=== PATIENT | female | born 1945 | race African-American/Black ===

== ENCOUNTER 2021-06-25 11:09 | Outpatient (REF) | payer MEDICAID, SELFPAY | END 2021-06-25 11:10 | disposition home or self-care (01) | LOC: HO.MAMMO 11:09 | PROVIDERS: PCP Student in an Organized Health Care Education/Training Program; Visit Provider Internal Medicine | DX: Z13.89 Encounter for screening for other disorder (principal) ==

== ENCOUNTER 2022-07-19 13:03 | Outpatient (REF) | payer OTHER, SELFPAY ==
[2022-07-19 14:14] LABS: Albumin Level 3.3 g/dL (3.5-5.0); Calcium 8.3 mg/dL (8.4-10.2)
[2022-07-21 14:24] LABS: Calcium (PTHI) 8.5 mg/dL (8.6-10.4); PTHI 86 pg/mL (16-77)
== END 2022-07-19 13:04 | disposition home or self-care (01) ==
LOC: HO.LNP 13:03
PROVIDERS: Visit Provider Surgery
DX: Z98.890 Other specified postprocedural states (principal)
CPT/HCPCS: 82040; 82310; 83970

== ENCOUNTER → 2022-08-31 10:34 | Outpatient (BNVA) | payer OTHER, SELFPAY | PROVIDERS: PCP Student in an Organized Health Care Education/Training Program; Visit Provider Physician Assistant Surgical ==

== ENCOUNTER 2022-11-11 10:49 | Outpatient (AMB) | payer OTHER, SELFPAY ==
[2022-11-11 10:56] VITALS: BP 143/67; PULSE 72; TEMP 36.4; O2SAT 95; BMI 52.3
--- NOTE | 2022-11-11 10:56 | A.OFFVIS_ITS ---
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 Her goal is to lose enough weight to have BMI <40 for bilateral knee replacements. This would be a weight of under 245 lbs. Patient speaks Bengali and Swahili and janine helps her with interpretation. She has been in a wheelchair for 2 years -exacerbating event was being in a mcc after diagnosis or hypercalcemia. She can stand and pivot with support on either side. She lives with her daughter, Carolyn - who was part of our SWL program. She wakes at: 5am bed at 8pm - spends alot of her day in bed. Breakfast: 8am - tea with honey, 2 eggs and 1 o2 pieces of bread with butter. berries or grapes. Lunch: 12 pm - Ensure Talha and 2 hot dogs no bread Dinner: 6-7 pm - yam, chicken and vegetables, water or Cranberry juice After dinner: nothing Other snacks: nothing Liquids:sometimes soda, juice everyday. Alcohol intake: none, tobacco: none, marijuana: none Exercise: she has PT and OT coming to her house each 2 d/ week. Does these 2 extra days per week Last mammogram:3-4 years ago. Last pap smear: not any more ACOSTA:0 ESS: 13 GERD: 0 QOL: 99 PFSH Surgical History Hx of parathyroidectomy Family History Mother No problems noted. Father No problems noted. Brother Hypertension Daughter Hypertension Social History Alcohol intake: never Patient Tobacco Use Status: Never used Tobacco Physical Exam Vital Signs: Last Vital Signs Temp 97.5 F 07/13/23 10:56 Pulse 72 11/11/22 10:56 BP 143/67 H 11/11/22 10:56 Pulse Ox 95 11/11/22 10:56 Oxygen Delivery Method Room Air 11/11/22 10:56 BMI result Body Mass Index 52.3 Const Other: Pt is in a wheelchair Wheelchair weight of 40 lbs) Has only a few front teeth General: cooperative, no acute distress and well developed Nutritional Appearance: obese Orientation/consciousness: patient oriented x3 HEENT Head: Yes normal to inspection Neck Neck: Yes normal visual inspection Thyroid: Thyroid normal Resp Effort & Inspection: normal respiratory effort Auscultation: clear to auscultation bilaterally Cardio Rate: regular rate Rhythm: regular rhythm Heart sounds: S1 normal heart sound present, S2 normal heart sound present and no murmurs GI Inspection: No distended and Yes obesity Palpation (GI): Soft to palpation, nontender and no guarding Skin General skin exam: no rashes or lesions noted and other (warm and dry) Wounds: no wounds Hair: normal Neuro General: patient oriented x3 Extrem General: Yes no pedal edema and Yes no calf tenderness Psych Attitude: cooperative Thought process: Normal thought process present Thought content: Normal thought content present Insight: Good insight present (Psych) Judgement: Good judgement present (Psych) Assessment & Plan Assessment & Plan (1) Morbid obesity: Code(s): E66.01 - Morbid (severe) obesity due to excess calories Plan: This is a 77 yo woman with morbid obesity who is wheelchair bound who will start SWL program to prepare for bariatric surgery. Patietn and daughter understand that she will need to lose at least 32 lbs before surgery. Blood work, h pylori , CXR, ECG, Abd ULS and UGI have been ordered. She is being scheduled for RD and BH initial consultations. She will start SWL classes and watch at 3 classes before her next appt with Teresa. 1. Adequate sleep of 8 hours per night discussed - needs to be in chair most of the days 2. Healthy meal plan - stop all sweetened drinks All meals/MR's need to take 20 minutes to complete - patient has few front teeth and difficult to eat hard foods. tea with 1 tsp honey 9am - 30 gram shake - Ensure Talha 12 pm - 30 gram shake 3 pm- yogurt or cc 6 pm- dinner of 6 oz lean protein, 8 oz vegetable, 1 serving fruit Exercise - Cardio 4 d week - Dilan Capps wheelchair videos 30 minutes 4 d/ week now Pt is unable to weigh herself at home. Next appt with me in 3 weeks. Text me with any questions and weekly weights. Patient is morbidly obese and is not considered stable at this time.?I spent a total of 60 minutes reviewing/updating records, examining the patient and counseling the patient on weight management as detailed above. (2) HTN (hypertension), benign: Code(s): I10 - Essential (primary) hypertension (3) Hyperlipidemia: Code(s): E78.5 - Hyperlipidemia, unspecified (4) Osteoporosis: Code(s): M81.0 - Age-related osteoporosis without current pathological fracture (5) Hypocalcemia: Code(s): E83.51 - Hypocalcemia (6) Daytime somnolence: Code(s): R40.0 - Somnolence Orders: Orders Vitamin B12 and Folate Today E66.01 - Morbid (severe) obesity due to excess calories, E78.5 - Hyperlipidemia, unspecified, E83.51 - Hypocalcemia, I10 - Essential (primary) hypertension, M81.0 - Age-related osteoporosis without current pathological fracture, R40.0 - Somnolence, Z01.818 - Encounter for other preprocedural examination Comprehensive Met. Panel Today E66.01 - Morbid (severe) obesity due to excess calories, E78.5 - Hyperlipidemia, unspecified, E83.51 - Hypocalcemia, I10 - Esse ntial (primary) hypertension, M81.0 - Age-related osteoporosis without current pathological fracture, R40.0 - Somnolence, Z01.818 - Encounter for other preprocedural examination C Reactive Protein Today E66.01 - Morbid (severe) obesity due to excess calories, E78.5 - Hyperlipidemia, unspecified, E83.51 - Hypocalcemia, I10 - Essential (primary) hypertension, M81.0 - Age-related osteoporosis without current pathological fracture, R40.0 - Somnolence, Z01.818 - Encounter for other preprocedural examination Ferritin Today E66.01 - Morbid (severe) obesity due to excess calories, E78.5 - Hyperlipidemia, unspecified, E83.51 - Hypocalcemia, I10 - Essential (primary) hypertension, M81.0 - Age-related osteoporosis without current pathological frac ture, R40.0 - Somnolence, Z01.818 - Encounter for other preprocedural examination Hemoglobin A1c Today E66.01 - Morbid (severe) obesity due to excess calories, E78.5 - Hyperlipidemia, unspecified, E83.51 - Hypocalcemia, I10 - Essential (primary) hypertension, M81.0 - Age-related osteoporosis without current pathological fracture, R40.0 - Somnolence, Z01.818 - Encounter for other preprocedural examination Insulin Today E66.01 - Morbid (severe) obesity due to excess calories, E78.5 - Hyperlipidemia, unspecified, E83.51 - Hypocalcemia, I10 - Essential (primary) hypertension, M81.0 - Age-related osteoporosis without current pathological fracture, R40.0 - Somnolence, Z01.818 - Encounter for other preprocedural examination IRON PROFILE Today E66.01 - Morbid (severe) obesity due to excess calories, E78.5 - Hyperlipidemia, unspecified, E83.51 - Hypocalcemia, I10 - Essential (primary) hypertension, M81.0 - Age-related osteoporosis without current pathological fracture, R40.0 - Somnolence, Z01.818 - Encounter for other preprocedural examination Lipid Panel Today E66.01 - Morbid (severe) obesity due to excess calories, E78.5 - Hyperlipidemia, unspecified, E83.51 - Hypocalcemia, I10 - Essential (primary) hypertension, M81.0 - Age-related osteoporosis without current pathological frac ture, R40.0 - Somnolence, Z01.818 - Encounter for other preprocedural examination PTHI Today E66.01 - Morbid (severe) obesity due to excess calories, E78.5 - Hyperlipidemia, unspecified, E83.51 - Hypocalcemia, I10 - Essential (primary) hypertension, M81.0 - Age-related osteoporosis without current pathological fracture, R40.0 - Somnolence, Z01.818 - Encounter for other preprocedural examination TSH reflex Free T4 Today E66.01 - Morbid (severe) obesity due to excess calories, E78.5 - Hyperlipidemia, unspecified, E83.51 - Hypocalcemia, I10 - Essential (primary) hypertension, M81.0 - Age-related osteoporosis without current pathological fracture, R40.0 - Somnolence, Z01.818 - Encounter for other preprocedural examination Vitamin A Today E66.01 - Morbid (severe) obesity due to excess calories, E78.5 - Hyperlipidemia, unspecified, E83.51 - Hypocalcemia, I10 - Essential (primary) hypertension, M81.0 - Age-related osteoporosis without current pathological fracture, R40.0 - Somnolence, Z01.818 - Encounter for other preprocedural examination Vitamin B1 Today E66.01 - Morbid (severe) obesity due to excess calories, E78.5 - Hyperlipidemia, unspecified, E83.51 - Hypocalcemia, I10 - Essential (primary) hypertension, M81.0 - Age-related osteoporosis without current pathological fracture, R40.0 - Somnolence, Z01.818 - Encounter for other preprocedural examination Vitamin D 25-OH Total Today E66.01 - Morbid (severe) obesity due to excess calories, E78.5 - Hyperlipidemia, unspecified, E83.51 - Hypocalcemia, I10 - Essential (primary) hypertension, M81.0 - Age-related osteoporosis without current pathological fracture, R40.0 - Somnolence, Z01.818 - Encounter for other preprocedural examination Zinc Today E66.01 - Morbid (severe) obesity due to excess calories, E78.5 - Hyperlipidemia, unspecified, E83.51 - Hypocalcemia, I10 - Essential (primary) hypertension, M81.0 - Age-related osteoporosis without current pathological fracture, R40.0 - Somnolence, Z01.818 - Encounter for other preprocedural examination ECG 12 lead EKG Today E66.01 - Morbid (severe) obesity due to excess calories, E78.5 - Hyperlipidemia, unspecified, E83.51 - Hypocalcemia, I10 - Essential (primary) hypertension, M81.0 - Age-related osteoporosis without current pathological fracture, R40.0 - Somnolence, Z01.818 - Encounter for other preprocedural examination FL upper GI w air Today E66.01 - Morbid (severe) obesity due to excess calories, E78.5 - Hyperlipidemia, unspecified, E83.51 - Hypocalcemia, I10 - Essential (primary) hypertension, M81.0 - Age-related osteoporosis without current patholo gical fracture, R40.0 - Somnolence, Z01.818 - Encounter for other preprocedural examination Complete Blood Count Auto Diff Today E66.01 - Morbid (severe) obesity due to excess calories, E78.5 - Hyperlipidemia, unspecified, E83.51 - Hypocalcemia, I10 - Essential (primary) hypertension, M81.0 - Age-related osteoporosis without current pathological fracture, R40.0 - Somnolence, Z01.818 - Encounter for other preprocedural examination RT home sleep study Today E66.01 - Morbid (severe) obesity due to excess calories, E78.5 - Hyperlipidemia, unspecified, E83.51 - Hypocalcemia, I10 - Essential (primary) hypertension, M81.0 - Age-related osteoporosis without current pathological fracture, R40.0 - Somnolence, Z01.818 - Encounter for other preprocedural examination H Pylori Breath Test Today E66.01 - Morbid (severe) obesity due to excess calories, E78.5 - Hyperlipidemia, unspecified, E83.51 - Hypocalcemia, I10 - Esse ntial (primary) hypertension, M81.0 - Age-related osteoporosis without current pathological fracture, R40.0 - Somnolence, Z01.818 - Encounter for other preprocedural examination US abdomen comp w elastography Today E66.01 - Morbid (severe) obesity due to excess calories, E78.5 - Hyperlipidemia, unspecified, E83.51 - Hypocalcemia, I10 - Essential (primary) hypertension, M81.0 - Age-related osteoporosis without current pathological fracture, R40.0 - Somnolence, Z01.818 - Encounter for other preprocedural examination XR chest 2V Today E66.01 - Morbid (severe) obesity due to excess calories, E78.5 - Hyperlipidemia, unspecified, E83.51 - Hypocalcemia, I10 - Essential (primary) hypertension, M81.0 - Age-related osteoporosis without current pathological fracture, R40.0 - Somnolence, Z01.818 - Encounter for other preprocedural examination Referrals Behavioral Health Referral E66.01 - Morbid (severe) obesity due to excess calories, E78.5 - Hyperlipidemia, unspecified, E83.51 - Hypocalcemia, I10 - Essential (primary) hypertension, M81.0 - Age-related osteoporosis without current pathological fracture, R40.0 - Somnolence, Z01.818 - Encounter for other preprocedural examination Nutrition/Dietitian Referral E66.01 - Morbid (severe) obesity due to excess calories, E78.5 - Hyperlipidemia, unspecified, E83.51 - Hypocalcemia, I10 - Essential (primary) hypertension, M81.0 - Age-related osteoporosis without current pathological fracture, R40.0 - Somnolence, Z01.818 - Encounter for other preprocedural examination Coding Level of Care Code New Pt Level 5 (93216) Diagnoses Morbid obesity E66.01 HTN (hypertension), benign I10 Hyperlipidemia E78.5 Osteoporosis M81.0 Hypocalcemia E83.51 Daytime somnolence R40.0
== END 2022-11-11 11:56 | disposition home or self-care (01) ==
PROVIDERS: PCP Student in an Organized Health Care Education/Training Program; Visit Provider Physician Assistant
DX: E66.01 Morbid (severe) obesity due to excess calories (principal); Z68.43 Body mass index [BMI] 50.0-59.9, adult; I10 Essential (primary) hypertension; E78.5 Hyperlipidemia, unspecified; M81.0 Age-related osteoporosis without current pathological fracture; E83.51 Hypocalcemia; R40.0 Somnolence
CPT/HCPCS: 99205

== ENCOUNTER → 2022-11-11 10:49 | Outpatient (BNVA) | payer OTHER, SELFPAY | PROVIDERS: PCP Student in an Organized Health Care Education/Training Program; Visit Provider Physician Assistant | DX: E66.01 Morbid (severe) obesity due to excess calories (principal); Z68.43 Body mass index [BMI] 50.0-59.9, adult; I10 Essential (primary) hypertension; E78.5 Hyperlipidemia, unspecified; M81.0 Age-related osteoporosis without current pathological fracture; E83.51 Hypocalcemia; R40.0 Somnolence | CPT/HCPCS: 99202 ==

== ENCOUNTER 2022-11-23 12:30 | Outpatient (AMB) | payer OTHER, SELFPAY ==
--- NOTE | 2022-11-23 12:36 | A.OFFWM_ITS ---
Intake Intake Visit Reasons: VIDEO Intake Allergies No Known Allergies Allergy (Verified 11/11/22 11:05) PFSH Surgical History Hx of parathyroidectomy Family History Mother No problems noted. Father No problems noted. Brother Hypertension Daughter Hypertension Social History Alcohol intake: never Patient Tobacco Use Status: Never used Tobacco Behavioral Health Assessment Weight Management Therapy Therapy Notes Details Pt is looking to have weight loss surgery to help improve her health and quality of life. She needs to have knee replacement and is currently bed bound. Pt's daughter stated that her mom has always been very active and for her to be bed bound is very depressing for her. Daughter had to translate for her during this intake. Daughter and patient denied any mental health treatment or history and no problems with drugs or alcohol. Presenting Concerns Referral Source provider Reason for referral weight loss surgery evaluation Precipitating Event obesity Living Situation Current Living Situation Relative's/Guardian's Luci At risk of losing current housing? No Satisfied with current living situation? Yes Comments Pt lives with her adult daughter, and three grandchildren ages 27, 22, 21. Food/Weight/Diet Expectations of change weight loss and maintenance History/Relationship with food Patient was eating rice, bread, fish, meat, fruit, also would eat out weekly, drinking juice. Larger portions. History/Relationship with weight Pt reported that she was thin when she was young and then started to gain weight History/Relationship with dieting Three years ago she was on a low calorie/carb diet in preparation for knee surgery, lost 30lbs and then due to pandemic, never had surgery and gained the weight back more than 50lbs. Binge Eating Do you frequently eat large amounts of food in short periods of time, not feeling physically hungry? No Do you feel out of control when you eat a large amount of food in a short period of time? No Do you eat large amounts of food rapidly and typically alone? No Night Eating Do you wake up at least once during the night to eat? No If you wake up in the night, do you find that it is necessary to eat something in order to fall back asleep? No Do you have little or no appetite in the morning and feel very hungry in the evening, often overeating between dinner and when you go to bed? No Social History Family history and relationship Pt is a , her 21 years ago. She has 4 adult children and grandchildren. She was born and raised in [facility] and has been here for 4 years. Parental/Familial trimming cutter obligations none, but she requires care. Developmental history and status no issues known Social support daughter Community support Community in the area as well relatives back home Temple in [place]. Jehovah'S Witness/Spirituality Restorationism Cultural/Ethnic information , speaks Swahili. Legal Involvement and History Current or historical involvement with the legal system? none Education Highest grade completed Patient can read and write in [place]. Can understand if spoken very slowly. Preferred learning style Auditory, Verbal, Written, Learn by doing and Visual Currently enrolled in educational program? No Interested in further educational program? No Employment Employment Status Retired Wants help to find employment? No Financial Situation Describe current financial situation Comfortable Financial assistance? SSDI Service Service? No Mental Health and Addiction Treatment Current/Past substance abuse? No Current/Past addictive behavior concerns? No Medical and Physical Health Summary Physical exam in the last year? Yes Pain Screening Current pain? Yes Pain in the last few months? Yes Medications Is the patient compliant with medications? Yes Does the patient have [place] Guardian in place? Not applicable Does the patient use complimentary health approaches? Yes Trauma/Abuse History History of trauma? No Questionnaires Binge Eating Scale Group 1 A. I don't feel self-conscious about my wt. or body size when I'm with others. B. I feel concerned about how I look to others, but it normally does not make me fell disappointed with myself C. I do get self-conscious about my appearance and wt. which makes me feel disappointed in myself. D. I feel very self-conscious about my wt. and frequently I feel intense shame and disgust for myself. I try to avoid social contacts because of my self- consciousness. Response Group 1: C Group 2 A. I don't have any difficulty eating slowly in the proper manner. B. Although I seem to gobble down foods, I don't end up feeling stuffed because of eating to much. C. At times, I tend to eat quickly and then, I feel uncomfortably full afterwards. D. I have the habit of bolting down my food, without really chewing it. When this happens I usually feel uncomfortably stuffed because I've eaten to much. Response Group 2: A Group 3 A. I feel capable to control my eating urges when I want to. B. I feel like I have failed to control my eating more than the average person. C. I feel utterly helpless when it comes to feeling in control of my eating urges. D. Because I feel so helpless about controlling my eating I have become very desperate about trying to get control. Response Group 3: A Group 4 A. I don't have the habit of eating when I'm bored. B. I sometimes eat when I'm bored, but often I'm able to get busy and get my mind off food. C. I have a regular habit of eating when I'm bored, but occasionally, I can use some other activity to get my mind off eating. D. I have a strong habit of eating when I'm bored. Nothing seems to help me breath the habit. Response Group 4: C Group 5 A. I'm usually physically hungry when I eat something. B. Occasionally, I eat something on impulse even though I really am not hungry. C. I have the regular habit of eating foods, that I might not really enjoy, to satisfy a hungry feeling even though physically, I don't need the food. D. Although I'm not physically hungry, I get a hungry feeling in my mouth that only seems to be satisfied when I eat a food, like sandwich, that fills my mouth. Sometimes, when I eat the food to satisfy my mouth hunger, I then spit the food out so I won't gain weight. Response Group 5: B Group 6 A. I don't feel any guilt or self-hate after I overeat. B. After I overeat, occasionally I feel guilt or self-hate. C. Almost all the time I experience strong guilt or self-hate after I overeat. Response Group 6: C Group 7 A. I don't lose total control of my eating when dieting even after periods when I overeat. B. Sometimes when I eat a forbidden food on a diet, I feel like I blew it and eat even more. C. Frequently, I have the habit of saying to myself, I've blown it now, why not go all the way, when I overeat on a diet. When that happens I eat more. D. I have a regular habit of starting a strict diets for myself but I break the diets by going on an eating binge. My life seems to be either a feast or famine. Response Group 7: A Group 8 A. I rarely eat so much food that I feel uncomfortably stuffed afterwards. B. Usually about once a month, I each such a quantity of food, I end up feeling very stuffed. C. I have regular periods during the month when I eat large amounts of food, either at mealtime or at snacks. D. I eat so much food that I regularly feel quite uncomfortable after eating and sometimes a bit nauseous. Response Group 8: C Group 9 A. My level of calorie intake does not go up very high or go down very low on a regular basis. B. Sometimes after I overeat, I will try to reduce my caloric intake to almost nothing to compensate for the excess calories I've eaten. C. I have a regular habit of overeating during the night. It seems that my routine is not to be hungry in the morning but overeat in the evening. D. In my adult years, I have had week-long periods where I practically starve myself. This follows periods when I overeat. It seems I live a life of either feast or famine. Response Group 9: A Group 10 A. I usually am able to stop eating when I want to. I know when enough is enough. B. Every so often, I experience a compulsion to eat which I can't seem to control. C. Frequently, I experience strong urges to eat which I seem unable to control, but at other times I can control my eating urges. D. I feel incapable of controlling urges to eat. I have a fear of not being able to stop eating voluntarily. Response Group 10: A Group 11 A. I don't have any problem stopping eating when I feel full. B. I usually can stop eating when I feel full but occasionally overeat leaving me feeling uncomfortably stuffed. C. I have a problem stopping eating once I start and usually I feel uncomfortably stuffed after I eat a meal. D. Because I have a problem not being able to stop eating when I want, I sometimes have to induce vomiting to relieve my stuffed feeling. Response Group 11: A Group 12 A. I seem to eat just as much when I'm with others, Family social gatherings as when I'm by myself. B. Sometimes, when I'm with other persons, I don't eat as much as I want to eat because I'm self-conscious about my eating. C. Frequently, I eat only a small amount of food when others are present, because I'm very embarrassed about my eating. D. I feel so ashamed about overeating that I pick times to overeat when I know no one will see me. I feel like a closet eater. Response Group 12: A Group 13 A. I eat three meals a day with only an occasional between meal snack. B. I eat 3 meals a day, but I also normally snack between meals. C. When I am snacking heavily, I get in the habit of skipping regular meals. D. There are regular periods when I seem to be continually eating, with no planned meals. Response Group 13: B Group 14 A. I don't think much about trying to control unwanted eating urges. B. At least some of the time, I feel my thoughts are pre-occupied with trying to control my eating urges. C. I feel that frequently I spend much time thinking about how much I ate or about trying not to eat anymore. D. It seems to me that most of my waking hours are pre-occupied by thoughts about eating or not eating. I feel like I'm constantly struggling not to eat. Response Group 14: B Group 15 A. I don't think about food a great deal. B. I have strong craving for food but they last only for brief periods of time. C. I have days when I can't seem to think about anything else but food. D. Most of my days seem to be pre-occupied with thoughts about food. I feel like I live to eat. Response Group 15: A Group 16 A. I usually know whether or not I'm physically hungry. I take the right portion of food to satisfy me. B. Occasionally, I feel uncertain about knowing whether or not I'm physically hungry. A these times it's hard to know how much food I should take to satisfy me. C. Even though I might know how many calories I should eat, I don't have any idea what is a normal amount of food for me. Response Group 16: A Binge Eating Score: 11 Score less than 17 Minimal Risk Score between 18-26 Moderate Risk Score between 27-46 High Risk Assessment & Plan Assessment & Plan (1) Adjustment disorder, unspecified: Code(s): F43.20 - Adjustment disorder, unspecified (2) Morbid obesity: Code(s): E66.01 - Morbid (severe) obesity due to excess calories Plan Patient is cleared for surgery when ready. She has no serious mental health barriers and many supports. Telehealth Telehealth Location of provider rendering services: other Patient Identification confirmed using: Name, : Yes Telehealth method: video Patient verbally consented to treatment: Yes Patient verbally consented to billing insurance company: Yes Patient informed of any privacy concerns related to visit: Yes Minutes spent on Phone/Video with Pt.: 35 Coding Level of Care Code Tele Psy Diag Danika ([id number]) Diagnoses Adjustment disorder, unspecified F43.20 Morbid obesity E66.01 Time Spent (min) 35
== END 2022-11-23 15:54 | disposition home or self-care (01) ==
LOC: HO.HBST 13:41
PROVIDERS: PCP Student in an Organized Health Care Education/Training Program; Visit Provider Counselor Mental Health
DX: F43.20 Adjustment disorder, unspecified (principal); E66.01 Morbid (severe) obesity due to excess calories
CPT/HCPCS: 90791

== ENCOUNTER → 2022-11-23 12:30 | Outpatient (BNVA) | payer OTHER, SELFPAY | PROVIDERS: PCP Student in an Organized Health Care Education/Training Program; Visit Provider Counselor Mental Health | DX: F43.20 Adjustment disorder, unspecified (principal); E66.01 Morbid (severe) obesity due to excess calories ==

== ENCOUNTER 2022-11-25 11:47 | Outpatient (AMB) | payer OTHER, SELFPAY ==
--- NOTE | 2022-11-25 11:35 | A.OFFVIS_ITS ---
Intake Intake Visit Reasons: VIDEO Initial Nutrition SWL Rotary Drier Feeder Required: No Allergies No Known Allergies Allergy (Verified 11/11/22 11:05) HPI Nutrition Presentation Reason for consult elevated BMI Diet Assmnt Details tea with 1 tsp honey 9am - 30 gram shake - Premier 12 pm - 30 gram shake 3? pm- yogurt or 2 eggs 6 pm- dinner of 6 oz lean protein, 8 oz vegetable , fruit last night was fish, broccoli and squash Hydration: over 64oz water per day Wheelchair exercises 30 minutes 3x per week SWL online classes : 07/07 Her goal is to lose enough weight to have BMI <40 for bilateral knee replacements. This would be a weight of under 245 lbs. Patient speaks [place] and Swahili and janine helps her with interpretation. She has been in a wheelchair for 2 years -exacerbating event was being in a skilled nursing. She can stand and pivot with support on either side. She lives with her daughter, Carolyn - who was part of our SW program.?Daughter does her cooking and grocery shopping. Daughter provided most of the information documented in todays visit Dietary counseling reduction Diagnosis Nutrition problem #1 overweight/obesity As related to (etiology) #1 excess energy intake and physical inactivity As evidenced by (sign/symptom) #1 high BMI Monitoring/Goals Nutrition problem monitoring total energy intake, level of knowledge/skill, total PRO intake, total CHO intake and weight Outcome progress progressing Learning/Education Readiness to learn good Stages of change action Educational materials provided Yes Most Recent Diabetes Results: Calcium 8.3 mg/dL (8.4-10.2) L 07/19/22 Albumin 3.3 g/dL (3.5-5.0) L 07[facility]19/22 [facility] Surgical History Hx of parathyroidectomy Family History Mother No problems noted. Father No problems noted. Brother Hypertension Daughter Hypertension Social History Alcohol intake: never Patient Tobacco Use Status: Never used Tobacco Assessment & Plan Assessment & Plan (1) Morbid obesity: Code(s): E66.01 - Morbid (severe) obesity due to excess calories Patient Instructions: Patient seems to be doing very well in program so far, her daughter plays a major role what foods she has access to. I recommended patient's daughter watch the classes on postop nutrition as so that she can better understand her mothers needs. she will follow upw tih mn 12/22 4pm- daughter needs late in the day appts due to work. Telehealth Telehealth Location of provider rendering services: practice address Location of patient: address on file Patient Identification confirmed using: Name, : Yes Telehealth method: voice only Patient verbally consented to treatment: Yes Patient verbally consented to billing insurance company: Yes Patient informed of any privacy concerns related to visit: Yes Minutes spent on Phone/Video with Pt.: 20 Coding Level of Care Code Nutr Indiv Intake (30652) Diagnoses Morbid obesity E66.01 Time Spent (min) 20
== END 2022-11-25 11:52 | disposition home or self-care (01) ==
LOC: HO.HBS 11:47
PROVIDERS: PCP Student in an Organized Health Care Education/Training Program; Visit Provider Dietitian, Registered
DX: E66.01 Morbid (severe) obesity due to excess calories (principal)

== ENCOUNTER → 2022-11-25 11:47 | Outpatient (BNVA) | payer OTHER, SELFPAY | PROVIDERS: PCP Student in an Organized Health Care Education/Training Program; Visit Provider Dietitian, Registered | DX: E66.01 Morbid (severe) obesity due to excess calories (principal) | CPT/HCPCS: 97802 ==

== ENCOUNTER 2022-11-29 10:37 | Outpatient (REF) | payer OTHER, SELFPAY ==
--- NOTE | ~2022-11-29 | XR_ITS ---
EXAMINATION: XR CHEST CLINICAL INFORMATION: Somnolence COMPARISON: None available. TECHNIQUE: 2 views of the chest were obtained. FINDINGS: Bilateral low lung volumes. Slight accentuation of the pulmonary vasculature. Bibasilar atelectasis. No pneumothorax. Mildly prominent cardiomediastinal silhouette and widening of the mediastinum. Trachea is midline. No large pleural effusion. Osseous structures are intact. Soft tissues are unremarkable. XR/XR chest 2V IMPRESSION: 1. Bilateral low lung volumes. 2. Slight accentuation of the pulmonary vasculature. 3. Bibasilar atelectasis. 4. Mildly prominent cardiomediastinal silhouette and widening of the mediastinum.
--- NOTE | 2022-11-29 10:47 | ECG_ITS ---
Test Reason : R40.0 SOMNOLENCE Blood Pressure : / mmHG Vent. Rate : 081 BPM Atrial Rate : 080 BPM P-R Int : 280 ms QRS Dur : 110 ms QT Int : 564 ms P-R-T Axes : 000 -51 061 degrees QTc Int : 655 ms Normal sinus rhythm Left anterior fascicular block with 1st degree A-V block Minimal voltage criteria for LVH, may be normal variant ( [place] product ) Cannot rule out Anterior infarct , age undetermined Abnormal ECG No previous ECGs available Referred By: Charley Hale Electronically Signed By:TASH BURT
[2022-11-29 11:01] LABS: MANUAL DIFF FLAG NO
[2022-11-29 11:50] LABS: Basophils Percent Auto 0.6 % (0-2); Eosinophils Absolute Auto 0.2 X10*3/uL (0.0-0.4); Eosinophils Percent Auto 3.3 % (0-4); Hematocrit 42.2 % (37.0-47.0); Hemoglobin 13.4 g/dl (12.0-16.0); Imm Gran Abs Auto 0.02 X10*3/uL (0.00-0.03); Imm Gran Pct Auto 0.4 % (0.0-0.4); Lymphocytes Absolute Auto 1.5 X10*3/uL (1.2-4.9); Lymphocytes Percent Auto 27.9 % (20-40); Mean Corpuscular HGB Conc 31.8 g/dl (31.0-35.0); Mean Corpuscular Hemoglobin 24.1 pg (27.0-33.0); Mean Platelet Volume 9.9 fL (9.4-12.3); Monocytes Absolute Auto 0.3 X10*3/uL (0.1-1.2); Monocytes Percent Auto 5.9 % (2-11); Neutrophils Absolute Auto 3.3 x10*3/uL (2.0-8.3); Neutrophils Percent Auto 61.9 % (45-73); Platelet Count 224 X10*3/uL (160-400); Red Blood Count 5.55 X10*6/uL (4.20-5.50); Red Cell Distribution Width 20.1 % (11.0-16.0); White Blood Count 5.4 X10*3/uL (4.8-10.8)
[2022-11-29 11:53] LABS: Estimated Average Glucose 97 mg/dL; Hemoglobin A1C 110.8599 umol/L
[2022-11-29 13:12] LABS: Alanine Aminotransferase 10 U/L (0-31); Albumin Level 4.1 g/dL (3.5-5.0); Alkaline Phosphatase 65 U/L (39-117); Anion Gap 19 (12-20); Aspartate Amino Transferase 12 U/L (5-31); Bilirubin Total 0.8 mg/dL (0.0-1.0); Blood Urea Nitrogen 38 mg/dL (9-16); C Reactive Protein 1.33 mg/dL (< or = 0.50); Carbon Dioxide 23 mmol/L (22-29); Chloride 107 mmol/L (96-108); Cholesterol 160 mg/dL; Estimated Glomerular Filt Rate 52; Glucose Random 98 mg/dL (60-115); HDL Cholesterol 47 mg/dL; Iron 45 mcg/dL (30-160); LDL Cholesterol Calculated 103 mg/dl; Percent Iron Saturation 18 % (15-50); Potassium 3.7 mmol/L (3.3-5.1); Sodium 145 mmol/L (135-145); Total Iron Binding Capacity 257 mcg/dL (228-428); Total Protein 8.1 g/dL (6.5-8.0); Triglycerides 54 mg/dL; Unsaturated Iron Binding 212 ug/dL
[2022-11-29 13:32] LABS: Ferritin 54 ng/mL (10-250); Insulin 18 uU/mL (2-29); TSH reflex Free T4 2.28 uIU/mL (0.32-4.0); Vitamin D 25-OH Total 31.9 ng/mL (>30)
[2022-11-29 13:35] LABS: Folate 14.9 ng/mL (> or = 4.0); Vitamin B12 1077 pg/mL (200-900)
[2022-11-30 19:04] LABS: Calcium (PTHI) 8.3 mg/dL (8.6-10.4); PTHI 112 pg/mL (16-77)
[2022-12-02 02:24] LABS: Zinc 72 mcg/dL (60-130)
[2022-12-02 16:13] LABS: Vitamin B1 24 nmol/L (8-30)
[2022-12-03 03:03] LABS: Vitamin A 46 mcg/dL (38-98)
== END 2022-11-29 10:38 | disposition home or self-care (01) ==
LOC: HO.LAB 10:37
PROVIDERS: PCP Student in an Organized Health Care Education/Training Program; Visit Provider Physician Assistant
DX: Z01.818 Encounter for other preprocedural examination (principal); E66.01 Morbid (severe) obesity due to excess calories; E78.5 Hyperlipidemia, unspecified; E83.51 Hypocalcemia; I10 Essential (primary) hypertension; M81.0 Age-related osteoporosis without current pathological fracture; R40.0 Somnolence
CPT/HCPCS: 36415; 71046; 80053; 80061; 82306; 82607; 82728; 82746; 83036; 83525; 83540; 83970; 84425; 84443; 84590; 84630; 85025; 86140; 93005

== ENCOUNTER → 2022-11-29 10:47 | Outpatient (BNV) | payer OTHER, SELFPAY | PROVIDERS: PCP Student in an Organized Health Care Education/Training Program; Visit Provider Internal Medicine | DX: I49.1 Atrial premature depolarization (principal) | CPT/HCPCS: 93010 ==

== ENCOUNTER 2022-12-10 09:34 | Outpatient (AMB) | payer OTHER, SELFPAY ==
--- NOTE | 2022-12-10 09:42 | A.OFFVIS_ITS ---
Intake VS Expanded 12/10/22 09:46 Height 5 ft 6 in Weight 311 lb BMI 50.2 BP 138/77 Blood Pressure Location Lt brachial Blood Pressure Position Sitting Pulse 73 Pulse Source Pulse Oximeter Temp 97.9 F Temperature Source Temporal Artery Scan Pulse Oximetry 95 Oxygen Delivery Method Room Air Intake Visit Reasons: (OV) F/U SWL Accompanied by: Self / Same As Patient Allergies No Known Allergies Allergy (Verified 12/10/22 09:42) Medication List - Last Reconciled 12/10/22 by Charley Hale PA-C amlodipine 10 mg PO QAM aspirin 81 mg PO QAM atorvastatin 10 mg PO QAM calcium citrate-vitamin D3 315 mg-5 mcg (200 unit) 0 tabs PO food supplemt, lactose-reduced (Ensure oral liquid) 1 ea PO TID furosemide 0 mg PO BID ibuprofen 600 mg PO TID romosozumab-aqqg mg subcut tramadol 50 mg PO Q12H PRN HPI HPI Comments History of Present Illness Details This is the patients second appt for SWL. Starting weight was 324.1 lbs on 11/11/22. TBWL is 13.1 lbs or 4% TBWL. Meal plan: 8am - tea and Premier shake 12pm - shake 3pm - 2 hb eggs or yogurt 6pm - vegetables and chicken or fish mostly Exercise plan: Dilan leo 2 d/ week. PT 2d/week. Pre op work up completed as follows: SWL classes - 08/07 appts -cleared RD appts - follow up on 12/22 H pylori - today Labs - done CXR -IMPRESSION: 1.? Bilateral low lung volumes. 2.? Slight accentuation of the pulmonary vasculature. 3.? Bibasilar atelectasis. 4.? Mildly prominent cardiomediastinal silhouette and widening of the mediastinum. ECG - Normal sinus rhythm Left anterior fascicular block with 1st degree A-V block Minimal voltage criteria for LVH, may be normal variant ( [place] product ) Cannot rule out Anterior infarct , age undetermined Abnormal ECG No previous ECGs available Sees [facility] Cardiology - Will order ECHO and stress test today ULS and UGI - 12/20 and 01/31 SS ---- 12/20 PFS Surgical History Hx of parathyroidectomy Family History Mother No problems noted. Father No problems noted. Brother Hypertension Daughter Hypertension Social History Alcohol intake: never Patient Tobacco Use Status: Never used Tobacco Physical Exam Vital Signs: Last Vital Signs Temp 97.9 F 12/10/22 09:46 Pulse 73 12/10/22 09:46 BP 138/77 12/10/22 09:46 Pulse Ox 95 12/10/22 09:46 Oxygen Delivery Method Room Air 12/10/22 09:46 BMI result Body Mass Index 50.2 Assessment & Plan Assessment & Plan (1) Morbid obesity: Code(s): E66.01 - Morbid (severe) obesity due to excess calories Plan: Great staart with 13 lbs or 4% TBWL. No changes to meal plan. Exercise - PT 2d/ week and Dilan Capps 5d/week now. Practicing deep breaths reviewed with patient and cardiolgy testign ordered today. Next appt in 3 weeks with me. Patient is morbidly obese and is not considered stable at this time. I spent 30 minutes in total with patient and her daughter reviewing/updating records, examining the patient and counseling the patient on weight management as detailed above. (2) Abnormal ECG: Code(s): R94.31 - Abnormal electrocardiogram [ECG] [EKG] Plan: Cardiac stress test and ECHO ordered today. Daughter will make appt for her cardiiologist follow up. 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 - Dependence on wheelchair Orders: Orders CA lexiscan stress w rodrigo Today E78.5 - Hyperlipidemia, unspecified, I10 - Essential (primary) hypertension, R94.31 - Abnormal electrocardiogram [ECG] [EKG], Z99.3 - Dependence on wheelchair CA echo transthorac w con Today E78.5 - Hyperlipidemia, unspecified, I10 - Essential (primary) hypertension, R94.31 - Abnormal electrocardiogram [ECG] [EKG], Z99.3 - Dependence on wheelchair NM cardiolite stress test Today E78.5 - Hyperlipidemia, unspecified, I10 - Essential (primary) hypertension, R94.31 - Abnormal electrocardiogram [ECG] [EKG], Z99.3 - Dependence on wheelchair Coding Level of Care Code Est Pt Level 4 (32588) Diagnoses Morbid obesity E66.01 Abnormal ECG R94.31 HTN (hypertension), benign I10 Hyperlipidemia E78.5 Daytime somnolence R40.0 Wheelchair dependence Z99.3
[2022-12-10 09:46] VITALS: BP 138/77; PULSE 73; TEMP 36.6; O2SAT 95; BMI 50.2
== END 2022-12-10 10:22 | disposition home or self-care (01) ==
PROVIDERS: PCP Student in an Organized Health Care Education/Training Program; Visit Provider Physician Assistant
DX: E66.01 Morbid (severe) obesity due to excess calories (principal); R94.31 Abnormal electrocardiogram [ECG] [EKG]; I10 Essential (primary) hypertension; E78.5 Hyperlipidemia, unspecified; R40.0 Somnolence; Z99.3 Dependence on wheelchair
CPT/HCPCS: 99214

== ENCOUNTER → 2022-12-10 09:34 | Outpatient (BNVA) | payer OTHER, SELFPAY | PROVIDERS: PCP Student in an Organized Health Care Education/Training Program; Visit Provider Physician Assistant | DX: Z11.2 Encounter for screening for other bacterial diseases (principal) | CPT/HCPCS: 99212 ==

== ENCOUNTER 2022-12-10 16:15 | Outpatient (REF) | payer OTHER, SELFPAY ==
[2022-12-11 10:31] LABS: H Pylori Breath Test Positive (Negative)
== END 2022-12-10 16:16 | disposition home or self-care (01) ==
LOC: HO.LNP 16:15
PROVIDERS: Visit Provider Physician Assistant
DX: Z01.818 Encounter for other preprocedural examination (principal); E66.01 Morbid (severe) obesity due to excess calories
CPT/HCPCS: 83013

== ENCOUNTER 2022-12-20 09:57 | Outpatient (REF) | payer OTHER, SELFPAY | END 2022-12-20 09:58 | disposition home or self-care (01) | LOC: HO.US 09:57 | PROVIDERS: PCP Student in an Organized Health Care Education/Training Program; Visit Provider Physician Assistant | DX: G47.33 Obstructive sleep apnea (adult) (pediatric) (principal); E66.01 Morbid (severe) obesity due to excess calories; E83.51 Hypocalcemia; R40.0 Somnolence | CPT/HCPCS: 95806 ==

== ENCOUNTER → 2022-12-20 10:09 | Outpatient (BNV) | payer OTHER, SELFPAY | PROVIDERS: PCP Student in an Organized Health Care Education/Training Program; Visit Provider Internal Medicine | DX: G47.33 Obstructive sleep apnea (adult) (pediatric) (principal) | CPT/HCPCS: 95806 ==

== ENCOUNTER 2023-01-07 08:46 | Outpatient (AMB) | payer OTHER, SELFPAY ==
[2023-01-07 08:48] VITALS: BP 137/74; PULSE 67; TEMP 36.1; O2SAT 93; BMI 50.3
--- NOTE | 2023-01-07 08:48 | A.OFFVIS_ITS ---
Intake VS Expanded 01/07/23 08:48 Height 5 ft 6 in Weight 311 lb 12.8 oz BMI 50.3 BP 137/74 Blood Pressure Location Rt radial Blood Pressure Position Sitting Pulse 67 Pulse Source Pulse Oximeter Temp 96.9 F Temperature Source Tympanic Pulse Oximetry 93 Oxygen Delivery Method Room Air Intake Visit Reasons: (OV) F/U SWL Allergies No Known Allergies Allergy (Verified 01/07/23 08:48) HPI HPI Comments History of Present Illness Details [facility] follow up, wheel chair weighs 40 lbs. Codie her daughter is always with her. Feels hungry between 12 pm and 3pm morning- tea, 7:30 am Premeir shake 12pm - Premier shake 3pm - 2 eggs or yogurt 6 pm - vegetables with chicken or fish, sometimes with fruit Exercise - WEd PT at home, PE 30 - 45 3d/ week, really likes them Pre op work up completed as follows: [facility] classes - 12/07 BH appts -cleared RD appts - follow up on 12/22 - needs to be rescheduled H pylori - POSITIVE, finished treatment on on 12/30 - ready for retest after 01/13. Labs - done CXR -IMPRESSION: 1.? Bilateral low lung volumes. 2.? Slight accentuation of the pulmonary vasculature. 3.? Bibasilar atelectasis. 4.? Mildly prominent cardiomediastinal s ilhouette and widening of the mediastinum. ECG - Normal sinus rhythm Left anterior fascicular block with 1st degree A-V block Minimal voltage criteria for LVH, may be normal variant ( [place] product ) Cannot rule out Anterior infarct , age undetermined Abnormal ECG No previous ECGs available Sees [facility] Cardiology - ECHO and stress test ordered on 12/10. Saw her cardiiologist - who agrees [facility] baraitric surgery and has follow up on Feb 01. ULS and UGI - 12/20 (rescheduled to 01/18)and 01/31 SS ---- 12/20, + JOYCE - patient has been [facility] Surgical History Hx of parathyroidectomy Family History Mother No problems noted. Father No problems noted. Brother Hypertension Daughter Hypertension Social History Alcohol intake: never Patient Tobacco Use Status: Never used Tobacco Physical Exam Vital Signs: Last Vital Signs Temp 96.9 F 01/07/23 08:48 Pulse 67 01/07/23 08:48 BP 137/74 01/07/23 08:48 Pulse Ox 93 01/07/23 08:48 Oxygen Delivery Method Room Air 01/07/23 08:48 BMI result Body Mass Index 50.3 Assessment & Plan Assessment & Plan (1) Morbid obesity: Code(s): E66.01 - Morbid (severe) obesity due to excess calories Plan: No weight loss since her last appt - will increase PE exercise to daily alternating 30 and 45 minute videos. Only change to meal plan is to add a serving of fruit at 2pm if hungry. Pt has new diagnosis of JOYCE and is being referred to pulmonology for treatment. We are checking again to schedule Cardiac stress test and ECHO - will need full clearance from her customer counter representative at her followup in January. H pylori retest on 01/18 with S appt Followup with Kin being scheduled Next appt with me in 3 weeks. Patient is morbidly obese and is not considered stable at this time. I spent 30 minutes in total with patient reviewing/updating records, examining the patient and counseling the patient on weight management as detailed above. (2) Sleep apnea: Code(s): G47.30 - Sleep apnea, unspecified (3) Abnormal ECG: Code(s): R94.31 - Abnormal electrocardiogram [ECG] [EKG] (4) Wheelchair dependence: Code(s): Z99.3 - Dependence on wheelchair Coding Level of Care Code Est Pt Level 4 (33111) Diagnoses Morbid obesity E66.01 Sleep apnea G47.30 Abnormal ECG R94.31 Wheelchair dependence Z99.3
== END 2023-01-07 09:40 | disposition home or self-care (01) ==
PROVIDERS: PCP Student in an Organized Health Care Education/Training Program; Visit Provider Physician Assistant
DX: E66.01 Morbid (severe) obesity due to excess calories (principal); G47.30 Sleep apnea, unspecified; R94.31 Abnormal electrocardiogram [ECG] [EKG]; Z99.3 Dependence on wheelchair
CPT/HCPCS: 99214

== ENCOUNTER → 2023-01-07 08:46 | Outpatient (BNVA) | payer OTHER, SELFPAY | PROVIDERS: PCP Student in an Organized Health Care Education/Training Program; Visit Provider Physician Assistant | DX: E66.01 Morbid (severe) obesity due to excess calories (principal); Z68.43 Body mass index [BMI] 50.0-59.9, adult; G47.30 Sleep apnea, unspecified; R94.31 Abnormal electrocardiogram [ECG] [EKG]; Z99.3 Dependence on wheelchair | CPT/HCPCS: 99212 ==

== ENCOUNTER 2023-02-02 09:45 | Outpatient (AMB) | payer OTHER, SELFPAY ==
--- NOTE | 2023-02-02 09:37 | MHC.AMNUTRGE ---
Intake Intake Visit Reasons: TV F/U SWL Allergies No Known Allergies Allergy (Verified 01/07/23 08:48) HPI Nutrition Presentation Reason for consult elevated BMI Diet Assmnt Details tea or coffee 9am - 30 gram shake - Using Ensure Talha 12 pm - 30 gram shake - premier 3? pm- yogurt or 2 eggs 6 pm- dinner of 6 oz fish or chicekn with veg Hydration: over 64oz water per day Wheelchair exercises 30 minutes 5x per week - has increased from last appt SW[facility] online classes : completed reviewed, pt appears to understand Her goal is to lose enough weight to have BMI <40 for bilateral knee replacements. This would be a weight of under 245 lbs. Patient speaks Slovenian and Swahili and janine helps her with interpretation. She has been in a wheelchair for 2 years -exacerbating event was being in a residential. She can stand and pivot with support on either side. She lives with her daughter, Carloyn - who was part of our SWL program.?Daughter does her cooking and grocery shopping. Dietary counseling reduction Diagnosis Nutrition problem #1 overweight/obesity As related to (etiology) #1 excess energy intake and physical inactivity As evidenced by (sign/symptom) #1 high BMI Monitoring/Goals Nutrition problem monitoring total energy intake, level of knowledge/skill, total PRO intake, total CHO intake and weight Outcome progress progressing Learning/Education Readiness to learn good Stages of change action Educational materials provided Yes Most Recent Diabetes Results: Cholesterol 160 mg/dL 11/29/22 HDL Cholesterol 47 mg/dL 11/29/22 Triglycerides 54 mg/dL 11/29/22 Creatinine 1.03 mg/dL (0.5-1.4) 11/29/22 Blood Urea Nitrogen 38 mg/dL (9-16) H 11/29/22 Sodium 145 mmol/L (135-145) 11/29/22 Potassium 3.7 mmol/L (3.3-5.1) 11/29/22 Chloride 107 mmol/L (96-108) 11/29/22 Carbon Dioxide 23 mmol/L (22-29) 11/29/22 Calcium 9.0 mg/dL (8.4-10.2) 11/29/22 AST 12 U/L (5-31) 11/29/22 ALT 10 U/L (0-31) 11/29/22 Total Protein 8.1 g/dL (6.5-8.0) H 11/29/22 Albumin 4.1 g/dL (3.5-5.0) 11/29/22 PFSH Surgical History Hx of parathyroidectomy Family History Mother No problems noted. Father No problems noted. Brother Hypertension Daughter Hypertension Social History Alcohol intake: never Patient Tobacco Use Status: Never used Tobacco Assessment & Plan Assessment & Plan (1) Morbid obesity: Code(s): E66.01 - Morbid (severe) obesity due to excess calories Patient Instructions: Pt states she has been consistently following her plan, no deviations. Its difficult to assess her understanding. Pt has appt with Charley tomorrow which will be helpful as we will be able to obtain a weight . She reports she understood everything covered in the classes. no questions. Pt is cleared. Will need support post op Telehealth Telehealth Location of provider rendering services: practice address Location of patient: address on file Patient Identification confirmed using: Name, : Yes Telehealth method: voice only Patient verbally consented to treatment: Yes Patient verbally consented to billing insurance company: Yes Patient informed of any privacy concerns related to visit: Yes Minutes spent on Phone/Video with Pt.: 20 Coding Level of Care Code Nutr Indiv Subseq ([id number]) Diagnoses Morbid obesity E66.01 Time Spent (min) 20
== END 2023-02-02 09:55 | disposition home or self-care (01) ==
LOC: HO.HBS 09:45
PROVIDERS: PCP Student in an Organized Health Care Education/Training Program; Visit Provider Dietitian, Registered
DX: E66.01 Morbid (severe) obesity due to excess calories (principal)

== ENCOUNTER → 2023-02-02 09:45 | Outpatient (BNVA) | payer OTHER, SELFPAY | PROVIDERS: PCP Student in an Organized Health Care Education/Training Program; Visit Provider Dietitian, Registered | DX: E66.01 Morbid (severe) obesity due to excess calories (principal); Z71.3 Dietary counseling and surveillance | CPT/HCPCS: 97803 ==

== ENCOUNTER 2023-02-03 13:20 | Outpatient (AMB) | payer OTHER, SELFPAY ==
--- NOTE | 2023-02-03 12:42 | MHC.OFFVISWM ---
Intake VS Expanded 02/03/23 13:38 BP 132/89 Blood Pressure Location Rt brachial Blood Pressure Position Sitting Pulse 72 Pulse Source Pulse Oximeter Temp 97.0 F Temperature Source Tympanic Pulse Oximetry 95 Oxygen Delivery Method Room Air Height 5 ft 6 in Weight 303 lb 3.2 oz BMI 48.9 Intake Visit Reasons: (OV) F/U SWL Allergies No Known Allergies Allergy (Verified 02/03/23 13:42) HPI HPI Comments History of Present Illness Details [facility] follow up, [employer] weight of 324.1 lbs, weight today 303.2, 21.9 lbs or 6.8%. Exercise - PE chair exercise every day sometimes 30 - sometimes 45 minutes. PT at [facility] 2d/week - still unable to stand on her own. Meal plan - tea or coffee 8am -shake 12pm - shake 3pm - 2 eggs with 1 fruit 6pm - (9 oz) vegetables and (6 oz) meat or fish (measures with scale) Pre op work up completed as follows: [facility] classes - 12/07 BH appts -cleared RD appts - follow up on 12/22 - now cleared H pylori - POSITIVE, finished treatment on on 12/30 - ready for retest after 01/13. Retest today Labs - done CXR -IMPRESSION: 1.? Bilateral low lung volumes. 2.? Slight accentuation of the pulmonary vasculature. 3.? Bibasilar atelectasis. 4.? Mildly prominent cardiomediastinal silhouette and widening of the mediastinum. ECG - Normal sinus rhythm Left anterior fascicular block with 1st degree A-V block Minimal voltage criteria for LVH, may be normal variant ( Metaline product ) Cannot rule out Anterior infarct , age undetermined Abnormal ECG No previous ECGs available Sees [facility] - ECHO and stress test ordered on 12/10. Saw her medical records supervisor - who agrees with bariatric surgery and has follow up on Feb 01. ECHO/Stress tests on 03/14. ULS and UGI - 12/20 (rescheduled to 01/18)and 01/31- missed appts. -- both rescheduled now to 02/23 SS ---- 12/20, + JOYCE - patient has been referred to Pulmonology. Appt on 02/18 [facility] Surgical History Hx of parathyroidectomy Family History Mother No problems noted. Father No problems noted. Brother Hypertension Daughter Hypertension Social History Alcohol intake: never Patient Tobacco Use Status: Never used Tobacco Assessment & Plan Assessment & Plan (1) Morbid obesity: Code(s): E66.01 - Morbid (severe) obesity due to excess calories Plan: Good progress with 21.9 lbs or 6.8% TBWL. Nochanges made to meal plan. Exercise - contineu PE - altrnating 30 and 45 minutes videos. Pre op work up in progress. H pylori retest today ULS and UGI on 02/23 Pulmonology - 02/18 Cardiac testing on 03/04. Next appt with me in 3-4 weeks. Patient is morbidly obese and is not considered stable at this time. I spent 30 minutes in total with patient reviewing/updating records, examining the patient and counseling the patient on weight management as detailed above. (2) Abnormal ECG: Code(s): R94.31 - Abnormal electrocardiogram [ECG] [EKG] Plan: Has cardiac testing scheduled on Mar 14 (3) Sleep apnea: Code(s): G47.30 - Sleep apnea, unspecified Plan: pulmonology appt 02/18 for CPAP (4) H. pylori infection: Code(s): A04.8 - Other specified bacterial intestinal infections Plan: Retest today Coding Level of Care Code Est Pt Level 4 (08913) Diagnoses Morbid obesity E66.01 Abnormal ECG R94.31 Sleep apnea G47.30 H. pylori infection A04.8
[2023-02-03 13:38] VITALS: BP 132/89; PULSE 72; TEMP 36.1; O2SAT 95; BMI 48.9
== END 2023-02-03 14:02 | disposition home or self-care (01) ==
PROVIDERS: PCP Student in an Organized Health Care Education/Training Program; Visit Provider Physician Assistant
DX: E66.01 Morbid (severe) obesity due to excess calories (principal); R94.31 Abnormal electrocardiogram [ECG] [EKG]; G47.30 Sleep apnea, unspecified; A04.8 Other specified bacterial intestinal infections
CPT/HCPCS: 99214

== ENCOUNTER → 2023-02-03 13:20 | Outpatient (BNVA) | payer OTHER, SELFPAY | PROVIDERS: PCP Student in an Organized Health Care Education/Training Program; Visit Provider Physician Assistant | DX: E66.01 Morbid (severe) obesity due to excess calories (principal); A04.8 Other specified bacterial intestinal infections; G47.30 Sleep apnea, unspecified; R94.31 Abnormal electrocardiogram [ECG] [EKG]; Z68.42 Body mass index [BMI] 45.0-49.9, adult; Z99.3 Dependence on wheelchair | CPT/HCPCS: 99212 ==

== ENCOUNTER → 2023-02-11 08:54 | Outpatient (REF) | payer OTHER, SELFPAY ==
--- NOTE | ~2023-02-11 | NM_ITS ---
Lexiscan Myocardial perfusion study Indication: Obesity, preoperative cardiac evaluation Technique: The patient was brought in for a Lexiscan perfusion study on 02/11/2023 and was injected 0.4 mg of Lexiscan intravenously. Within a minute of this injection 45 mCi of sestamibi was given intravenously. Images were obtained using the SPECT gamma camera interlaced with the gating device. Images were obtained in supine position. Resting perfusion study was performed on 02/18/2023. Patient was administered 45 mCi of sestamibi intravenously at rest. Images were then obtained in supine position. Images were processed with the software and compared side to side in short axis, horizontal long axis and vertical long axis views. Total DLP 133mGy-cm. Findings: Raw acquisition reviewed. The stress perfusion study showed no significant perfusion defects. Both uncorrected as well as CT attenuation corrected images were reviewed. The gated study shows normal LV systolic function with calculated LVEF of 55%. LV cavity is normal in size. The gated study shows normal wall thickening and contraction of segments. Resting study shows no significant perfusion defects. Gating at rest reveals normal wall motion with ejection fraction at 58%. The findings are consistent with no clear reversible or fixed perfusion defects. NM/NM cardiolite stress test Impression: 1. Myocardial perfusion imaging study shows likely normal myocardial perfusion. 2. Gated LVEF is 55% during stress and 58% during rest. 3. Transient ischemic dilatation not present. EKG component of the test reported separately.
--- NOTE | 2023-02-11 09:04 | CA_ITS ---
Acquisition Time: 2023-02-11 09:56:59 Total Exercise Time: 00:02:00 Test Indications: Abnormal ECG Medications: AMLODIPINE ASA ATORVASTATIN FUROSEMIDE OMEPRAZOLE Protocol: LEXISCAN Max HR: 102 BPM 70% of Pred: 145 BPM Max BP: 112/068 mmHG Max Work Load: 1.0 METS Pharmacological stress test with lexiscan injection while sitting and marching in place, without anginal symptoms, with isolated PAC, with normotensive response to injection, with nondiagnositic EKGs. Nuclear images pending. Test reviewed with Dr. Camilo. Referred By: Charley Hale Overread By: Krystin Velez
== END ==
LOC: HO.CARD 08:54
PROVIDERS: PCP Student in an Organized Health Care Education/Training Program; Visit Provider Physician Assistant
DX: R94.31 Abnormal electrocardiogram [ECG] [EKG] (principal); I10 Essential (primary) hypertension; E78.5 Hyperlipidemia, unspecified; Z99.3 Dependence on wheelchair
CPT/HCPCS: 78452; 93017; A9500; J0280; J2785

== ENCOUNTER → 2023-02-11 09:04 | Outpatient (BNV) | payer OTHER, SELFPAY | PROVIDERS: PCP Student in an Organized Health Care Education/Training Program; Visit Provider Nurse Practitioner | DX: R94.31 Abnormal electrocardiogram [ECG] [EKG] (principal); I10 Essential (primary) hypertension | CPT/HCPCS: 78452; 93016; 93018 ==

== ENCOUNTER 2023-02-24 13:29 | Outpatient (AMB) | payer OTHER, SELFPAY ==
[2023-02-24 13:31] VITALS: BP 126/77; PULSE 65; O2SAT 93; BMI 47.6
--- NOTE | 2023-02-24 13:31 | MHC.OFFVIS ---
Intake Vital Signs 02/24/23 13:31 Height 5 ft 6 in Weight 295 lb BMI 47.6 BP 126/77 Blood Pressure Location Rt brachial Position Sitting Pulse 65 Pulse Source Doppler Pulse Oximetry (%) 93 Oxygen Delivery Method Room Air Intake Visit Reasons: Obstructive sleep apnea Allergies lisinopril Allergy (Severe, Uncoded 02/24/23 13:34) Cough HPI Obstructive sleep apnea HPI Details 77-year-old lady with underlying obesity, now under bariatric service care with recently diagnosed mild obstructive sleep apnea with AHI of 13 referred for further follow-up. Patient does complain of unrestful sleep and some daytime sleepiness. She is interested in trying CPAP therapy. PFSH Surgical History Hx of parathyroidectomy Family History Mother No problems noted. Father No problems noted. Brother Hypertension Daughter Hypertension Social History Alcohol intake: never Patient Tobacco Use Status: Never used Tobacco Review of Systems Const Reports daytime sleepiness, Denies excessive sweating, Denies fatigue, Denies fever(s), Reports lethargy, Denies malaise, Denies night sweats, Reports snoring and Denies weight loss Eyes Denies blurry vision and Denies itchy eyes ENT Denies nasal congestion, Denies post nasal drip, Denies sinus pain, Denies sinus pressure and Denies other ( Thrush) Card Denies chest pain, Denies pedal edema, Denies dyspnea, Denies orthopnea and Denies paroxysmal nocturnal dyspnea Resp Denies cough, Denies hemoptysis, Denies excessive phlegm production, Denies dyspnea, Reports snoring and Denies wheezing GI Denies abdominal pain and Denies heartburn Musc Denies myalgias, Denies arthralgias and Denies joint swelling Skin/Breast Denies rash Neuro Denies memory loss and Denies seizure-like activity Psych Denies abnormal sleep pattern, Denies anxiety and Denies memory loss Endo Denies excessive sweating, Denies fatigue and Denies heat intolerance Deondre/Lymph Denies easy bruising Aller/Immun Denies itchy eyes, Denies seasonal rhinorrhea and Denies wheezing Physical Exam Vital Signs: Last Vital Signs Pulse 65 02/24/23 13:31 BP 126/77 02/24/23 13:31 Pulse Ox 93 02/24/23 13:31 Oxygen Delivery Method Room Air 02/24/23 13:31 BMI result Body Mass Index 47.6 Const General: no acute distress and alert Nutritional Appearance: obese Orientation/consciousness: Other orientation findings ( oriented) HEENT Head: Yes atraumatic Eyes General: appearance normal, both eyes and all related structures Sclerae: sclerae normal EOM: EOMs intact bilaterally Neck Neck: Yes supple Lymphatic: no lymphadenopathy noted Resp Effort & Inspection: normal respiratory effort and no use of accessory muscles Auscultation: clear to auscultation bilaterally Cardio Rate: regular rate Rhythm: regular rhythm Heart sounds: no gallops, no murmurs and no rubs Skin General skin exam: other ( warm) Extrem General: No clubbing, No cyanosis and No edema Assessment & Plan Assessment & Plan (1) JOYCE (obstructive sleep apnea): Code(s): G47.33 - Obstructive sleep apnea (adult) (pediatric) Plan: Underlying sleep apnea with AHI of 13. Will start on APAP of 6-16 cm of water. Coding Level of Care Code New Pt Level 3 (10570) Diagnoses JOYCE (obstructive sleep apnea) G47.33
== END 2023-02-24 13:49 | disposition home or self-care (01) ==
PROVIDERS: PCP Student in an Organized Health Care Education/Training Program; Referring Provider Physician Assistant; Visit Provider Internal Medicine Pulmonary Disease
DX: G47.33 Obstructive sleep apnea (adult) (pediatric) (principal)
CPT/HCPCS: 99203

== ENCOUNTER → 2023-02-24 13:29 | Outpatient (BNVA) | payer OTHER, SELFPAY | PROVIDERS: PCP Student in an Organized Health Care Education/Training Program; Referring Provider Physician Assistant; Visit Provider Internal Medicine Pulmonary Disease ==

== ENCOUNTER 2023-02-28 08:05 | Outpatient (REF) | payer OTHER, SELFPAY ==
--- NOTE | ~2023-02-28 | FL_ITS ---
EXAMINATION: XR FLUOROSCOPY UPPER GI WITH AIR CLINICAL INFORMATION: Preop evaluation for bariatric surgery COMPARISON: None TECHNIQUE: Fluoroscopic air contrast upper GI examination was performed utilizing standard techniques with thin and thick barium and effervescent granules. Numerous spot images were obtained. FINDINGS: Dual and single contrast images of the esophagus demonstrate a patulous somewhat tortuous esophagus. No definite mucosal abnormality. No evidence of stricture, mass, or ulcerations identified. Primary esophageal peristalsis was normal, followed by mild non-propulsive tertiary contractions, consistent with esophageal dysmotility. The lower esophageal sphincter was delayed in opening notably mildly narrowed, possibly on the basis of mild achalasia. No heaped up margins to suggest malignant stricture. A benign stricture is possible. A small to moderate sized hiatal hernia identified. Gastroesophageal reflux is seen up to the thoracic inlet. Dual contrast and single contrast images of the stomach demonstrated somewhat thickened folds of the gastric fundus, which may be on the basis of underdistention. Cannot exclude gastritis or possibly neoplasm. Contrast freely passed into the gastric antrum and duodenal bulb without delay. Single and air-contrast images of the duodenal bulb demonstrate no abnormality. The duodenal sweep has a normal appearance, course, and mucosal fold appearance. The imaged proximal jejunum has a normal fold pattern and caliber. The aorta is uncoiled and tortuous as well as calcified. The heart appears enlarged. The pulmonary arteries appear prominent. There are surgical clips in the left neck at the level of the thyroid gland. FLUOROSCOPY TIME: 5 minutes 22 seconds Number of Spot Images: 13 Number of cine: 6 5921 uGy-m2 (microgray-meter squared) FL/FL upper GI w air IMPRESSION: 1. Small to moderate-sized hiatal hernia. 2. Patulous and somewhat tortuous esophagus without definite stricture or mass. 3. Gastroesophageal reflux 4. Marked esophageal dysmotility. 5. Delayed opening and somewhat narrowed appearance of the lower esophageal shrink her suggesting mild achalasia versus a benign distal esophageal stricture. No heaped up margins seen to suggest esophageal malignancy. 6. Thickened appearing folds of the gastric fundus are felt to most likely represent underdistention due to inability of the patient to retain the effervescent granule gas. Given the appearance, gastritis, or simply even gastric neoplasm is not excluded. Recommend correlating with endoscopy.
--- NOTE | ~2023-02-28 | US_ITS ---
EXAMINATION: US COMPLETE ABDOMEN WITH LIVER ELASTOGRAPHY CLINICAL INFORMATION: Morbid obesity. COMPARISON: None available. TECHNIQUE: Real-time imaging of the abdominal viscera. Noninvasive ultrasound liver fibrosis assessment is performed using Maximiliano ElastPQ point quantification shear wave elastography (2D-SWE) with a C5-2 MHz transducer. Multiple elastography samples are obtained. FINDINGS: PANCREAS: Largely obscured by overlapping bowel gas. ABDOMINAL AORTA: The visualized proximal segment is normal in caliber. The mid and distal segments are obscured by overlapping bowel gas. INFERIOR VENA CAVA: Visualized portions are normal. LIVER: The liver demonstrates normal size, a lobulated contour and normal echogenicity. No focal solid lesion or intrahepatic biliary duct dilatation. Within the right hepatic lobe adjacent to the gallbladder, a 1.3 cm mildly complex cyst is seen with fine septation. This shows no mural nodularity or associated color Doppler flow. The right lobe measures 14.7 cm in length. The left lobe measures 13.9 cm in length. Portal flow is towards the liver (hepatopetal). Shear wave liver elastography median stiffness is 1.92 m/s (reference: normal median stiffness is 1.3 m/s or less). IQR/median stiffness to assess sampling precision is 0.15 (reference: good quality data set is IQR/median stiffness of 0.15 or less). GALLBLADDER: Limited. The gallbladder is physiologically distended without evidence of stones, sludge, polyps, wall thickening or pericholecystic fluid. COMMON BILE DUCT: Normal in caliber measuring 0.5 cm in diameter. RIGHT KIDNEY: Normal. No hydronephrosis. No renal calculi or focal parenchymal lesions. The kidney measures 8.4 cm in maximum dimension. LEFT KIDNEY: Normal. No hydronephrosis. No renal calculi or focal parenchymal lesions. The kidney measures 9.5 cm in maximum dimension. SPLEEN: Normal. The spleen measures 8.3 cm in maximum dimension. FREE FLUID: None. US/US abdomen comp w elastography IMPRESSION: 1. A mildly complex anechoic cyst with fine septation is seen within the right hepatic lobe. As a precaution, repeat abdominal ultrasound examination is recommended in 6 months to ensure stability of this finding. 2. Liver elastography: Measurements are suggestive of compensated advanced chronic liver disease but need further test for confirmation. 3. Technically limited ultrasound examination, in particular of the pancreas, abdominal great vessels and gallbladder. REFERENCE: Society of Radiologists in Ultrasound Liver Stiffness Thresholds (2020): LIVER STIFFNESS THRESHOLDS: *Liver Stiffness equal or less than 1.3 m/s: High probability of being normal. *Liver Stiffness less than 1.7 m/s: In the absence of other known clinical signs, rules out compensated advanced chronic liver disease. *Liver Stiffness 1.7-2.1 m/s: Suggestive of compensated advanced chronic liver disease but need further test for confirmation. *Liver Stiffness over 2.1 m/s: Rules in compensated advanced chronic liver disease. *Liver Stiffness over 2.4 m/s: Suggestive of clinically significant portal hypertension. QUALITY OF DATA SET: *IQR/Median value equal or less than 0.15 implies a quality data set. *IQR/Median value over 0.15 implies a poor quality data set. SIGNIFICANT CHANGE FROM PRIOR EXAM: Significant change if liver stiffness measurement is 10% or greater from prior exam. OTHER CONSIDERATIONS: The stage of liver fibrosis may be overestimated in the setting of acute hepatitis, liver inflammation, elevated liver function tests, hepatic vascular congestion, obstructive cholestasis, non-fasting state, and infiltrative diseases such as amyloidosis and lymphoma. In some patients with NAFLD, the liver stiffness thresholds for compensated advanced chronic liver disease may be lower. In causes other than viral hepatitis and NAFLD, liver stiffness thresholds are not well established.
== END 2023-02-28 08:06 | disposition home or self-care (01) ==
LOC: HO.US 08:05
PROVIDERS: PCP Student in an Organized Health Care Education/Training Program; Visit Provider Physician Assistant
DX: Z01.818 Encounter for other preprocedural examination (principal); E66.01 Morbid (severe) obesity due to excess calories; R40.0 Somnolence; I10 Essential (primary) hypertension; E83.51 Hypocalcemia; M81.0 Age-related osteoporosis without current pathological fracture; E78.5 Hyperlipidemia, unspecified
CPT/HCPCS: 74246; 76705; 76981

== ENCOUNTER → 2023-02-28 08:07 | Outpatient (BNV) | payer OTHER, SELFPAY | PROVIDERS: PCP Student in an Organized Health Care Education/Training Program; Visit Provider Radiology Diagnostic Radiology | DX: Z01.818 Encounter for other preprocedural examination (principal); E66.01 Morbid (severe) obesity due to excess calories | CPT/HCPCS: 74246 ==

== ENCOUNTER 2023-03-04 09:23 | Outpatient (AMB) | payer OTHER, SELFPAY ==
--- NOTE | 2023-03-04 09:16 | A.OFFVIS_ITS ---
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 Retest today La bs - done CXR -IMP RESSION: 1.? Bila teral low lung vol umes.2.? Slight ac centuation of the pulmonary vasculat ure.3.? Bibasilar atelectasis.4.? Mi ldly prominent car diomediastinal mariela houette and wideni ng of the mediasti num. ECG - Normal sinus rhythm Left anterior fascicula r block with 1st d egree A-V block Mi nimal voltage crit eria for LVH, may be normal variant ( [place] product ) Cannot rule out Anterior infarct , age undetermined Abnormal ECG No pr evious ECGs availa ble Sees [facility] Cardiology - ECHO and stress test ordered on . Saw her cardi ologist - who agre es with bariatric surgery and has fo llow up on Feb 01 . ECHO/Stress test s on 03/14. Nucle ar stress test - P rotocol: LEXISCAN Max HR: 10 2 BPM 70% of Pre d: 145 BPM Max BP: 112/068 mmHG Max Work Load: 1.0 MET S Pharmacologica l stress test with lexiscan injectio n while sitting an d marching in prem ce, without angina l symptoms, with i solated PAC, with normotensive resp onse to injection, with nondiagnosit ic EKGs. Nuclear i mages pending. Shahla t reviewed with D r. Ton. ECHO appt - was cancel led due to insuran ce issues - will r escheule ULS an d UGI - 12/20 (resc heduled to 01/18)an d 01/31- missed chandu ts. -- both resche duled ULS - R 14 .7 cms and L 13.9 cms1. A mildly com plex anechoic cyst with fine septati on is seen within the right hepatic lobe. As a precaut ion, repeat abdomi nal ultrasound exa mination is recomm ended in 6 months to ensure stabilit y of this finding. 2. Liver elast ography: Measurem ents are suggestiv e of compensated a dvanced chronic li rehana disease but ne ed further test fo r confirmation. 3. Technically li mited ultrasound e xamination, in par ticular of the curry creas, abdominal g reat vessels and g allbladder. UGI - IMPRESSION: 1. Small to moderate- sized hiatal herni a. 2. Patulous an d somewhat tortuou s esophagus withou t definite strictu re or mass. 3. Ga stroesophageal ref lux 4. Marked eso phageal dysmotilit y. 5. Delayed ope allen and somewhat narrowed appearanc e of the lower eso phageal shrink her suggesting mild a chalasia versus a benign distal esop hageal stricture. No heaped up love ns seen to suggest esophageal malign ian. 6. Thickene d appearing folds of the gastric fun dus are felt to mo st likely represen t underdistention due to inability o f the patient to r etain the efferves cent granule gas. Given the appearan ce, gastritis, or simply even gastri c neoplasm is not excluded. Recommen d correlating with endoscopy. RESULT S discussed with Althea r R, no need for E GD, patient is sti ll candidate for L SG SS ---- 12/20, + JOYCE - patient moseley s been referred to Pulmonology. Appt on 02/24 - now shobha davis for APAP luis ray, settings of 6-16 cms. PFSH Surgical History Hx of parathyroidectomy Family History Mother No problems noted. Father No problems noted. Brother Hypertension Daughter Hypertension Social History Alcohol intake: never Patient Tobacco Use Status: Never used Tobacco Physical Exam Vital Signs: Last Vital Signs Temp 96.7 F L 03/04/23 09:30 Pulse 69 03/04/23 09:30 BP 178/85 H 03/04/23 09:30 Pulse Ox 94 03/04/23 09:30 Oxygen Delivery Method Room Air 03/04/23 09:30 BMI result Body Mass Index 50.1 Assessment & Plan Assessment & Plan (1) Morbid obesity: Code(s): E66.01 - Morbid (severe) obesity due to excess calories Plan: Patient must be weighed on stretcher from ED for accurate weight. Our wheelchair scale will be calibrated again today. Excellent weight loss. No change in meal plan today, reminded patient and her daughter to increase PE exericse to 5 d/ week x 30 minutes. Pt had h pylori retest today and will still needs to have ECHO rescheduled, Afsaneh is working on this. Next appt with me in 3 weeks. Patient is morbidly obese and is not considered stable at this time. I spent 30 minutes in total with patient reviewing/updating records, examining the patient and counseling the patient on weight management as detailed above. (2) HTN (hypertension), benign: Code(s): I10 - Essential (primary) hypertension (3) Hyperlipidemia: Code(s): E78.5 - Hyperlipidemia, unspecified (4) Abnormal ECG: Code(s): R94.31 - Abnormal electrocardiogram [ECG] [EKG] (5) Sleep apnea: Code(s): G47.30 - Sleep apnea, unspecified (6) H. pylori infection: Code(s): A04.8 - Other specified bacterial intestinal infections (7) JOYCE (obstructive sleep apnea): Code(s): G47.33 - Obstructive sleep apnea (adult) (pediatric) Coding Level of Care Code Est Pt Level 4 (52915) Diagnoses Morbid obesity E66.01 HTN (hypertension), benign I10 Hyperlipidemia E78.5 Abnormal ECG R94.31 Sleep apnea G47.30 H. pylori infection A04.8 JOYCE (obstructive sleep apnea) G47.33
[2023-03-04 09:30] VITALS: BP 178/85; PULSE 69; TEMP 35.9; O2SAT 94; BMI 42.1
== END 2023-03-04 13:21 | disposition home or self-care (01) ==
LOC: HO.HBS 09:23
PROVIDERS: PCP Student in an Organized Health Care Education/Training Program; Visit Provider Physician Assistant
DX: E66.01 Morbid (severe) obesity due to excess calories (principal); I10 Essential (primary) hypertension; E78.5 Hyperlipidemia, unspecified; R94.31 Abnormal electrocardiogram [ECG] [EKG]; G47.30 Sleep apnea, unspecified; A04.8 Other specified bacterial intestinal infections; G47.33 Obstructive sleep apnea (adult) (pediatric)
CPT/HCPCS: 99214

== ENCOUNTER → 2023-03-04 09:23 | Outpatient (BNVA) | payer OTHER, SELFPAY | PROVIDERS: PCP Student in an Organized Health Care Education/Training Program; Visit Provider Physician Assistant | DX: E66.01 Morbid (severe) obesity due to excess calories (principal); I10 Essential (primary) hypertension; E78.5 Hyperlipidemia, unspecified; R94.31 Abnormal electrocardiogram [ECG] [EKG]; G47.30 Sleep apnea, unspecified; A04.8 Other specified bacterial intestinal infections; G47.33 Obstructive sleep apnea (adult) (pediatric); Z68.41 Body mass index [BMI] 40.0-44.9, adult | CPT/HCPCS: 99212 ==

== ENCOUNTER 2023-03-04 09:57 | Outpatient (REF) | payer OTHER, SELFPAY ==
[2023-03-09 15:23] LABS: H Pylori Breath Test Negative (Negative)
== END 2023-03-04 09:58 | disposition home or self-care (01) ==
LOC: HO.LNP 09:57
PROVIDERS: Visit Provider Physician Assistant
DX: Z01.818 Encounter for other preprocedural examination (principal)
CPT/HCPCS: 83013

== ENCOUNTER 2023-04-20 09:19 | Outpatient (AMB) | payer OTHER, SELFPAY ==
--- NOTE | 2023-04-20 09:24 | MHC.OFFVISWM ---
Intake VS Expanded 04/20/23 09:32 BP 150/72 H Blood Pressure Location Rt brachial Blood Pressure Position Sitting Pulse 80 Pulse Source Pulse Oximeter Temp 97.6 F Temperature Source Temporal Artery Scan Pulse Oximetry 96 Oxygen Delivery Method Room Air Height 5 ft 6 in Weight 296 lb 6.4 oz BMI 47.8 Intake Visit Reasons: (OV) F/U SWL Allergies lisinopril Allergy (Severe, Uncoded 03/04/23 09:38) Cough Medication List - Last Reconciled 04/20/23 by VARINDER HeckC amlodipine 10 mg PO QAM aspirin 81 mg PO QAM atorvastatin 10 mg PO QAM calcium citrate-vitamin D3 315 mg-5 mcg (200 unit) 0 tabs PO food supplemt, lactose-reduced (Ensure oral liquid) 1 ea PO TID furosemide 0 mg PO BID ibuprofen 600 mg PO TID romosozumab-aqqg mg subcut tramadol 50 mg PO Q12H PRN HPI HPI Comments History of Present Illness Details 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 I can on ly assume that daniel vela's weight were incorrect previou sly in our office and TBWL is 8.5%. Meal plan - [place] kfast - black tea and 8am Premier R TD shake 12pm - sa me shake 3pm - yog urt or 2 eggs 5:3 0 pm - vegetables and chicken or bee f or fish, one se rving fruit EXerc ise - Dilan Capps sitting videos 35 minutes 4 d/ week . Pre op work up completed as foll ows: SWL classes - 12/07 appts -c cherrie RD ap pts - follow up o n 12/22 - now clear ed H pylori - POSI TIVE, retest negat gayathri on 03/04 Labs - done CXR -IMPRESS ION: 1.? Bilatera l low lung volumes .2.? Slight accent uation of the pulm onary vasculature. 3.? Bibasilar atel ectasis.4.? Mildly prominent cardiom ediastinal silhoue tte and widening o f the mediastinum. ECG - Normal sinu s rhythm Left ante rior fascicular bl ockwith 1st degree A-V block Minimal voltage criteria for LVH, may be no rmal variant ( [place] cel[place] product )Edward ot rule out Anteri or infarct , age u ndetermined Abnorm al ECG No previous ECGs available S s [facility] Cardiology - ECH O and stress test ordered on 12/10. S aw her cardiologis t - who agrees wit h bariatric surger y and has follow u p on Feb 01 ECHO/ Stress tests on . Nuclear stre ss test - Protocol : LEXISCAN Max H R: 10 2 BPM 70% of Pred: 145 BPMM ax BP:112/068 mmHG Max Work Load: 1. 0 METS Pharmacol ogical stress test with lexiscan in jection while sitt ing and marching i n place, without a nginal symptoms, w ith isolated PAC, with normotensive response to inject ion, with nondiagn ositic EKGs. Nucle ar images pending. Test reviewed wit h Dr. Camilo. E MOODY - done at her cardioloigist offi ce on Apr 18, re sults pending. Of fice # is - , [place] [facility] UL S and UGI - 12/20 ( rescheduled to 12/31 9)and 01/31- missed appts. -- both re scheduled ULS - R 14.7 cms and L 13 .9 cms1. A mildly complex anechoic c yst with fine sept ation is seen with in the right hepat ic lobe. As a prec aut ion, repeat ab dominal ultrasound examination is re commended in 6 tue to ensure stab ility of this find ing. 2. Liver elastography: Hue surements are sugg estive of compensa amari advanced chron ic liver disease b ut need further te st for confirmatio n. 3. Technical ly limited ultraso und examination, i n particular of e pancreas, abdomi nal great vessels and gallbladder. UGI - IMPRESSION: 1. Small to modera te-sized hiatal he rnia. 2. Patulous and somewhat tort uous esophagus wit hout definite stri cture or mass. 3. Gastroesophageal ref lux 4. Marked esophageal dysmot ility. 5. Delayed opening and somew hat narrowed appe arance of the lowe r esophageal shrin k her suggesting m ild achalasia vers us a benign distal esophageal strictu re. No heaped up margins seen to trevizo ggest esophageal m alignancy. 6. Thi ckened appearing f olds of the gastri c fundus are felt to most likely rep resent underdisten tion due to inabil ity o the patient to retain the effe rvescent granule g as. Given the appe arance, gastritis, or simply even gas tric neoplasm is n ot excluded. Recom mend correlating w ith endoscopy. RES ULTS discussed wit cinda Rendon, no need fo r EGD, patient is still candidate fo r LSG SS - 12/20, + JOYCE - patient moseley s been referred to Pulmonology. Appt on 02/24 - CPAP settings of 6-16 c ms. MALDONDAO Surgical History Hx of parathyroidectomy Family History Mother No problems noted. Father No problems noted. Brother Hypertension Daughter Hypertension Social History Alcohol intake: never Patient Tobacco Use Status: Never used Tobacco Physical Exam Vital Signs: Last Vital Signs Temp 97.6 F 04/20/23 09:32 Pulse 80 04/20/23 09:32 BP 150/72 H 04/20/23 09:32 Pulse Ox 96 04/20/23 09:32 Oxygen Delivery Method Room Air 04/20/23 09:32 BMI result Body Mass Index 47.8 Assessment & Plan Assessment & Plan (1) Morbid obesity: Code(s): E66.01 - Morbid (severe) obesity due to excess calories Plan: 77 yo woman who is wheelchair dependent due to deconditioning and morbid obesity. , can not stand. Uses a jumana lift at home for transport - no scale attached. Today she was weighed in ED and I belkis this is an accurate weight. has 8.5% TBWL. 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 Meal plan changes: switch to Premeir powder with water or UAM 3pm - Celebrate or Zone bar 6pm - dinner in 12 forks each protein and vegetable Exercise -increase to at least 5d/week Dilan Capps sitting videos. Once ECHO received and pt has lost antoher 5 lbs for 10% TBWL, will schedule her with Dr Rendon for surgical consult. Next appt with me in office 3 weeks. Patient is morbidly obese and is not considered stable at this time. I spent 30 minutes in total with patient reviewing/updating records, examining the patient and counseling the patient on weight management as detailed above. (2) JOYCE (obstructive sleep apnea): Code(s): G47.33 - Obstructive sleep apnea (adult) (pediatric) Plan: Now has CPAP machine to use nightly (3) Abnormal ECG: Code(s): R94.31 - Abnormal electrocardiogram [ECG] [EKG] Plan: see above (4) Wheelchair dependence: Code(s): Z99.3 - Dependence on wheelchair Plan: Pt 's daughter will try to purchase scale to attach to her Jumana at home. Coding Level of Care Code Est Pt Level 4 (56989) Diagnoses Morbid obesity E66.01 JOYCE (obstructive sleep apnea) G47.33 Abnormal ECG R94.31 Wheelchair dependence Z99.3
[2023-04-20 09:32] VITALS: BP 150/72; PULSE 80; TEMP 36.4; O2SAT 96; BMI 47.8
== END 2023-04-20 10:03 | disposition home or self-care (01) ==
PROVIDERS: PCP Student in an Organized Health Care Education/Training Program; Visit Provider Physician Assistant
DX: E66.01 Morbid (severe) obesity due to excess calories (principal); G47.33 Obstructive sleep apnea (adult) (pediatric); R94.31 Abnormal electrocardiogram [ECG] [EKG]; Z99.3 Dependence on wheelchair
CPT/HCPCS: 99214

== ENCOUNTER → 2023-04-20 09:19 | Outpatient (BNVA) | payer OTHER, SELFPAY | PROVIDERS: PCP Student in an Organized Health Care Education/Training Program; Visit Provider Physician Assistant | DX: E66.01 Morbid (severe) obesity due to excess calories (principal); G47.33 Obstructive sleep apnea (adult) (pediatric); R94.31 Abnormal electrocardiogram [ECG] [EKG]; Z68.42 Body mass index [BMI] 45.0-49.9, adult | CPT/HCPCS: 99212 ==

== ENCOUNTER 2023-05-30 09:58 | Outpatient (AMB) | payer OTHER, SELFPAY ==
--- NOTE | 2023-05-30 10:01 | A.OFFVIS_ITS ---
Intake VS Expanded 05/30/23 10:14 BP 152/76 H Blood Pressure Location Lt brachial Blood Pressure Position Sitting Pulse 66 Pulse Source Pulse Oximeter Temp 95.6 F L Temperature Source Temporal Artery Scan Pulse Oximetry 95 Oxygen Delivery Method Room Air Height 5 ft 6 in Weight 293 lb 4.8 oz BMI 47.3 Intake Visit Reasons: (OV) F/U SWL Allergies lisinopril Allergy (Severe, Uncoded 03/04/23 09:38) Cough Medication List - Last Reconciled 05/30/23 by Charley Hale PA-C amlodipine 10 mg PO QAM aspirin 81 mg PO QAM atorvastatin 10 mg PO QAM calcium citrate-vitamin D3 315 mg-5 mcg (200 unit) 0 tabs PO food supplemt, lactose-reduced (Ensure oral liquid) 1 ea PO TID furosemide 0 mg PO BID ibuprofen 600 mg PO TID tramadol 50 mg PO Q12H PRN HPI HPI Comments History of Present Illness Details 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 Patien t needs to be weig hed on ED scale. W heel chair weighs 40 lbs. Her daught er is astill arang ing for barber lift at [employer]. . Meal p margarita - tea with ORg ain or Premier pow dered shake mixed with 8 oz UAM 12p m - same shake 3p m - grapes or an o range and a Zone P erfect bar 6pm - 1 2 forks vegetable and 12 forks prot einn Exercise - Dilan Capps sitt ing videos 30 -35 minutes 7 d/ week Pre op work up completed as shirley ws: [facility] classes - 12/07 appts -sha ared RD appt s - follow up on 12/22 - now cleared H pylori - POSITI VE, retest negativ e on 03/04 Labs -do ne CXR -IMPRESSION : 1.? Bilateral l ow lung volumes . 2.? Slight accentu ation of the pulmo nary vasculature. 3.? Bibasilar ate lectasis.4.? Mildl y prominent cardio mediastinal silhou ette and widening of the mediastinum . ECG - Normal si nus rhythm Left an terior fascicular blockwith 1st degr ee A-V blockMinima l voltage criteri a for LVH, may be normal variant ( [place] product ) C annot rule out Ant erior infarct , ag e undetermined Abn ormal ECG No previ ous ECGs available Sees [facility] - ECHO and stress t est on 12/10. Saw h er probation [facility] - [facility] E [facility]/Stress tests o n 03/14. We recei grace clearance michaela er from her cardio logist. Nuclear stress test - Prot ocol LEXISCAN Max HR: 10 2 BPM 70% of Pred: 145 BPM Max BP:112/068 mmH G Max Work Load: 1.0 METS Pharmacol ogical stress test with lexiscan in jection while sitt ing and marching i n place, without a nginal symptoms, w ith isolated PAC, with normotensive response to inject ion, with nondiagn ositic EKGs. Nucle ar images pending. [facility]. ECHO - done at her cardioloigist off [place] on Apr 18, r esults pending. O ffice # is - , [place] [facility] ULS and UGI - 12/20 (re scheduled to 01/18) and 01/31- missed a ppts. -- both resc heduled ULS - R 1 4.7 cms and L 13.9 cms1. A mildly co mplex anechoic cys t with fine septat ion is seen within the right hepatic lobe. As a precau tion, repeat abdom inal ultrasoundexa mination is recomm ended in 6 months to ensure stabilit y of this finding. 2. Liver elas tography: Measure ments are suggesti ve of compensated advanced chronic l iver disease but n eed further test f or confirmation. 3. Technically l imited ultrasound examination, in pa rticular of the pa ncreas, abdominal great vessels and gallbladder. UGI - IMPRESSION: 1. Small to moderate -sized hiatal natalee ia. 2. Patulous a nd somewhat tortuo us esophagus witho ut definite strict ure or mass. 3. G astroesophageal re flux 4. Marked es ophageal dysmotili ty. 5. Delayed op ening and somewhat narrowed appearan ce of the lower es ophageal shrink he r suggesting mild achalasia versus a benign distal eso phageal stricture. No heaped up mar gins seen to irvin metz esophageal radha gnancy. 6. Thicke billy appearing fold s of the gastric f undus are felt to most likely repres ent underdistentio n due to inability o the patient to retain the efferve scent granule gas. Given the appeara nce, gastritis,or simply even gastri c neoplasm is not excluded. Recommen d correlating with endoscopy. RESULT S discussed with D r R, no need for E GD, patient is sti ll candidate for L SG SS - 12/20, + O SA - patient has b een referred to lmonology. Appt on 02/24 - CPAP set tings of 6-16 cms. PFSH Surgical History Hx of parathyroidectomy Family History Mother No problems noted. Father No problems noted. Brother Hypertension Daughter Hypertension Social History Alcohol intake: never Patient Tobacco Use Status: Never used Tobacco Assessment & Plan Assessment & Plan (1) Morbid obesity: Code(s): E66.01 - Morbid (severe) obesity due to excess calories Plan: 77 yo woman who is wheelchair bound due to deconditioning has completed all pre operative work up with cardiology clearance. Her TBWL is 9.5 % and will be scheduled for surgical consultaion now. Only meal change is to have approved fruit with her dinner - not with her bar. Continue PE chair exercise 7d/week. Her daughter will text me once her scale is in her home with Mary's weight. Patient is morbidly obese and is not considered stable at this time. I spent 30 minutes in total with patient reviewing/updating records, examining the patient and counseling the patient on weight management as detailed above. Coding Level of Care Code Est Pt Level 4 (67612) Diagnoses Morbid obesity E66.01
[2023-05-30 10:14] VITALS: BP 152/76; PULSE 66; TEMP 35.3; O2SAT 95; BMI 47.3
== END 2023-05-30 10:40 | disposition home or self-care (01) ==
PROVIDERS: PCP Student in an Organized Health Care Education/Training Program; Visit Provider Physician Assistant
DX: E66.01 Morbid (severe) obesity due to excess calories (principal)
CPT/HCPCS: 99214

== ENCOUNTER → 2023-05-30 09:58 | Outpatient (BNVA) | payer OTHER, SELFPAY | PROVIDERS: PCP Student in an Organized Health Care Education/Training Program; Visit Provider Physician Assistant | DX: E66.01 Morbid (severe) obesity due to excess calories (principal); Z68.42 Body mass index [BMI] 45.0-49.9, adult | CPT/HCPCS: 99212 ==

== ENCOUNTER 2023-07-11 09:56 | Outpatient (AMB) | payer OTHER, SELFPAY ==
--- NOTE | 2023-07-11 10:02 | MHC.OFFVISWM ---
Intake VS Expanded 07/11/23 10:08 BP 134/74 Blood Pressure Location Rt brachial Blood Pressure Position Sitting Pulse 67 Pulse Source Pulse Oximeter Temp 96.1 F L Temperature Source Tympanic Pulse Oximetry 90 L Oxygen Delivery Method Room Air Height 5 ft 6 in Weight 301 lb 11.2 oz BMI 48.7 Intake Visit Reasons: OV Consult/Transfer Charley Allergies lisinopril Allergy (Severe, Uncoded 07/11/23 12:01) Cough Medication List - Last Reconciled 07/11/23 by Jose Ding MD amlodipine 10 mg PO QAM aspirin 81 mg PO QAM atorvastatin 10 mg PO QAM calcium citrate-vitamin D3 315 mg-5 mcg (200 unit) 0 tabs PO food supplemt, lactose-reduced (Ensure oral liquid) 1 ea PO TID furosemide 0 mg PO BID ibuprofen 600 mg PO TID tramadol 50 mg PO Q12H PRN HPI HPI Comments History of Present Illness Details Overall weight loss: 23.1 lbs, or 7.13% TBWL Wakes up: 6am, Dinner: 8pm Is doing 2 Orgain protein shakes (1 scoop each in 8oz almond milk), one Zone Perfect protein bar, meal (12 forks of protein and 12 forks salad and one orange) Exercise: Wheelchair exercises PFSH Medical History (Updated 07/11/23 @ 12:40 by Jose Ding MD) Diaphragmatic hernia Surgical History Hx of parathyroidectomy Family History Mother No problems noted. Father No problems noted. Brother Hypertension Daughter Hypertension Social History Alcohol intake: never Patient Tobacco Use Status: Never used Tobacco Physical Exam Vital Signs: Last Vital Signs Temp 96.1 F L 07/11/23 10:08 Pulse 67 07/11/23 10:08 BP 134/74 07/11/23 10:08 Pulse Ox 90 L 07/11/23 10:08 Oxygen Delivery Method Room Air 07/11/23 10:08 GI Inspection: Yes normal to inspection (gynecoid) and Yes obesity Palpation (GI): Firmness to palpation present (GI) Extrem Right lower extremity: normal to inspection (ankle edema) Left lower extremity: normal to inspection (ankle edema) Assessment & Plan Assessment & Plan (1) Morbid obesity: Code(s): E66.01 - Morbid (severe) obesity due to excess calories Plan: 1. Plan for lap sleeve gastrectomy including upper GI endoscopy. All tests has been completed and reviewed and the patient is cleared for the surgery. ?If diaphragmatic or ventral hernias are present at time of surgery, these will be repaired laparoscopically as well. Risks and complications were discussed in detail including possible conversion to an open procedure, anastomotic leak, bleeding requiring transfusion, small bowel obstruction, , DVT and pulmonary embolism, cardiac, or pulmonary complications, as termite control representative complications such as anastomotic ulcer, insufficient weight loss and vitamin deficiencies. I emphasized the importance of close follow-up, adherence to instructions and good communication. So far she has proven to be an excellent communicator and very compliant with all our directions accomplishing a great weight loss. I believe that she is an excellent candidate and she is ready. 2. The patient participated in a structured preoperative lifestyle intervention program supervised by a physician the 7 months preceding the surgical procedure. The lifestyle intervention included a structured nutritional plan with a specific daily protein intake goal, an wheelchair-bound exercise plan, weekly behavior modification guidance and completion of eight 1-hour online nutritional classes and passing successfully the corresponding quizzes. Adherence to preoperative care plan was demonstrated by completing an extensive preoperative work-up. Program participation was demonstrated by completing 7 visits with our medical team and by sharing weekly weight measurements weekly for 7 consecutive months. Compliance to the lifestyle intervention was demonstrated by achieving a 23.1lbs weight-loss or 7.13% total body weight loss (TBWL). No medications were used to achieve this weight loss. In our published experience an over 7% preoperative TBWL, achieved by meeting the diet and exercise goals of our program improves surgical outcomes, reduces the potential for surgical complications, and predicts a statistically significant higher weight loss up to 6 years postoperatively. 3. Change nutritional plan to 2 Orgain shakes (1 scoop each in 8oz almond milk) at 7am-9am and 10am-12pm, one Zone Perfect protein bar at 1pm-3pm, dinner at 4pm-5pm (8 forks of meat and 8 forks of salad or vegetables, or 4 forks of salad and one fruit) and one more Zone Perfect protein bat at 6pm-8pm 4. Continue to send me weight measurements weekly 5. Check your blood pressure daily and let me know if it is below 120/70 Orders: Orders CT chest wo IV con Today K44.9 - Diaphragmatic hernia without obstruction or gangrene CT abdomen pelvis wo IV con Today K44.9 - Diaphragmatic hernia without obstruction or gangrene Coding Level of Care Code Tele Est Pt Level 5 (45920) Diagnoses Morbid obesity E66.01 Time Spent (min) 60
[2023-07-11 10:08] VITALS: BP 134/74; PULSE 67; TEMP 35.6; O2SAT 90; BMI 48.7
== END 2023-07-11 12:43 | disposition home or self-care (01) ==
PROVIDERS: PCP Student in an Organized Health Care Education/Training Program; Visit Provider Surgery
DX: E66.01 Morbid (severe) obesity due to excess calories (principal); Z68.42 Body mass index [BMI] 45.0-49.9, adult
CPT/HCPCS: 99215

== ENCOUNTER → 2023-07-11 09:56 | Outpatient (BNVA) | payer OTHER, SELFPAY | PROVIDERS: PCP Student in an Organized Health Care Education/Training Program; Visit Provider Surgery | DX: E66.01 Morbid (severe) obesity due to excess calories (principal); Z68.42 Body mass index [BMI] 45.0-49.9, adult | CPT/HCPCS: 99212 ==

== ENCOUNTER 2023-08-12 08:29 | Outpatient (AMB) | payer OTHER, SELFPAY ==
--- NOTE | 2023-08-12 14:39 | MHC.OFFVISWM ---
Intake VS Expanded 08/12/23 14:48 Height 5 ft 6 in Weight 288 lb BMI 46.5 Intake Visit Reasons: TV Pre Op LSG 08/30/23 Allergies lisinopril Allergy (Severe, Uncoded 08/12/23 14:40) Cough Medication List - Last Reconciled 08/12/23 by Jose Ding MD amlodipine 10 mg PO QAM aspirin 81 mg PO QAM atorvastatin 10 mg PO QAM calcium citrate-vitamin D3 315 mg-5 mcg (200 unit) 1 tab PO BID food supplemt, lactose-reduced (Ensure oral liquid) 1 ea PO TID furosemide 0 mg PO BID ibuprofen 600 mg PO TID ondansetron 4 mg PO Q12H pantoprazole 40 mg PO DAILY polyethylene glycol 3350 (Miralax) 17 grams PO DAILY sucralfate 10 mL PO BID tramadol 50 mg PO Q12H PRN HPI TV Pre Op LSG 08/30/23 HPI Details Start time: 2.26pm, End time: 2.56pm ?I spent 25 minutes speaking with the patient on the phone plus an additional 5 minutes reviewing and updating records for a total of 30 minutes HPI Comments History of Present Illness Details Overall weight loss: 36.1lbs, or 11.94% TBWL Is doing 5 Orgain protein shakes per day 2 scoops each in almond milk [facility] Medical History (Updated 07/11/23 @ 12:40 by Jose Ding MD) Diaphragmatic hernia Surgical History Hx of parathyroidectomy Family History Mother No problems noted. Father No problems noted. Brother Hypertension Daughter Hypertension Social History Alcohol intake: never Patient Tobacco Use Status: Never used Tobacco Assessment & Plan Assessment & Plan (1) Morbid obesity: Code(s): E66.01 - Morbid (severe) obesity due to excess calories Plan: 1. Plan for lap sleeve gastrectomy including upper GI endoscopy. All tests has been completed and reviewed and the patient is cleared for the surgery. ?If diaphragmatic or ventral hernias are present at time of surgery, these will be repaired laparoscopically as well. Risks and complications were discussed in detail including possible conversion to an open procedure, anastomotic leak, bleeding requiring transfusion, small bowel obstruction, , DVT and pulmonary embolism, cardiac, or pulmonary complications, as long term care pharmacist complications such as anastomotic ulcer, insufficient weight loss and vitamin deficiencies. I emphasized the importance of close follow-up, adherence to instructions and good communication. So far she has proven to be an excellent communicator and very compliant with all our directions accomplishing a great weight loss. I believe that she is an excellent candidate and she is ready. 2. Preop prescriptions were provided and explained the purpose of each one. Need to be purchased preop. Start Pantoprazole now as you get it from the pharmacy, 1 pill per day. Sucralfate and Zofran are for after surgery as needed. 3. Bowel prep: please do 7 packets ?of Miralax mixing each one with a an 8oz glass of water, crystal light, gatorade zero, or propel ?on 08/28/23 and the same amount on 08/29/23. The Miralax you begin with one packet at a time in 8oz water or crystal light, gatorade zero, or propel ?as early in the day as you can and you do them back to back until you finish them. Continue the protein shakes during? the bowel prep. 4. Needs to purchase 1oz medicine cups . 5. Needs to purchase Children's liquid Tylenol for postop pain control. 6. She needs to stop the aspirin and ibuprofen as of today 08/12/23. Do not re-start them. Stop the Lasix on 08/28/23 (last day). Don't take it on 08/28 or 08/29 Avoid aspirin, motrin, Advil, Aleve, Ibuprofen, Naproxyn. Tylenol is OK. 7. She needs to purchase the Celebrate 4:1 protein shakes from the hospital's gift shop. 8. Will do basic preop blood work-up any day between Tuesday08/22/23 and Tuesday08/26/23 fasting for 12 hours and is scheduled to see the Anesthesiologist prior to the day of surgery. 9. Importance of adherence to postop folllow-up and recommendations was underscored and she understands that. 10. Continue to avoid food and bars and continue with 5 Orgain protein shakes (TWO scoops EACH in 8-12oz almond milk) at 6am-8a, 9am-11am, 12pm-2pm, 3pm-5pm and 6pm-8pm. 11. No soups, broths or V8 12. The patient's?medical?history has been reviewed and they are considered low risk for post op DVT and therefore DVT prophylaxis is not considered necessary. Travel after surgery was reviewed. The patient has not disclosed any travel plans during the first 30 days after surgery and they have been advised that within the first 30 days after surgery any bus, plane, train or car travel over 2 hours in duration is contraindicated due to the possibility of developing blood clots from immobility. Any travel, needs to include periods of ambulation of 10 minutes in duration every 2 hours.? Patient was instructed to discuss any plans for travel during this period with their bariatric surgeon.? 13. Use your CPAP daily and bring it to the hospital with your mask 14. Please take at the day of surgery the following medications: ONLY the Amlodipine but follow the parameters below: Check your blood pressure daily in the morning. If your blood pressure is: Below 120/70: do not take the Amlodipine 121/71 to 130/85: take HALF Amlodipine Over 131/86: take the whole Amlodipine pill 15. Stop any control pills and don't use them for one month after surgery 16. Absolutely no smoking or vaping, or marijuana until the surgery and for at least the first 4 weeks. Only nicotine patches are allowed. 17. Send me weight measurements on Tuesday08/16/23 and 08/23/23 and then on Tuesday08/30/23, the day of surgery before you go to the hospital. 18. Avoid any steroids by mouth for any reason. Let me know if someone prescribes them to you 19. These instructions supersede anything else you read in the handbook, anything you watched in videos or classes or you were told by any other provider. If there is any conflict, you follow the above instructions and nothing else. Orders: Orders Comprehensive Met. Panel Today E66.01 - Morbid (severe) obesity due to excess calories, E78.5 - Hyperlipidemia, unspecified, I10 - Essential (primary) hypertension TSH reflex Free T4 Today E66.01 - Morbid (severe) obesity due to excess calories, E78.5 - Hyperlipidemia, unspecified, I10 - Essential (primary) hypertension Prothrombin Time INR Today E66.01 - Morbid (severe) obesity due to excess calories, E78.5 - Hyperlipidemia, unspecified, I10 - Essential (primary) hypertension Type and Screen Today E66.01 - Morbid (severe) obesity due to excess calories, E78.5 - Hyperlipidemia, unspecified, I10 - Essential (primary) hypertension Partial Thromboplastin Time Today E66.01 - Morbid (severe) obesity due to excess calories, E78.5 - Hyperlipidemia, unspecified, I10 - Essential (primary) hypertension C Reactive Protein Today E66.01 - Morbid (severe) obesity due to excess calories, E78.5 - Hyperlipidemia, unspecified, I10 - Essential (primary) hypertension Lipid Panel Today E66.01 - Morbid (severe) obesity due to excess calories, E78.5 - Hyperlipidemia, unspecified, I10 - Essential (primary) hypertension Hemoglobin A1c Today E66.01 - Morbid (severe) obesity due to excess calories, E78.5 - Hyperlipidemia, unspecified, I10 - Essential (primary) hypertension Complete Blood Count Auto Diff Today E66.01 - Morbid (severe) obesity due to excess calories, E78.5 - Hyperlipidemia, unspecified, I10 - Essential (primary) hypertension Insulin Today E66.01 - Morbid (severe) obesity due to excess calories, E78.5 - Hyperlipidemia, unspecified, I10 - Essential (primary) hypertension Medications: New pantoprazole 40 mg PO DAILY 90 tabs 0RF K21.9 - Gastro-esophageal reflux disease without esophagitis ondansetron Only take one every 12 hours as needed if you have nausea 4 mg PO Q12H 20 tabs 0RF nausea and vomiting R11.0 - Nausea polyethylene glycol 3350 (Miralax) Mix each packet with 8oz of water, Crystal light, or Gatorade zero, or Propel and do 7 packets on 08/28/23 and another 7 packets on 08/29/23 17 grams PO DAILY 14 ea 0RF Z01.818 - Encounter for other preprocedural examination sucralfate 10 mL PO BID 600 mL 2RF K21.9 - Gastro-esophageal reflux disease without esophagitis Telehealth Telehealth Location of provider rendering services: practice address Location of patient: address on file Patient Identification confirmed using: Name, : Yes Telehealth method: voice only Patient verbally consented to treatment: Yes Patient verbally consented to billing insurance company: Yes Patient informed of any privacy concerns related to visit: Yes Minutes spent on Phone/Video with Pt.: 30 Coding Level of Care Code Tele Est Pt Level 4 (15848) Diagnoses Morbid obesity E66.01 Time Spent (min) 30
[2023-08-12 14:48] VITALS: BMI 46.5
== END 2023-08-12 14:57 | disposition home or self-care (01) ==
LOC: HO.HBS 08:29
PROVIDERS: PCP Student in an Organized Health Care Education/Training Program; Visit Provider Surgery
DX: E66.01 Morbid (severe) obesity due to excess calories (principal)
CPT/HCPCS: 99499

== ENCOUNTER → 2023-08-12 08:29 | Outpatient (BNVA) | payer OTHER, SELFPAY | PROVIDERS: PCP Student in an Organized Health Care Education/Training Program; Visit Provider Surgery ==

== ENCOUNTER 2023-08-24 08:57 | Outpatient (REF) | payer OTHER, SELFPAY | END 2023-08-24 08:58 | disposition home or self-care (01) | LOC: HO.XRAY 08:57 | PROVIDERS: PCP Student in an Organized Health Care Education/Training Program; Visit Provider Physician Assistant Surgical | DX: Z13.89 Encounter for screening for other disorder (principal) ==

== ENCOUNTER 2023-08-25 14:21 | Outpatient (REF) | payer OTHER, SELFPAY ==
--- NOTE | ~2023-08-25 | CT_ITS ---
EXAMINATION: CT CHEST, ABDOMEN AND PELVIS WITHOUT CONTRAST CLINICAL INFORMATION: Diaphragmatic hernia. COMPARISON: Abdominal ultrasound dated 02/28/2023. TECHNIQUE: Multidetector volumetric imaging was performed from the thoracic inlet through the pubic symphysis without the administration of oral or intravenous contrast. Sagittal and coronal reformatted images were obtained on the technologist workstation. This CT examination was performed using dose optimization techniques as appropriate, variously including the following: *Automated exposure control. *Adjustment of mA and/or kV according to patient size (this includes techniques or standardized protocols for targeted exams where dose is matched to indication/reason for exam, i.e., extremities or head). *Use of iterative reconstruction technique. DLP: 909 mGy-cm. FINDINGS: CHEST: LUNGS: The lungs are clear with no evidence of inflammation or nodules. There are bilateral scattered foci of minor scar/subsegmental atelectasis, without associated focal airway obstruction. MEDIASTINUM: The mediastinum is normal. Central vascular structures are unremarkable. No hilar or mediastinal lymphadenopathy. PERICARDIUM/PLEURA: There is no significant effusion. No pleural mass or thickening. CHEST WALL/AXILLA: Unremarkable. ABDOMEN/PELVIS: LIVER, GALLBLADDER, BILIARY TREE: The liver is normal in shape and attenuation. There is a Yoana's lobe configuration. Within hepatic segment 4A (6:56), a 1.2 cm cyst is seen, with precontrast Hounsfield value of 3.9 units. Within the right hepatic lobe towards the ligamentum teres, a stable 1.3 cm mildly complex cyst is redemonstrated, corresponding with the recent ultrasound findings. No biliary ductal dilatation is present. The gallbladder is unremarkable, with no evidence of radiopaque gallstones, gallbladder wall thickening or pericholecystic inflammatory changes. PANCREAS: Unremarkable. SPLEEN: No focal finding. There is no splenomegaly. Peripheral capsular calcifications are of incidental note. ADRENAL GLANDS: Unremarkable. KIDNEYS AND URETERS: The kidneys are normal in size, shape, and attenuation. No hydronephrosis or hydroureter or calculi seen. No perinephric stranding. BLADDER: Unremarkable. GASTROINTESTINAL TRACT: There is moderate diverticulosis, without acute diverticulitis. No obstruction, free intraperitoneal air or abscess is seen. There is no focal bowel wall thickening. The vermiform appendix appears normal. ABDOMINAL WALL: There is a diastases rectus. A fat-containing umbilical hernia defect is seen, with neck measuring 1.9 cm. No hiatus hernia or diaphragmatic hernia otherwise is seen. LYMPH NODES: Normal. VASCULAR: There is mild aortoiliac atherosclerotic calcification. No abdominal aortic aneurysm is seen. PELVIC VISCERA: The uterus and adnexa are unremarkable. OSSEOUS STRUCTURES: There is an age-indeterminate moderate T12 anterior wedge compression fracture. There is multi-level thoracolumbar degenerative disc disease, endplate arthropathy and Schmorl's node formation. Vacuum disc phenomenon is noted at T11-T12 and L5-S1. No acute or aggressive osseous finding is seen. CT/CT abdomen pelvis wo IV con IMPRESSION: 1. There is a diastases rectus. A small to moderate fat-containing umbilical hernia defect is seen. No diaphragmatic hernia defect is noted. 2. Hepatic cysts are redemonstrated, one of which within the right lobe showed a mildly complex appearance on the recent abdominal ultrasound examination of 02/28/2023 (please see report). 3. There is moderate diverticulosis, without acute diverticulitis. 4. No pulmonary nodule, mass, infiltrate or groundglass opacity is seen. There are scattered foci of minor pulmonary parenchymal scar/subsegmental atelectasis. 5. There are degenerative changes of the spine. No acute or aggressive osseous finding is noted.
--- NOTE | 2023-08-25 14:28 | ECG_ITS ---
Test Reason : PREOP Blood Pressure : / mmHG Vent. Rate : 076 BPM Atrial Rate : 076 BPM P-R Int : 280 ms QRS Dur : 106 ms QT Int : 428 ms P-R-T Axes : 077 -48 060 degrees QTc Int : 481 ms Sinus rhythm with marked sinus arrhythmia with 1st degree A-V block Left axis deviation Pulmonary disease pattern Minimal voltage criteria for LVH, may be normal variant ( [place] product ) Nonspecific T wave abnormality Abnormal ECG When compared with ECG of 29-NOV-2022 10:58, QT has shortened Referred By: Jayce Agosto Electronically Signed By:ROBERT JOHNSON MD
== END 2023-08-25 14:22 | disposition home or self-care (01) ==
LOC: HO.CT 14:21
PROVIDERS: PCP Student in an Organized Health Care Education/Training Program; Visit Provider Surgery
DX: Z01.818 Encounter for other preprocedural examination (principal); K44.9 Diaphragmatic hernia without obstruction or gangrene
CPT/HCPCS: 71250; 74176; 93005

== ENCOUNTER → 2023-08-25 14:28 | Outpatient (BNV) | payer OTHER, SELFPAY | PROVIDERS: PCP Student in an Organized Health Care Education/Training Program; Visit Provider Internal Medicine Cardiovascular Disease | DX: I44.0 Atrioventricular block, first degree (principal) | CPT/HCPCS: 93010 ==

== ENCOUNTER 2023-08-30 05:49 | Inpatient (IN) | payer OTHER, SELFPAY ==
[2023-08-22 14:27] VITALS: BMI 46.5
[2023-08-24 09:20] LABS: Estimated Average Glucose 108 mg/dL; Hemoglobin A1c % 5.4 % (<6.0)
[2023-08-24 09:33] LABS: Alanine Aminotransferase 101 U/L (0-31); Albumin Level 3.8 g/dL (3.5-5.0); Alkaline Phosphatase 138 U/L (39-117); Anion Gap 14 (12-20); Aspartate Amino Transferase 65 U/L (5-31); Bilirubin Total 1.3 mg/dL (0.0-1.0); Blood Urea Nitrogen 33 mg/dL (9-16); C Reactive Protein 2.87 mg/dL (< or = 0.50); Calcium 9.4 mg/dL (8.4-10.2); Carbon Dioxide 29 mmol/L (22-29); Chloride 100 mmol/L (96-108); Cholesterol 165 mg/dL (<200); Creatinine Clr Calc Pharmacy 63.8; Estimated Glomerular Filt Rate 52; Glucose Random 103 mg/dL (60-115); HDL Cholesterol 45 mg/dL (>40); Potassium 3.9 mmol/L (3.3-5.1); Sodium 139 mmol/L (135-145); Total Protein 7.9 g/dL (6.5-8.0)
[2023-08-24 09:46] LABS: LDL Cholesterol Calculated 104 mg/dL (<100); Triglycerides 83 mg/dL (<150)
[2023-08-24 10:41] LABS: Insulin 8 uU/mL (2-29)
--- NOTE | 2023-08-26 10:59 | HO.ANESPROP2 ---
Documented by User: Cris Snow NP 08/29/23 09:18 HPI - Anesthesia Eval Consult details Narrative: Pending: Labs, Imaging from 07/2024 78yo F for Gastrectomy Sleeve-EGD, possible diaphragmatic hernia, possible ventral hernia, possible open Pt bed bound. Follows [facility] Cardiology for AAA, pulmo htn. Last office visit 05/2023. Cleared for bariatric and subsequent knee surgery. [facility] Active Problems Active Problems: All Active Problems JOYCE (obstructive sleep apnea) (Acute) H. pylori infection (Acute) Sleep apnea (Acute) Wheelchair dependence (Acute) Abnormal ECG (Acute) Adjustment disorder, unspecified (Acute) Daytime somnolence (Acute) Pre-op evaluation (Acute) Hypocalcemia (Acute) Osteoporosis (Acute) Hyperlipidemia (Acute) HTN (hypertension), benign (Acute) Morbid obesity (Acute) Diaphragmatic hernia (Acute) Past Medical History Medical History Dyspnea Pulmonary hypertension Personal history of COVID-19 (~04/2023) Bilateral knee pain Osteoporosis Elevated cholesterol HTN (hypertension) JOYCE on CPAP CTS (carpal tunnel syndrome) Limited mobility Aortic aneurysm without rupture Diaphragmatic hernia Family History Family History Mother No problems noted. Father No problems noted. Brother Hypertension Daughter Hypertension Surgical History Surgical History Hx of parathyroidectomy Social History Social History Household Members: Family Household Members Other:: lives with her daughter and grandson and sister Housing: House Are you a primary care rep to a significant other at home: No Alcohol intake: never Comment: confined to bed at home Patient Tobacco Use Status: Never used Tobacco Use of substances other than those prescribed or required for medical reasons: No Are you DNR?: No Advance Directives: No (will bring dos) Advance Directives Information Provided: No Advance Directives on File: No Recently lost weight without trying: No Meds Allergies Allergy/AdvReac Type Severity Reaction Status Date / Time lisinopril Allergy Severe Cough Uncoded 08/30/23 06:17 Home Medications ?Medication ?Instructions ?Recorded ?Confirmed ?Last Taken ?Type amlodipine 10 mg tablet 10 mg PO QAM 08/31/22 08/22/23 Unknown History aspirin 81 mg tablet,delayed 81 mg PO QAM 08/31/22 08/30/23 08/16/23 History release atorvastatin 10 mg tablet 10 mg PO QAM 08/31/22 08/30/23 08/29/23 History furosemide 20 mg tablet 20 mg PO BID 08/31/22 08/30/23 08/26/23 History tramadol 50 mg tablet 50 mg PO Q12H PRN Pain 08/31/22 08/22/23 Unknown History calcium citrate 315 mg-vitamin D3 2 tab PO BID 07/12/23 08/30/23 08/29/23 History 5 mcg (200 unit) tablet acetaminophen 650 mg 650 - 1,300 mg PO TID PRN Pain 08/22/23 08/22/23 Unknown History tablet,extended release alendronate 70 mg tablet 70 mg PO QWEEK 08/22/23 08/22/23 Unknown History Exam Height,Weight and Vital Signs: Height 5 ft 6 in Weight 130.635 kg Pertinent Lab Results Pertinent Lab Results: Laboratory Tests 08/24/23 08/24/23 08:35 08:54 WBC Cancelled RBC Cancelled Hgb Cancelled Hct Cancelled MCV Cancelled MCH Cancelled MCHC Cancelled RDW Cancelled Plt Count Cancelled MPV Cancelled Immature Gran % (Auto) Cancelled Neut % (Auto) Cancelled Lymph % (Auto) Cancelled Kern % (Auto) Cancelled Eos % (Auto) Cancelled Baso % (Auto) Cancelled Lymph # (Auto) Cancelled Kern # (Auto) Cancelled Eos # (Auto) Cancelled Baso # (Auto) Cancelled Abs Immat Gran (auto) Cancelled Absolute Neuts (auto) Cancelled Absolute Nucleated RBC Cancelled Nucleated RBC % (auto) Cancelled Cancelled Hemat Test SEE NOTE PT Cancelled INR Cancelled APTT Cancelled Cancelled Coag Test SEE NOTE Sodium 139 Potassium 3.9 Chloride 100 Carbon Dioxide 29 Anion Gap 14 BUN 33 H Creatinine 1.04 Estim Creat Clear Calc 63.8 Estimated GFR 52 Random Glucose 103 Estimat Average Glucose 108 Hemoglobin A1c % 5.4 Insulin Level 8 Calcium 9.4 Total Bilirubin 1.3 H AST 65 H ALT 101 H Alkaline Phosphatase 138 H C-Reactive Protein 2.87 H Total Protein 7.9 Albumin 3.8 Triglycerides 83 Cholesterol 165 LDL Cholesterol, Calc 104 H HDL Cholesterol 45 TSH 2.20 Blood Type A Positive Antibody Screen NEGATIVE Laboratory Tests 08/27/23 09:05 WBC 5.4 Hgb 14.2 Hct 42.6 Plt Count 207 PT 12.2 INR 1.0 APTT 36.5 Narrative Narrative: EKG 08/2023 Vent. Rate : 076 BPM Atrial Rate : 076 BPM P-R Int : 280 ms QRS Dur : 106 ms QT Int : 428 ms P-R-T Axes : 077 -48 060 degrees QTc Int : 481 ms Sinus rhythm with marked sinus arrhythmia with 1st degree A-V block Left axis deviation Pulmonary disease pattern Minimal voltage criteria for LVH, may be normal variant ( [place] product ) Nonspecific T wave abnormality Abnormal ECG When compared with ECG of 29-NOV-2022 10:58, QT has shortened ECHO 04/2023 1. LV size is nml. Mild conc LVH. LV systolic function nml with EF 60-65%. Indeterminte diastolic function. No evidence of wall motion abnormalities. 2. LA mildly dilated 3. RV nml in size and function 4. No aortic stenosis 5. Accurate pulmonary pressures cannot be determined d/t absence of TR jet. 6. No pericardial effusion 7. Asc aorta dilated @ 4.6cm Stress 01/2023 NM cardiolite stress test Impression: 1. Myocardial perfusion imaging study shows likely normal myocardial perfusion. 2. Gated LVEF is 55% during stress and 58% during rest. 3. Transient ischemic dilatation not present. EKG component of the test reported separately. Documented by User: Ashtyn Herman MD 08/30/23 07:33 [facility] Past Medical History Medical History Dyspnea Pulmonary hypertension Personal history of COVID-19 (~04/2023) Bilateral knee pain Osteoporosis Elevated cholesterol HTN (hypertension) JOYCE on CPAP CTS (carpal tunnel syndrome) Limited mobility Aortic aneurysm without rupture Diaphragmatic hernia Family History Family History Mother No problems noted. Father No problems noted. Brother Hypertension Daughter Hypertension Surgical History Surgical History Hx of parathyroidectomy History of Problems with Anesthesia: No Social History Social History Household Members: Family Household Members Other:: lives with her daughter and grandson and sister Housing: House Are you a primary care rep to a significant other at home: No Alcohol intake: never Comment: confined to bed at home Patient Tobacco Use Status: Never used Tobacco Use of substances other than those prescribed or required for medical reasons: No Are you DNR?: No Advance Directives: No (will bring dos) Advance Directives Information Provided: No Advance Directives on File: No Recently lost weight without trying: No Meds Allergies Allergy/AdvReac Type Severity Reaction Status Date / Time lisinopril Allergy Severe Cough Uncoded 08/30/23 06:17 Home Medications ?Medication ?Instructions ?Recorded ?Confirmed ?Last Taken ?Type amlodipine 10 mg tablet 10 mg PO QAM 08/31/22 08/22/23 Unknown History aspirin 81 mg tablet,delayed 81 mg PO QAM 08/31/22 08/30/23 08/16/23 History release atorvastatin 10 mg tablet 10 mg PO QAM 08/31/22 08/30/23 08/29/23 History furosemide 20 mg tablet 20 mg PO BID 08/31/22 08/30/23 08/26/23 History tramadol 50 mg tablet 50 mg PO Q12H PRN Pain 08/31/22 08/22/23 Unknown History calcium citrate 315 mg-vitamin D3 2 tab PO BID 07/12/23 08/30/23 08/29/23 History 5 mcg (200 unit) tablet acetaminophen 650 mg 650 - 1,300 mg PO TID PRN Pain 08/22/23 08/22/23 Unknown History tablet,extended release alendronate 70 mg tablet 70 mg PO QWEEK 08/22/23 08/22/23 Unknown History Exam Airway Mallampati Class: III TM Dist: >3cm Neck ROM: Limited Partial: Upper and Lower Loose/Missing/Broken Teeth: Yes, Upper and Lower Heart: RRR Lungs: CTA Assessment and Plan Assessment Anesthesia Assessment: Anesthesia Plan Discussed and Chart Reviewed Final Anesthetic Review History of Problems with Anesthesia: No NPO: Yes ASA Class: III Final Preanesthetic Review: Meds/Allgs Chart Reviewed, Consent Obtained/Reviewed and Anes Risks/Benef Reviewed Patient Risk: Intermediate Procedure Risk: Intermediate Anesthetic Plan Anesthetic Plan: GA Disposition: Standard PACU
[2023-08-27 09:19] LABS: Eosinophils Absolute Auto 0.2 X10*3/uL (0.0-0.4); Mean Corpuscular HGB Conc 33.3 g/dl (31.0-35.0); Mean Corpuscular Hemoglobin 24.3 pg (27.0-33.0); SCAN SMEAR FLAG 1
[2023-08-27 09:20] LABS: Prothrombin Time 12.2 SEC (11.1-13.3)
[2023-08-27 09:21] LABS: Basophils Percent Auto 0.7 % (0-2); Hematocrit 42.6 % (37.0-47.0); Hemoglobin 14.2 g/dl (12.0-16.0); Imm Gran Abs Auto 0.02 X10*3/uL (0.00-0.03); Imm Gran Pct Auto 0.4 % (0.0-0.4); Lymphocytes Absolute Auto 1.1 X10*3/uL (1.2-4.9); Lymphocytes Percent Auto 19.5 % (20-40); MANUAL DIFF FLAG SCAN; Mean Corpuscular Volume 72.9 fL (80.0-98.0); Mean Platelet Volume 9.8 fL (9.4-12.3); Monocytes Absolute Auto 0.4 X10*3/uL (0.1-1.2); Monocytes Percent Auto 6.5 % (2-11); Neutrophils Absolute Auto 3.8 x10*3/uL (2.0-8.3); Neutrophils Percent Auto 69.9 % (45-73); PLT ABN DIST 1; PLT CLUMP 1; Platelet Count 207 X10*3/uL (160-400); Red Blood Count 5.84 X10*6/uL (4.20-5.50); Red Cell Distribution Width 20.3 % (11.0-16.0); White Blood Count 5.4 X10*3/uL (4.8-10.8)
[2023-08-27 09:23] LABS: Partial Thromboplastin Time 36.5 SEC (26.0-36.8)
[2023-08-27 09:34] LABS: SLIDE REVIEW VERIFIED
[2023-08-30] VITALS (13 sets, daily range): BP systolic 128–157; BP diastolic 67–87; PULSE 67–86; RESP 13–19; TEMP 36–37.2; O2SAT 90–100; BMI 45.5
--- OUTSIDE RECORDS SUMMARY | 2023-08-30 05:55 | XMS_ITS | Continuity of Care Document ---
Author Organization [facility]olo gy and Diabetes Address [address] [place] [address]- Care Team Providers Care Pediatrician Managing Partner Name Role Phone Karla Roche MD Primary Care Physician [facility] Date[facility]s): 10/06/22 - 11/05/22 [facility] [address] [place] [id number] Attending Physician: AdmJeevan win Admitting Physician: AdmtrJeevan Referring Physician: Admtr, Ar8 Allergies, Adverse Reactions, Alerts Substance Reaction Severity Status lisinopril cough Active Immunizations Given and Recorded Vaccine Date Status Refusal Reason SARS-CoV-2 (COVID-19) mRNA-1273 vaccine 09/17/20 R ecorded SARS-CoV-2 (COVID-19) mRNA-1273 vaccine 08/20/20 R ecorded pneumococcal 13-valent vaccine 01/20/18 Recorded tetanus/diphtheria/pertussis, acel(Tdap) 09/13/17 Recorded Medications amLODIPine 10 mg oral tablet 10 mg, 1, tablet, By Mouth, Daily, Refills 0, Maintenance, 05/24/17 10:41:37 EST Start Date: 05/24/17 Status: Ordered aspirin 81 mg oral delayed release tablet 81 mg, 1, tablet, By Mouth, Daily, Refills 0, Maintenance, 05/24/17 10:41:29 EST Start Date: 05/24/17 Status: Ordered atorvastatin 10 mg oral tablet 1 tablet = 10 mg, By Mouth, Daily in AM, Maintenance, 12/08/20 17:00:00 EDT, Partial fill upon patient request if the prescription is for a schedule II opioid drug. Start Date: 12/08/20 Status: Ordered calcitriol 0.25 mcg oral capsule See Instructions, TAKE ONE CAPSULE EVERY MORNING, # 30 capsule, 0 Refills, Maintenance, 08/27/22 14:29:00 EDT, [facility], 163, cm, 05/19/22 7:35:00 EST, Height, 136.5, kg, 05/13/22 11:45:00 EST, Dry Weight Start Date: 08/27/22 Status: Ordered calcitriol 0.25 mcg oral capsule 1 capsule = 0.25 mcg, By Mouth, Daily, # 30 capsule, 0 Refills, Maintenance, 07/28/22 14:06:00 EDT,Capsule, [facility], Partial fill upon patient request if the prescription is for a schedule II opioid drug., 163, cm, 05/19/22 7:... Start Date: 07/28/22 Status: Ordered calcitriol 0.25 mcg oral capsule 1 capsule = 0.25 mcg, By Mouth, Daily, # 30 capsule, 0 Refills, Maintenance, 06/03/22 16:01:00 EST,Capsule, [facility], Partial fill upon patient request if the prescription is for a schedule II opioid drug., 163, cm, 05/19/22 7:... Start Date: 06/03/22 Stop Date: 07/03/22 Status: Ordered Citracal Maximum + D oral tablet 2 tablet, By Mouth, 4 times a day, # 240 tablet, 8 Refills, Maintenance, 06/04/22 8:36:00 EST, Tablet, [facility], Partial fill upon patient request if the prescription is for a schedule II opioid drug., 2 tablet By Mouth 4 times... Start Date: 06/04/22 Stop Date: 03/01/23 Status: Ordered Evenity 105 mg/1.17 mL subcutaneous solution = 210 mg, Subcutaneous Infusion, Every 28 days, 0 Refills, Maintenance, 05/13/22 11:29:00 EST, Partial fill upon patient request if the prescription is for a schedule II opioid drug. Start Date: 05/13/22 Status: Ordered furosemide 20 mg oral tablet 20 mg, 1, tablet, By Mouth, 2 times a day, Maintenance Start Date: 05/28/22 Status: Ordered traMADol 50 mg oral tablet 1 tablet = 50 mg, By Mouth, Every 6 hours, PRN Pain , Moderate, 0 Refills, Maintenance, 12/14/20 12:21:00 EDT, Tablet, Partial fill upon patient request if the prescription is for a schedule II opioid drug. Start Date: 12/14/20 Status: Ordered Tylenol 325 mg oral tablet 650 mg, 2, tablet, By Mouth, Every 4 hours, Refills 0, Maintenance, 05/19/22 6:56:00 EST, Partial fill upon patient request if the prescription is for a schedule II opioid drug. Start Date: 05/19/22 Status: Ordered Problem List Condition Confirmation Course Effective Dates Status Health St atus Informant Weakness Confirmed Active Hypertension Confirmed Active Severe obesity Confirmed Active Social History Social History Type Response Smoking Status Never (less than 100 in lifetime) entered on: 10/22/21 Sex Patient Care team information Care Team Personnel Name: Malissa ROMAN, Nancy Rodriguez Position: [facility] RN Member Role: Primary Care Nurse Name: Eddie Dunlap MD Position: [facility] Renal MD Member Role: Lifetime Consulting Physician Address: Address: [address] [place] [address], [address] [facility] [address]- Name: Karla Roche MD Position: [facility] Outreach Member Role: PCP Address: Address: [address] [place] [address]- Name: Girish Dumnot MD Position: [facility] Renal MD Member Role: Lifetime Consulting Physician Address: Address: [address] [place] [address] [address] [facility] [place] [address]- Care Team Related Persons Name: HEMALATHA CANELA Address: home [address] [place] [id number]
--- OUTSIDE RECORDS SUMMARY | 2023-08-30 05:55 | XMS_ITS | Continuity of Care Document ---
Author Organization [facility] Diabetes Address [address] [place] [address]- Care Team Providers Care Combination Machine Tool Operator Name Role Phone Karla Roche MD Primary Care Physician [phone] [facility] [facility] [place]s): 12/07/22 - 02/06/23 [facility] [address] [place] [id number] Attending Physician: Bettie Muhammad MD Admitting Physician: Bettie Muhammad MD Referring Physician: Karla Roche MD Allergies, Adverse Reactions, Alerts Substance Reaction Severity [...] capsule, 0 Refills, Maintenance, 08/27/22 14:29:00 EDT, [facility], 163, cm, 05/19/22 7:35:00 EST, Height, 136.5, kg, 05/13/22 11:45:00 EST, Dry Weight Start Date: 08/27/22 Status: Ordered calcitriol 0.25 mcg oral capsule 1 capsule = 0.25 mcg, By Mouth, Daily, # 30 capsule, 0 Refills, Maintenance, 07/28/22 14:06:00 EDT,Capsule, [facility], Partial fill upon patient request if the prescription is for a schedule II opioid drug., 163, cm, 05/19/22 7:... Start Date: 07/28/22 Status: Ordered calcitriol 0.25 mcg oral capsule 1 capsule = 0.25 mcg, By Mouth, Daily, # 30 capsule, 0 Refills, Maintenance, 06/03/22 16:01:00 EST,Capsule, [facility], Partial fill upon patient request if the prescription is for a schedule II opioid drug., 163, cm, 05/19/22 7:... Start Date: 06/03/22 Stop Date: 07/03/22 Status: Ordered Citracal Maximum + D oral tablet 2 tablet, By Mouth, 4 times a day, # 240 tablet, 8 Refills, Maintenance, 06/04/22 8:36:00 EST, Tablet, [facility], Partial fill upon patient request [...] Care team information Care Team Personnel Name: Nancy Leonardo RN Position: [facility] RN Member Role: Primary Care Nurse Name: Eddie Dunlap MD Position: [facility] Renal MD Member Role: Lifetime Consulting Physician Address: Address: [address] [place] [address], [address] [facility] [place] [address]- Name: Karla Roche MD Position: [facility] Outreach Member Role: PCP Address: Address: [address] [place] [address]- Name: Girish Dumont MD Position: [facility] Renal MD Member Role: Lifetime Consulting Physician Address: Address: [address] [place] [address] [address] [facility] [place] [address]- Care Team Related Persons Name: LIO CANELAMOISES Address: home [address] [place] [id number]
--- OUTSIDE RECORDS SUMMARY | 2023-08-30 05:55 | XMS_ITS | Continuity of Care Document ---
Author Organization [facility] Endocrinolo [facility] and Diabetes Address [address] [place] [address]- Care Team Providers Care Autoclave Operator Name Role Phone Karla Roche MD Primary Care Physician [facility] Date(s): 12/16/22 - 01/15/23 [facility] Diabetes [address] [place] [id number] Allergies, Adverse Reactions, Alerts Substance Reaction Severity [...] capsule, 0 Refills, Maintenance, 08/27/22 14:29:00 EDT, [facility], 163, cm, 05/19/22 7:35:00 EST, Height, 136.5, kg, 05/13/22 11:45:00 EST, Dry Weight Start Date: 08/27/22 Status: Ordered calcitriol 0.25 mcg oral capsule 1 capsule = 0.25 mcg, By Mouth, Daily, # 30 capsule, 0 Refills, Maintenance, 07/28/22 14:06:00 EDT,Capsule, [facility], Partial fill upon patient request if the prescription is for a schedule II opioid drug., 163, cm, 05/19/22 7:... Start Date: 07/28/22 Status: Ordered calcitriol 0.25 mcg oral capsule 1 capsule = 0.25 mcg, By Mouth, Daily, # 30 capsule, 0 Refills, Maintenance, 06/03/22 16:01:00 EST,Capsule, [facility], Partial fill upon patient request if the prescription is for a schedule II opioid drug., 163, cm, 05/19/22 7:... Start Date: 06/03/22 Stop Date: 07/03/22 Status: Ordered Citracal Maximum + D oral tablet 2 tablet, By Mouth, 4 times a day, # 240 tablet, 8 Refills, Maintenance, 06/04/22 8:36:00 EST, Tablet, [facility], Partial fill upon patient request if [...] team information Care Team Personnel Name: Malissa RN, Nancy Rodriguez Position: [facility] RN Member Role: Primary Care Nurse Name: Eddie Dunlap MD Position: [facility] Renal MD Member Role: Lifetime Consulting Physician Address: Address: [address] [place] [address], [address] [facility] [place] [address]- Name: Karla Roche MD Position: [facility] Outreach Member Role: PCP Address: Address: [address] [place] [address]- Name: Girish Dumont MD Position: [facility] Renal MD Member Role: Lifetime Consulting Physician Address: Address: [address] [place] [address] [address] [facility] [place] [address]- Care Team Related Persons Name: HEMALATHA CANELA Address: home [address] [place] [id number]
--- OUTSIDE RECORDS SUMMARY | 2023-08-30 05:56 | XMS_ITS | Continuity of Care Document ---
Author Organization [facility] Address [address] [place] [address] [address] [place] [address]- Care Team Providers Care Piston Maker Name Role Phone Karla Roche MD Primary Care Physician [facility]counter [facility] Date(s): 08/27/22 - 09/26/[address] [place] [address]- Allergies, Adverse Reactions, Alerts Substance Reaction Severity [...] capsule, 0 Refills, Maintenance, 08/27/22 14:29:00 EDT, [facility], 163, cm, 05/19/22 7:35:00 EST, Height, 136.5, kg, 05/13/22 11:45:00 EST, Dry Weight Start Date: 08/27/22 Status: Ordered calcitriol 0.25 mcg oral capsule 1 capsule = 0.25 mcg, By Mouth, Daily, # 30 capsule, 0 Refills, Maintenance, 07/28/22 14:06:00 EDT,Capsule, [facility], Partial fill upon patient request if the prescription is for a schedule II opioid drug., 163, cm, 05/19/22 7:... Start Date: 07/28/22 Status: Ordered calcitriol 0.25 mcg oral capsule 1 capsule = 0.25 mcg, By Mouth, Daily, # 30 capsule, 0 Refills, Maintenance, 06/03/22 16:01:00 EST,Capsule, [facility], Partial fill upon patient request if the prescription is for a schedule II opioid drug., 163, cm, 05/19/22 7:... Start Date: 06/03/22 Stop Date: 07/03/22 Status: Ordered Citracal Maximum + D oral tablet 2 tablet, By Mouth, 4 times a day, # 240 tablet, 8 Refills, Maintenance, 06/04/22 8:36:00 EST, Tablet, [facility], Partial fill upon patient request [...] Personnel Name: Malissa RN, Nancy Rodriguez Position: [facility] RN Member Role: Primary Care Nurse Name: Eddie Dunlap MD Position: [facility] Renal MD Member Role: Lifetime Consulting Physician Address: Address: [address] [place] [address], [address] [facility] [place] [address]- Name: Karla Roche MD Position: [facility] Outreach Member Role: PCP Address: Address: [address] [place] [address]- Name: Girish Dumont MD Position: [facility] Renal MD Member Role: Lifetime Consulting Physician Address: Address: [address] [place] [address] [address] [facility] [place] [address]- Care Team Related Persons Name: HEMALATHA CANELA Address: home [address] [place] [id number]
--- OUTSIDE RECORDS SUMMARY | 2023-08-30 05:56 | XMS_ITS | Continuity of Care Document ---
Author Organization [facility] Endocrinolo gy and Diabetes Address [address] [place] [address]- Care Team Providers Care Retail Store Manager Name Role Phone Karla Roche MD Primary Care Physician [phone] Encounter [facility] Date(s): 04/07/23 - 05/07/23 [facility] Diabetes [address] [place] [id number] Allergies, Adverse Reactions, Alerts Substance [...] capsule, 0 Refills, Maintenance, 08/27/22 14:29:00 EDT, [facility], 163, cm, 05/19/22 7:35:00 EST, Height, 136.5, kg, 05/13/22 11:45:00 EST, Dry Weight Start Date: 08/27/22 Status: Ordered Citracal Maximum + D oral tablet 2 tablet, By Mouth, 4 times a day, # 240 tablet, 3 Refills, Maintenance, 03/25/23 13:57:00 EST, Tablet, [facility], Partial fill upon patient request if the prescription is for aschedule II opioid drug., 2 tablet By Mouth 4 times... Start Date: 03/25/23 Stop Date: 07/23/23 Status: Ordered Evenity 105 mg/1.17 mL subcutaneous solution = 210 mg, Subcutaneous Infusion, Every 28 days, 0 Refills, Maintenance, 05/13/22 11:29:00 EST, Partial fill upon patient request if the prescription is for a schedule II opioid drug. Start Date: 05/13/22 Status: Ordered Fosamax 70 mg oral tablet 1 tablet = 70 mg, By Mouth, Every week, # 12 tablet, 4 Refills, Maintenance, 04/14/23 9:08:00 EST, Tablet, [facility], Partial fill upon patient request if the prescription is for a schedule II opioid drug., 163, cm, 05/19/22 7:35... Start Date: 04/14/23 Stop Date: 06/07/24 Status: Ordered furosemide 20 mg oral tablet [...] Team Personnel Name: Nancy Leonardo RN Position: [facility] RN Member Role: Primary Care Nurse Name: Germán HENLEY, Eddie Paris Position: [facility] Renal MD Member Role: Lifetime Consulting Physician Address: Address: [address] [place] [address] [address] [facility] [place] [address]- [place] Name: Karla Roche MD Position: [facility] Outreach Member Role: PCP Address: Address: [address] [place] [address]- [place] Name: Girish Dumont MD Position: [facility] Renal MD Member Role: Lifetime Consulting Physician Address: Address: [address] [place] [address] [address] [facility] [place] [address]- Care Team Related Persons Name: HEMALATHA CANELA Address: home [address] [place] [address]
--- OUTSIDE RECORDS SUMMARY | 2023-08-30 05:56 | XMS_ITS | Continuity of Care Document ---
Author Organization [facility] Endocrinolo gy and Diabetes Address [address] [place] [address]- Care Team Providers Care Otr Flatbed Driver Name Role Phone Karla Roche MD Primary Care Physician [phone] Encounter [facility] Date(s): 07/21/22 - 09/24/22 [facility] Endocrinology and Diabetes [address] [place] [id number] Attending Physician: Bettie Boyd MD Admitting Physician: Bettie Boyd MD Referring Physician: Karla Roche MD Allergies, [...] capsule, 0 Refills, Maintenance, 08/27/22 14:29:00 EDT, [facility], 163, cm, 05/19/22 7:35:00 EST, Height, 136.5, kg, 05/13/22 11:45:00 EST, Dry Weight Start Date: 08/27/22 Status: Ordered calcitriol 0.25 mcg oral capsule 1 capsule = 0.25 mcg, By Mouth, Daily, # 30 capsule, 0 Refills, Maintenance, 07/28/22 14:06:00 EDT,Capsule, [facility], Partial fill upon patient request if the prescription is for a schedule II opioid drug., 163, cm, 05/19/22 7:... Start Date: 07/28/22 Status: Ordered calcitriol 0.25 mcg oral capsule 1 capsule = 0.25 mcg, By Mouth, Daily, # 30 capsule, 0 Refills, Maintenance, 06/03/22 16:01:00 EST,Capsule, [facility], Partial fill upon patient request if the prescription is for a schedule II opioid drug., 163, cm, 05/19/22 7:... Start Date: 06/03/22 Stop Date: 07/03/22 Status: Ordered Citracal Maximum + D oral tablet 2 tablet, By Mouth, 4 times a day, # 240 tablet, 8 Refills, Maintenance, 06/04/22 8:36:00 EST, Tablet, [facility], Partial fill upon patient request [...] Personnel Name: Malissa ROMAN, Nancy Rodriguez Position: [facility] RN Member Role: Primary Care Nurse Name: Eddie Dunlap MD Position: [facility] Renal MD Member Role: Lifetime Consulting Physician Address: Address: [address] [place] [address], [address] [facility] [place] [address]- Name: Karla Roche MD Position: [facility] Outreach Member Role: PCP Address: Address: [address] [place] [address]- Name: Girish Dumont MD Position: [facility] Renal MD Member Role: Lifetime Consulting Physician Address: Address: [address] [place] [address] [address] [facility] [place] [address]- Care Team Related Persons Name: NOHEMYLIO CONNELLYNESSADINA Address: home [address] [place] [id number]
--- OUTSIDE RECORDS SUMMARY | 2023-08-30 05:56 | XMS_ITS | Continuity of Care Document ---
Author Organization [facility]inolo gy and Diabetes Address [address] [place] [address]- Care Team Providers Care Rodeo Rider Name Role Phone Karla Roche MD Primary Care Physician [phone] [facility]counter [facility] Date(s): 08/25/22 - 09/24/22 [facility] [address] [place] [id number] Allergies, Adverse Reactions, Alerts Substance Reaction Severity [...] capsule, 0 Refills, Maintenance, 08/27/22 14:29:00 EDT, [facility], 163, cm, 05/19/22 7:35:00 EST, Height, 136.5, kg, 05/13/22 11:45:00 EST, Dry Weight Start Date: 08/27/22 Status: Ordered calcitriol 0.25 mcg oral capsule 1 capsule = 0.25 mcg, By Mouth, Daily, # 30 capsule, 0 Refills, Maintenance, 07/28/22 14:06:00 EDT,Capsule, [facility], Partial fill upon patient request if the prescription is for a schedule II opioid drug., 163, cm, 05/19/22 7:... Start Date: 07/28/22 Status: Ordered calcitriol 0.25 mcg oral capsule 1 capsule = 0.25 mcg, By Mouth, Daily, # 30 capsule, 0 Refills, Maintenance, 06/03/22 16:01:00 EST,Capsule, [facility], Partial fill upon patient request if the prescription is for a schedule II opioid drug., 163, cm, 05/19/22 7:... Start Date: 06/03/22 Stop Date: 07/03/22 Status: Ordered Citracal Maximum + D oral tablet 2 tablet, By Mouth, 4 times a day, # 240 tablet, 8 Refills, Maintenance, 06/04/22 8:36:00 EST, Tablet, [facility], Partial fill upon patient request if [...] Personnel Name: Malissa RN, Nancy Rodriguez Position: [facility] RN Member Role: Primary Care Nurse Name: Eddie Dunlap MD Position: [facility] Renal MD Member Role: Lifetime Consulting Physician Address: Address: [address] [place] [address], [address] [facility] [place] [address]- Name: Karla Roche MD Position: [facility] Outreach Member Role: PCP Address: Address: [address] [place] [address]- Name: Girish Dumont MD Position: [facility] Renal MD Member Role: Lifetime Consulting Physician Address: Address: [address] [place] [address] [address] [facility] [place] [address]- Care Team Related Persons Name: HEMALATHA CANELA Address: home [address] [place] [id number]
--- OUTSIDE RECORDS SUMMARY | 2023-08-30 05:56 | XMS_ITS | Continuity of Care Document ---
Author Organization [facility] Endocrinolo gy and Diabetes Address [address] [place] [address]- Care Team Providers Care Research Librarian Name Role Phone Karla Roche MD Primary Care Physician [phone] Encounter [facility] Date(s): 02/10/23 - 05/08/23 [facility] Endocr[facility]ology and Diabetes [address] [place] [id number] Attending Physician: Bettie Muhammad MD Admitting [...] capsule, 0 Refills, Maintenance, 08/27/22 14:29:00 EDT, [facility], 163, cm, 05/19/22 7:35:00 EST, Height, 136.5, kg, 05/13/22 11:45:00 EST, Dry Weight Start Date: 08/27/22 Status: Ordered Citracal Maximum + D oral tablet 2 tablet, By Mouth, 4 times a day, # 240 tablet, 3 Refills, Maintenance, 03/25/23 13:57:00 EST, Tablet, [facility], Partial fill upon patient request if [...] 4 Refills, Maintenance, 04/14/23 9:08:00 EST, Tablet, [facility], Partial fill upon patient request if [...] Team Personnel Name: Nancy Leonardo RN Position: [facility] RN Member Role: Primary Care Nurse Name: Eddie Dunlap MD Position: [facility] Renal MD Member Role: Lifetime Consulting Physician Address: Address: [address] [place] [address] [address] [facility] [place] [address]- [place] Name: Karla Roche MD Position: [facility] Outreach Member Role: PCP Address: Address: [address] [place] [address]- [place] Name: Girish Dumont MD Position: [facility] Renal MD Member Role: Lifetime Consulting Physician Address: Address: [address] [facility] [address] [facility] [place] [address]- [place] Care Team Related Persons Name: HEMALATHA CANELA Address: home [address] [place] [address]
--- OUTSIDE RECORDS SUMMARY | 2023-08-30 05:56 | XMS_ITS | Continuity of Care Document ---
Author Organization [facility] Endocrinolo gy and Diabetes Address [address] [place] [address]- Care Team Providers Care Electrical System Specialist Name Role Phone Karla Roche MD Primary Care Physician [phone] [facility]counter [facility] Date(s): 03/25/23 - 04/24/23 [facility] Endocrinology and Diabetes [address] [place] [email or web address] Allergies, Adverse Reactions, Alerts Substance Reaction Severity [...] capsule, 0 Refills, Maintenance, 08/27/22 14:29:00 EDT, [facility], 163, cm, 05/19/22 7:35:00 EST, Height, 136.5, kg, 05/13/22 11:45:00 EST, Dry Weight Start Date: 08/27/22 Status: Ordered Citracal Maximum + D oral tablet 2 tablet, By Mouth, 4 times a day, # 240 tablet, 3 Refills, Maintenance, 03/25/23 13:57:00 EST, Tablet, [facility], Partial fill upon patient [...] 4 Refills, Maintenance, 04/14/23 9:08:00 EST, Tablet, [facility], Partial fill upon patient [...] Personnel Name: Malissa RN, Nancy Rodriguez Position: [facility] RN Member Role: Primary Care Nurse Name: Eddie Dunlap MD Position: [facility] Renal MD Member Role: Lifetime Consulting Physician Address: Address: [address] [place] [address] [address] [place] [address]- [place] Name: Karla Roche MD Position: [facility] Outreach Member Role: PCP Address: Address: [address] [place] [address]- [place] Name: Girish Dumont MD Position: [facility] Renal MD Member Role: Lifetime Consulting Physician Address: Address: [address] [facility] [address] [facility] [place] [address]- [place] Care Team Related Persons Name: HEMALATHA CANELA Address: home [address] [place] [id number]
--- OUTSIDE RECORDS SUMMARY | 2023-08-30 05:56 | XMS_ITS | Continuity of Care Document ---
Author Organization [facility] Address [address] [place] [address]- Care Team Providers Care Warehouse Packer Name Role Phone Karla Roche MD Primary Care Physician Encounter [facility] Date(s): 04/05/23 - 05/05/23 [facility] [address] [place] [id number]- Allergies, Adverse Reactions, Alerts Substance Reaction Severity [...] Refills, Maintenance, 08/27/22 14:29:00 EDT, [facility], 163, cm, 05/19/22 7:35:00 EST, Height, 136.5, kg, 05/13/22 11:45:00 EST, Dry Weight Start Date: 08/27/22 Status: Ordered Citracal Maximum + D oral tablet 2 tablet, By Mouth, 4 times a day, # 240 tablet, 3 Refills, Maintenance, 03/25/23 13:57:00 EST, Tablet, [facility], Partial fill upon patient request [...] Maintenance, 04/14/23 9:08:00 EST, Tablet, [facility], Partial fill upon patient request [...] Team Personnel Name: Nancy Leonardo RN Position: [facility] RN Member Role: Primary Care Nurse Name: Eddie Dunlap MD Position: [facility] Renal MD Member Role: Lifetime Consulting Physician Address: Address: [address] [place] [address] [id number] [facility] [place] [address]- [place] Name: Karla Roche MD Position: [facility] Outreach Member Role: PCP Address: Address: [address] [place] [address]- [place] Name: Girish Dumont MD Position: [facility] Renal MD Member Role: Lifetime Consulting Physician Address: Address: [address] [place] [address] [address] [facility] [place] [address]- Care Team Related Persons Name: HEMALATHA CANELA Address: home [address] [place] [address]
--- OUTSIDE RECORDS SUMMARY | 2023-08-30 05:56 | XMS_ITS | Continuity of Care Document ---
Author Organization [facility] Address [address] [place] [address]- Care Team Providers Care Director Outpatient Services Name Role Phone Karla Roche MD Primary Care Physician Encounter [facility] Date(s): 05/06/23 - 06/05/23 [facility] [address] [place] [id number] Attending Physician: Admtr, Ar8 Admitting Physician: Admtr, Ar8 Referring Physician: Admtr, Ar8 Allergies, Adverse Reactions, [...] capsule, 0 Refills, Maintenance, 08/27/22 14:29:00 EDT, [facility], 163, cm, 05/19/22 7:35:00 EST, Height, 136.5, kg, 05/13/22 11:45:00 EST, Dry Weight Start Date: 08/27/22 Status: Ordered Citracal Maximum + D oral tablet 2 tablet, By Mouth, 4 times a day, # 240 tablet, 3 Refills, Maintenance, 03/25/23 13:57:00 EST, Tablet, [facility], Partial fill upon patient request [...] 4 Refills, Maintenance, 04/14/23 9:08:00 EST, Tablet, [facility], Partial fill upon patient request [...] Personnel Name: Malissa RN, Nancy Rodriguez Position: S RN Member Role: Primary Care Nurse Name: Eddie Dunlap MD Position: [facility] Renal MD Member Role: Lifetime Consulting Physician Address: Address: [address] [place] [address] [address] [place] [address]- [place] Name: Karla Roche MD Position: [facility] Outreach Member Role: PCP Address: Address: [address] [place] [address]- [place] Name: Girish Dumont MD Position: [facility] Renal MD Member Role: Lifetime Consulting Physician Address: Address: [address] [facility] [address] [facility] [place] [address]- Care Team Related Persons Name: HEMALATHA CANELA Address: home [address] [place] [address]
--- NOTE | 2023-08-30 06:45 | PHA.MEDREC ---
Pharmacy Consult ? Medication Reconciliation Pharmacy has REVIEWED the medication reconciliation done by RN.
[2023-08-30] MEDS: Lactated Ringers 1,000 ML 999 ML IV (07:00)
[2023-08-30] MEDS: Lactated Ringers 1,000 ML 100 ML IVCONT ×3 (07:00→22:12)
[2023-08-30] MEDS: Aprepitant 32 MG/4.4 ML VIAL IVPUSH (07:00)
--- NOTE | 2023-08-30 07:37 | MHC.SHP ---
Pre-Procedural Eval Section A - 24 Hr Update-Section A only Date of Service: 08/30/23 The patient is an INPATIENT: Yes The patient has been examined within 24 hours of the surgical procedure. The History & Physical has been completed within 30 days and I have reviewed it.: Yes Section B - Complete if H&P > 30 days Chief Complaint: Morbid obesity Relevant Family History (Specify if Yes): No Relevant Social History: None Present Medications: None Medical History: No relevant PMH History of Previous Operations: No relevant previous surgery Allergies: Allergies Allergy/AdvReac Type Severity Reaction Status Date / Time lisinopril Allergy Severe Cough Uncoded 08/30/23 06:17 Review of Systems Sugical H&P ROS: Negative: Constitution, Cardiovascular, Respiratory, Neurological, Psychiatric, Hem-Onc, Allergic/Immunologic, Gastrointestinal, Genitourinary, Musculoskeletal, Integumentary, Endocrine and Eyes/Ears/Nose/Throat Exam Surgical H&P Exam: Normal: HEENT, Normal: Heart, Normal: Lungs, Normal: Extremities, Normal: Abdomen, Normal: Skin and Normal: Neurological Plan Diagnosis/Plan: Unchanged I have reviewed the history and physical and performed a pertinent physical examination on my patient. No changes have occurred unless specified. Time Spent With Patient Time: Total time managing care of this patient today ____ minutes.
--- NOTE | 2023-08-30 07:38 | PM.OP ---
Brief Operative Note Date of Service: 08/30/23 Pre-op diagnosis: Morbid obesity with comorbidities (see below) Post-op diagnosis: same (& congenital abdominal adhesions) Procedure: INITIAL PATIENT BMI ON PRESENTATION AT OUR OFFICE: 52.3 kg/m2 LAST BMI BEFORE SURGERY: 45.7 kg/m2 COMORBIDITIES: Hypertension, hyperlipidemia, sleep apnea on CPAP, DJD, GERD, LVH, 1st degree AV block ?The patient presented to the Weight Management Program with significant obesity that was negatively impacting the patient's comorbidities as listed above.? The program is a phased program with a special focus on preoperative medical weight management to promote substantial weight loss and prepare the patients for the second phase of the program: bariatric surgery. The patient participated in an intensive weekly lifestyle ?intervention and exercise program during which the patient ?has lost between the initial office visit and the last preoperative visit 41.1 lbs, or 12.7% of initial actual body weight. It was deemed appropriate for the patient to now have bariatric surgery. In light of the current Covid-19 pandemic and the well documented strong association of obesity and increased risk of worse outcomes if infected with Covid-19 (REFERENCES:https://pubmed.ncbi.nlm.nih.gov/57893822/,?https://pubmed.ncbi.nlm.nih.gov/75752213/), any delay in undergoing bariatric surgery may lead to the patient's worsening health condition and increased?risk of more severe Covid-19 disease if infected. In addition a recent?study from [facility] published in [facility] [employer] on 04/27/2021 ([email or web address]) found that, among patients with obesity, substantial weight loss achieved with surgery was associated with improved outcomes of COVID-19 infection. The findings suggest that obesity can be a modifiable risk factor for the severity of COVID-19 infection. In addition, the patient met the BMI-criteria for bariatric surgery based on the BMI on initial presentation. The patient should not be penalized for achieving such weight loss because ?it is not sustainable long-term without surgical intervention and it was achieved in preparation for bariatric surgery ?under my direction and based on my published research ([email or web address]).pdf and?https://www.soard.org/article/X4412-5297(39)62499-X/pdf) ?that a 10% preoperative weight loss improves long-term weight loss after surgery and reduces perioperative complications.? Insurance carriers such as [facility] have endorsed my recommendations ?and have included in their policies criteria to include a 10% preoperative weight loss requirement. 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 The risks and complications of the procedure were discussed with the patient in advance, particularly the possibility of ; pulmonary embolism; staple line leak; bleeding; GERD; cardiac, pulmonary, or renal complications; as well as long-term problems such as insufficient weight loss, vitamin deficiency, strictures, or ulcers. The patient understood all the risks, and was in agreement to proceed with surgery. DESCRIPTION OF PROCEDURE: After informed consent was obtained from the patient, the patient was given preoperative antibiotics, and was transferred to the operating room. After successful induction of general anesthesia, pneumatic compression devices were placed on both lower extremities. An upper endoscopy was performed next. The oropharynx and esophagus appeared to be within normal limits. There was a diaphragmatic hernia present of moderate size consistent with the findings of the preoperative upper GI. The stomach was entered. Then after all fluid and air were suctioned and the stomach was fully decompressed, the scope was withdrawn and secured in the mid esophagus. The patient was then prepped and draped in the usual sterile manner, and abdominal access was established at the right upper quadrant with the Tera technique. A 12 mm blunt port was inserted, and the abdomen was insufflated with CO2 to a pressure of 15 mmHg. Under direct visualization, additional ports were placed, specifically two 5 mm Versi-step ports to the left upper quadrant, and a 5 mm Versi-Step port to the right upper quadrant. 1% lidocaine plain was used to infiltrate all port sites as well as all fascia defects. Following that, the patient was placed in a steep reverse Trendelenburg position. An additional 5 mm port was placed to the right flank for the Mediflex retractor that was used to retract the left lobe of the liver. The gastro-esophageal fat pad was opened with the ultrasonic device (Thunderbeat, Olympus) and the anterior esophagus and hiatus were exposed. The angle of His was opened with the ultrasonic device the fundus of the stomach from any diaphragmatic and splenic attachments. I then opened the gastrocolic ligament between the transverse colon and the greater curvature of the stomach with the ultrasonic device to enter the lesser sac and facilitate the ligation of the short gastric vessels. I started at a mid-point along the greater curvature and using the Thunderbeat, all short gastric vessels were divided all the way to the angle of His until the left tisha was completely dissected at its entirety. I then divided the gastro-colic ligament distally to a distance of about 3-4 cm proximal to the pylorus. There were extensive congenital adhesions between the pancreas and posterior gastric wall. Those were lysed completely with the ultrasonic device. Adhesiolysis took approximately 45 min to complete. 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 Endoscopy was performed and it was clear that the tumors were not originating from the mucosa. One of them was near the lesser curvature of the stomach and made its resection very challenging. However, I was able to incorporate both to the specimen. This required multiple endoscopies before each staple fire to make sure that I would not narrow the sleeve conduit. Also I used more PETER-45 staple loads to be more accurate in the resection line which also prolonged the operation significantly. The stomach was then divided transversely with four Endo PETER-45 purple and three PETER-60 articulating purple loads using the SmartlingIA stapler and loads. Every effort was made that the gastric sleeve had a tubular shape and an even caliber throughout. Once the sleeve resection was completed, the staple line of the gastric sleeve was reinforced with Hemoclips. The resected stomach was retrieved without difficulty from the Tera port. A gastropexy was then performed in order to prevent postoperative GERD and partial gastric volvulus. Several interrupted 2.0 Surgidac sutures were placed between the sleeve's staple line and the previously divided greater omentum and gastro-colic ligament using the Endo-Stitch device. ?An upper endoscopy was performed. There was no narrowing at the GE junction. The scope was easily advanced all the way to the pylorus which was clearly visualized. There was no narrowing anywhere and the sleeve's caliber was even throughout. The sleeve's staple line was inspected and there was no evidence of ischemia, bleeding or dehiscence. At that point the gastroscope was withdrawn from the patient?s mouth while we were decompressing the bowel and the stomach from any remaining air. I looked into the lesser sac to see how the sleeve was situating and it was situating well. There was no bleeding from the staple line, spleen, or short gastric vessels. The Mediflex retractor was removed, and the undersurface of the liver was inspected and there was no bleeding. The patient was placed in supine position. I closed the fascial defect of the 12 mm port site with a figure of eight #1 Polysorb suture. Then 30cc Ropivacaine plain with 10 mg of Dexamethasone were used to infiltrate the fascial closure as well as all skin incisions. A total of 7ml Zynrelef was applied in the Tera wound. At this point, the abdomen was deflated, all ports were removed under direct vision, and no bleeding was noted from any of the port sites. The skin incisions were irrigated with saline and were closed with 4-0 absorbable monofilament sutures. Steri-Strips and OpSites were used to cover all incisions. The patient was extubated and was transferred in stable condition to the recovery room for further care. I was present and performed all shaver parts of the procedure. Ms. Bergeronmamie was the respiratory therapist assistant. There were no residents to assist with this case. Manpreet Ding MD, PhD, FACS Surgeon: Jose Ding MD Anesthesia: GETA, local and other (TAP block and 7ml Zynrelef) Was an Gmat Tutor used for this Procedure?: No Gmat Tutor: Mile Christine Estimated blood loss (mL): 10 IV fluids (mL): 3,000 Urine output (mL): 350 Pathology: other (Stomach and two stromal tumors) Condition: stable Disposition: PACU
--- NOTE | 2023-08-30 07:44 | PM.PNGS ---
Subjective Subjective Date of Service: 08/31/23 Interval history: Feels well. Mild incisional pain. She is tolerating phase 1 bariatric diet Physical Exam Vital Signs: Vital Signs: Last Vital Signs Temp 98.3 F 08/30/23 06:58 Pulse 69 08/30/23 06:58 Resp 16 08/30/23 06:58 BP 150/76 H 08/30/23 06:58 Pulse Ox 92 08/30/23 06:58 O2 Del Method Room Air 08/30/23 06:58 BMI result Body Mass Index 45.5 GI: Inspection: Yes normal to inspection, Yes incision (clean, dry and intact) and Yes obesity Palpation (GI): Soft to palpation Extrem: Right lower extremity: normal to inspection Left lower extremity: normal to inspection Objective Data Active Medications Albuterol Sulfate (Albuterol Sulfate (0.083%) 2.5 Mg/3 Ml Vial.Neb) 2.5 mg INHALE ONCE PRN PRN Reason: Wheezing Stop: 08/30/23 13:34 Fentanyl (Fentanyl Citrate/Pf 100 Mcg/2 Ml Vial) 25 mcg IVPUSH Q5M PRN; Protocol PRN Reason: Pain, Moderate(Pain Scale 4-6) Stop: 08/30/23 13:34 Hydromorphone HCl (Hydromorphone Hcl 0.5 Mg/0.5 Ml Syringe) 0.25 mg IVPUSH Q5M PRN; Protocol PRN Reason: Pain, Severe (Pain Scale 7-10) Stop: 08/30/23 13:34 Lactated Ringer's (Lr) 1,000 mls @ 100 mls/hr IVCONT .Q10H [facility] Last Admin: 08/30/23 07:00 Dose: 100 mls/hr Documented By: EVELIO Lactated Ringer's (Lr) 1,000 mls @ 999 mls/hr IV .Q1H1M RAEGAN Stop: 08/30/23 08:00 Last Admin: 08/30/23 07:00 Dose: 999 mls/hr Documented By: EVELIO Ondansetron HCl (Ondansetron Hcl 4 Mg/2 Ml Vial) 4 mg IVPUSH ONCE PRN PRN Reason: Nausea and Vomiting Stop: 08/30/23 13:34 Labs 08/31/23 05:14 08/31/23 05:14 Procedures Date of Service Date of Service: 08/31/23 Progress Note: A&P Assessment and plan (1) Morbid obesity: Status: Acute Assessment and Plan: s/p laparoscopic sleeve gastrectomy, lysis of adhesions, excision of two stromal tumors, and gastropexy Doing well Will check am labs and if OK the patient will be discharged home (2) HTN (hypertension), benign: Status: Acute (3) Hyperlipidemia: Status: Acute (4) Osteoporosis: Status: Acute (5) Hypocalcemia: Status: Acute (6) Wheelchair dependence: Status: Acute (7) Sleep apnea treated with continuous positive airway pressure (CPAP): Status: Acute (8) DJD (degenerative joint disease): Status: Acute (9) GERD (gastroesophageal reflux disease): Status: Acute (10) LVH (left ventricular hypertrophy): Status: Acute (11) Left atrial dilation: Status: Acute (12) 1st degree AV block: Status: Acute (13) Liver fibrosis: Status: Acute (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 Quality Stroke Does the patient have a stroke diagnosis?: No VTE Prior VTE?: No VTE Risk Level:: Surgical - moderate VTE Device Contraindication: N/A - Device Ordered VTE Drug Contraindication: Treatment Not Indicated
--- NOTE | 2023-08-30 11:11 | PHA.MEDREC ---
Pharmacy Consult ? Medication Reconciliation RN has completed the medication reconciliation, pharmacy reviewed.
--- NOTE | 2023-08-30 11:14 | PM.DS ---
DS: Providers Provider Date of Service: 08/31/23 Date of admission: 08/30/23 05:49 Primary care physician: Karla Roche MD DS: Diagnosis Discharge Diagnosis (1) Morbid obesity: Status: Acute (2) HTN (hypertension), benign: Status: Acute (3) Hyperlipidemia: Status: Acute (4) Osteoporosis: Status: Acute (5) Hypocalcemia: Status: Acute (6) Wheelchair dependence: Status: Acute (7) Sleep apnea treated with continuous positive airway pressure (CPAP): Status: Acute (8) DJD (degenerative joint disease): Status: Acute (9) GERD (gastroesophageal reflux disease): Status: Acute (10) LVH (left ventricular hypertrophy): Status: Acute (11) Left atrial dilation: Status: Acute (12) 1st degree AV block: Status: Acute (13) Liver fibrosis: Status: Acute (14) Stromal tumor of the stomach: Status: Acute (15) Congenital intra-abdominal adhesions: Status: Acute (16) S/P laparoscopic sleeve gastrectomy: Status: Acute DS: Summary Hospital Course Hospital Course: ADMITTING DIAGNOSIS: morbid obesity,?1st degree AV block, LVH, left atrial dilation, abnormal EKG, HTN, JOYCE, HLD, hx VTE, DJD, osteoporosis, wheelchair bound, GERD ? DISCHARGE DIAGNOSIS: same, s/p laparoscopic sleeve gastrectomy and gastropexy ? PAST SURGICAL HISTORY:?parathyroidectomy ? 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 DISCHARGE SUMMARY: ? History of Present Illness: ? The patient is a? 78? year-old woman with a BMI of? ?45.5 ? kg/m2 and associated co-morbidities as described above. The patient had extensive work-up, lost? 42.2? lbs preoperatively and was electively scheduled for laparoscopic, possible open sleeve gastrectomy and gastropexy. Risks and complications of the surgery were discussed with the patient in advance, particularly the possibility of , pulmonary embolism, anastomotic leak, bleeding, bowel injury, GERD, cardiac, renal or pulmonary complications. The patient understood all the risks and was in agreement with the surgical plan. ? Hospital Course: ? 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 Postoperatively, the patient was transferred to the surgical floor. The patient received IV Acetaminophen and IV dilaudid for pain control. Patient was started on bariatric phase 1 diet POD #0. On postoperative day one, the patient was feeling well without nausea, vomiting, fevers, or tachycardia. The patient had some mild incisional pain and the abdomen was soft.? ? On the morning of postoperative day one, the patient was continued on 1 ounce of water or ice every half hour. During the day, the patient did fairly well, having some incisional pain, but able to ambulate adequately and to tolerate liquids well. ? Since the patient is doing well, we decided that the patient was ready to be discharged. The patient was given instructions to follow-up with me next week and to call my office for any fever over 101, persistent abdominal pain, nausea, vomiting, GERD, symptoms of DVT such as calf tenderness, or leg swelling, or pulmonary embolism such as chest pain or shortness of breath.? The patient was also instructed to drink 40-60 ounces of liquids per day using the 1-ounce cups. The patient had been given prescriptions for Tylenol for pain, Zofran prn for nausea, and pantoprazole and carafate previously. The patient was encouraged to ambulate and use the incentive spirometer. The patient was allowed to shower, but no baths, and encouraged to stay active at home. All of these instructions were given to the patient personally. All questions were answered and the patient understood all instructions, the instructions were also given to the patient in print. Time Attestation Discharge Coordination Time (in mins): 30 Quality: Safe Use of Opioids Does Pt have an Active Cancer Diagnosis on the Problem List?: No Quality: Stroke Does the patient have a stroke diagnosis?: No Physical Exam Vital Signs: Vital Signs: Last Vital Signs Temp 98.9 F 08/30/23 10:59 Pulse 67 08/30/23 11:09 Resp 14 08/30/23 11:09 BP 142/76 H 08/30/23 11:09 Pulse Ox 100 08/30/23 11:09 O2 Del Method Nasal Cannula wit h Capnography 08/30/23 11:09 O2 Flow Rate 3 08/30/23 11:09 BMI result Body Mass Index 45.5 DS: Data Data Completed and Pending Pending studies at discharge: Pending at discharge 08/30/23 10:12 Surgical [PTH] Routine 08/30/23 10:20 Surgical [PTH] Routine Discharge Plan Discharge Anticipated Discharge Date/Time: 08/31/23 10:00 Patient Disposition: Home, Self-Care Discharge Diagnosis: s/p laparoscopic sleeve gastrectomy with gastropexy and 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 Referrals: Karla Roche MD [Primary Care Provider] - 1 Week Discharge Medications: Continued Celebrate 4 in 1 protein powder See Rx Instructions .ROUTE .COMPLEX Qty: 2 3RF Rx Instructions: Scoops per shake per day will be under the direction of Dr Ding; alendronate 70 mg tablet 70 mg PO QWEEK acetaminophen 650 mg tablet extended release 650 - 1,300 mg PO TID PRN (Reason: Pain) pantoprazole 40 mg tablet,delayed release (DR/EC) 40 mg PO DAILY Qty: 90 0RF sucralfate 100 mg/mL suspension 10 ml PO BID Qty: 600 2RF ondansetron 4 mg tablet,disintegrating 4 mg PO Q12H Qty: 20 0RF Rx Instructions: Only take one every 12 hours as needed if you have nausea atorvastatin 10 mg tablet 10 mg PO QAM tramadol 50 mg tablet 50 mg PO Q12H PRN (Reason: Pain) Held fondaparinux 2.5 mg/0.5 mL syringe 2.5 mg subcut Q24H Qty: 5 2RF Hold Instructions: Resume on 09/02/23. furosemide 20 mg tablet 20 mg PO BID Hold Instructions: Resume on 09/01/23. Check your blood pressure every morning as soon as you wake up and send it to Dr. Ding. Do no take the blood pressure medication if the blood pressure is below 120/70. Wait every day to hear back from Dr. Ding before you take the medication. amlodipine 10 mg tablet 10 mg PO QAM Hold Instructions: Resume on 09/01/23. Check your blood pressure every morning as soon as you wake up and send it to Dr. Ding. Do no take the blood pressure medication if the blood pressure is below 120/70. Wait every day to hear back from Dr. Ding before you take the medication. Discontinued Ensure Liquid 1 ea PO TID Qty: 5688 2RF calcium citrate-vitamin D3 315 mg-5 mcg (200 unit) tablet 2 tab PO BID polyethylene glycol 3350 [Miralax] 17 gram powder in packet 17 g PO DAILY Qty: 14 0RF Rx Instructions: Mix each packet with 8oz of water, Crystal light, or Gatorade zero, or Propel and do 7 packets on 08/28/23 and another 7 packets on 08/29/23 aspirin 81 mg tablet,delayed release (DR/EC) 81 mg PO QAM Discharge Orders: Discharge Order (Routine); Ordered 08/31/23 Ordered By: Jose Ding Activity on Discharge: No heavy lifting Stand Alone Forms: Patient Portal Discharge page Print Language: Japanese Care Plan Goals: weight loss Health Concerns: morbid obesity Plan of Treatment: No tub baths, sex or returning to work until discussed at first post op appointment. No alcohol, tobacco or illegal drug use. Continue to use incentive spirometer hourly while awake. Walk in home for 5- 10 minutes every 2 hours during the first week. Wear abdominal binder with activity. Follow all meal plan instructions from your bariatric surgeon. Review bariatric handbook and call with any questions. Discharge Instructions 1. Please call your doctor or come back to the emergency room should any new symptoms arise. 2. Activity: abstain from alcohol,? limited stair climbing, no bending, no driving, no exercise, no illicit substances, no lifting, no sex, no tub bath, no work. 4. Diet: follow your bariatric surgeons recommendations for advancing diet. 5. Dressing Change/Wound Care: Your incisions are covered with waterproof dressings. You can shower with these and pat dry. Do not rub over dressings or incisions. If the area is tender, you may apply an ice pack for short intervals (no more than 20 minutes on, followed by at least 20 minutes off). Do not apply heat. Do not use creams, lotions, or topical antibiotics unless instructed to do so by your surgeon. 6. Call your doctor if: - Your temperature exceeds 101.5 F - You experience excessive pain or swelling - You have an unexpected reaction to medication - You have excessive bleeding - You experience continued vomiting/nausea - Your incision begins to separate - Your incision shows signs of infection such as increased redness, swelling, excessive pain, heat, or drainage (light blood or clear fluid is normal) General instructions: No lifting greater than 10 lbs for the next 6 weeks[address] within 24 hours of taking narcotic pain medications. If you do not move your bowels in the next 2 days, please take milk of magnesia over the counter. Please follow the post op diet and do not advance your diet until you are seen in the office in about 2 weeks. Please walk around your home every hour or two to prevent blood clots from forming in your legs. You do not need to wake from sleeping to walk. Please sleep in a bed or couch to prevent kinking at the hips and knees. Please take your incentive spirometer (your lung supervisor drying and softening) home with you and use it for the next few days to prevent pneumonias. You may shower, no hot tubs, baths or swimming pools. Please call the office with any questions or concerns such as increasing abdominal pain, fever, chills, shortness of breath, chest pain, leg pain or swelling, or redness or drainage from your incisions. Please make sure you are consuming 40-60 ounces of total fluids per day. Avoid all carbonation. Do not hesitate to contact the office with any questions at . The patient's medical history has been reviewed and they are considered low risk for post op DVT and therefore DVT prophylaxis is not considered necessary. Travel after surgery was reviewed. The patient has not disclosed any travel plans during the first 30 days after surgery and they have been advised that within the first 30 days after surgery any bus, plane, train or car travel over 2 hours in duration is contraindicated due to the possibility of developing blood clots from immobility. Any travel, needs to include periods of ambulation of 10 minutes in duration every 2 hours.? The patient was instructed to discuss any plans for travel during this period with their bariatric surgeon. 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
[2023-08-30] MEDS: Atorvastatin Calcium 10 MG TABLET PO (13:48)
[2023-08-30] MEDS: ceFAZolin Sodium/Dextrose,Iso 2 GM/50 ML PIGGYBACK IV (13:49)
[2023-08-30] MEDS: Acetaminophen 1,000 MG/100 ML PIGGYBACK 16.7 MG IV ×2 (15:59→21:22)
[2023-08-30 16:48] LABS: Hemoglobin 13.4 g/dl (12.0-16.0)
[2023-08-30 17:13] LABS: Anion Gap 21 (12-20); Blood Urea Nitrogen 23 mg/dL (9-16); Calcium 8.9 mg/dL (8.4-10.2); Carbon Dioxide 18 mmol/L (22-29); Chloride 102 mmol/L (96-108); Creatinine Clr Calc Pharmacy 66.1; Estimated Glomerular Filt Rate 55; Glucose Random 158 mg/dL (60-115); Potassium 3.6 mmol/L (3.3-5.1); Sodium 137 mmol/L (135-145)
[2023-08-30] MEDS: 0.9 % Sodium Chloride Flush 3 ML SYRINGE IVFLUSH (19:45)
[2023-08-30] MEDS: Famotidine/PF 20 MG/2 ML VIAL IVPUSH (19:45)
[2023-08-31 02:22] VITALS: O2SAT 93
[2023-08-31] MEDS: Acetaminophen 1,000 MG/100 ML PIGGYBACK 16.7 MG IV (03:18)
[2023-08-31 04:00] VITALS: BP 129/73; PULSE 68; RESP 18; TEMP 36.6; O2SAT 94
[2023-08-31 05:36] LABS: MANUAL DIFF FLAG NO
[2023-08-31 05:51] LABS: Hematocrit 36.6 % (37.0-47.0); Imm Gran Abs Auto 0.03 X10*3/uL (0.00-0.03); Imm Gran Pct Auto 0.5 % (0.0-0.4); Lymphocytes Absolute Auto 0.6 X10*3/uL (1.2-4.9); Lymphocytes Percent Auto 10.8 % (20-40); Mean Corpuscular HGB Conc 32.8 g/dl (31.0-35.0); Mean Corpuscular Volume 73.2 fL (80.0-98.0); Monocytes Absolute Auto 0.2 X10*3/uL (0.1-1.2); Monocytes Percent Auto 3.7 % (2-11); Neutrophils Absolute Auto 5.1 x10*3/uL (2.0-8.3); Platelet Count 195 X10*3/uL (160-400); Red Cell Distribution Width 19.3 % (11.0-16.0)
[2023-08-31 05:58] LABS: Anion Gap 14 (12-20); Blood Urea Nitrogen 19 mg/dL (9-16); Calcium 8.2 mg/dL (8.4-10.2); Carbon Dioxide 25 mmol/L (22-29); Chloride 103 mmol/L (96-108); Creatinine Clr Calc Pharmacy 79.9; Estimated Glomerular Filt Rate > 60; Glucose Random 129 mg/dL (60-115); Potassium 3.8 mmol/L (3.3-5.1); Sodium 138 mmol/L (135-145)
--- NOTE | 2023-08-31 07:13 | PC.NURSE ---
Fishman catheter removed at 0710, purewick system put in place.
[2023-08-31 08:00] VITALS: BP 137/69; PULSE 72; RESP 18; TEMP 36.6; O2SAT 90
--- NOTE | 2023-08-31 08:56 | HO.POSTANES ---
Post Anesthesia Evaluation Post Anesthesia Evaluation Date of Service: 08/30/23 Vital Signs: Vital Signs Temp Pulse Resp BP Pulse Ox O2 Del Method 08/31/23 08:00 97.8 F 72 18 137/69 90 L Room Air 08/31/23 07:33 Room Air 08/31/23 04:00 97.8 F 68 18 129/73 94 CPAP 08/31/23 02:22 93 CPAP 08/30/23 23:46 98.0 F 71 19 137/67 90 L Room Air Anesthesia: General Endotracheal-GETA Mental Status: Awake Pain Control: Satisfactory Nausea/Vomiting: None Hydration: Adequate Anesthesia-Related Issues: No Anes. Related Issues
[2023-08-31] MEDS: Famotidine/PF 20 MG/2 ML VIAL IVPUSH (10:46)
[2023-08-31] MEDS: Atorvastatin Calcium 10 MG TABLET PO (10:46)
[2023-08-31] MEDS: Lactated Ringers 1,000 ML 100 ML IVCONT (10:46)
[2023-08-31 12:00] VITALS: BP 142/65; PULSE 72; RESP 18; TEMP 36.7; O2SAT 94
--- NOTE | 2023-08-31 12:38 | MHC.CM.PN ---
pt dcd home self care amb booked for 2
== END 2023-08-31 13:59 | disposition home or self-care (01) | DRG 620 ==
LOC: HO.SSSA 11:12 → HO.S3 11:45
PROVIDERS: Physician Assistant Surgical; Admitting Provider Surgery; PCP Student in an Organized Health Care Education/Training Program; Visit Provider Surgery
PROC: 0DB64Z3 Excision of Stomach, Percutaneous Endoscopic Approach, Vertical (ICD-10-PCS; CPT 43845; principal; 2023-08-30 07:30)
DX: E66.01 Morbid (severe) obesity due to excess calories (principal); Q43.3 Congenital malformations of intestinal fixation; G47.33 Obstructive sleep apnea (adult) (pediatric); E78.5 Hyperlipidemia, unspecified; M19.90 Unspecified osteoarthritis, unspecified site; I11.9 Hypertensive heart disease without heart failure; M81.0 Age-related osteoporosis without current pathological fracture; I44.0 Atrioventricular block, first degree; Z99.3 Dependence on wheelchair; Z68.42 Body mass index [BMI] 45.0-49.9, adult; Z79.899 Other long term (current) drug therapy
CPT/HCPCS: 36415; 80048; 80053; 80061; 83036; 83525; 84443; 85014; 85018; 85025; 85610; 85730; 86140; 86850; 86900; 86901; 88304; 88305; 88307; 88341; 88342; A4649; C1758; C9088; C9145; J0131; J0690; J1100; J1596; J2250; J2371; J2405; J2704; J2795; J3010; J7120

== ENCOUNTER → 2023-08-30 05:49 | Outpatient (BNV) | payer OTHER, SELFPAY | PROVIDERS: Admitting Provider Surgery; PCP Student in an Organized Health Care Education/Training Program; Visit Provider Surgery | DX: E66.01 Morbid (severe) obesity due to excess calories (principal); Z68.42 Body mass index [BMI] 45.0-49.9, adult; Q43.3 Congenital malformations of intestinal fixation; Z98.84 Bariatric surgery status; Z99.3 Dependence on wheelchair | CPT/HCPCS: 43659; 43775; 99024; 99499 ==

== ENCOUNTER 2023-09-07 11:58 | Outpatient (AMB) | payer OTHER, SELFPAY ==
[2023-09-07 12:17] VITALS: BP 159/77; PULSE 56; TEMP 35.6; O2SAT 90
--- NOTE | 2023-09-07 12:17 | A.OFFVIS_ITS ---
VS Expanded 09/07/23 12:17 BP 159/77 H Blood Pressure Location Rt brachial Blood Pressure Position Sitting Pulse 56 Pulse Source Pulse Oximeter Temp 96.0 F L Temperature Source Tympanic Pulse Oximetry 90 L Oxygen Delivery Method Room Air Weight 281 lb 3.2 oz Intake Visit Reasons: (OV) PO LSG 08/30/23 Allergies lisinopril Allergy (Severe, Uncoded 08/30/23 06:17) Cough HPI Comments Details: Very pleasant 78-year-old female returns to the office today in follow-up. She is 8 days status post sleeve gastrectomy performed on 08/30/2023. She is accompanied by her daughter who helps to take care of her. She is tolerating 2 celebrate 4 in 1 shakes with 2 scoops each and 2 Orgain shakes with 2 scoops eats and approximately 24 oz of water. She is moved her bowels. Offers no complaints. [facility] Medical History (Updated 09/01/23 @ 00:01 by Background Daemon) VTE (venous thromboembolism) Pre-op evaluation GERD (gastroesophageal reflux disease) DJD (degenerative joint disease) Sleep apnea treated with continuous positive airway pressure (CPAP) Dyspnea Pulmonary hypertension Personal history of COVID-19 (~04/2023) Bilateral knee pain Osteoporosis Elevated cholesterol HTN (hypertension) JOYCE on CPAP CTS (carpal tunnel syndrome) Limited mobility Aortic aneurysm without rupture Surgical History (Updated 09/01/23 @ 00:01 by Background Daemon) Hx of parathyroidectomy Family History Mother No problems noted. Father No problems noted. Brother Hypertension Daughter Hypertension Social History Household Members: Family Household Members Other:: lives with her daughter and grandson and sister Housing: House Are you a primary skin care instructor to a significant other at home: No Do you presently have visiting nurse or other home services: Yes (physical therapy) 75 years or older and lives alone: No Alcohol intake: never Comment: confined to bed at home Patient Tobacco Use Status: Never used Tobacco service: No Physical Exam Vital Signs: Last Vital Signs Temp 96.0 F L 09/07/23 12:17 Pulse 56 09/07/23 12:17 BP 159/77 H 09/07/23 12:17 Pulse Ox 90 L 09/07/23 12:17 Oxygen Delivery Method Room Air 09/07/23 12:17 GI Inspection: Yes incision (Clean, dry, intact.) Assessment & Plan Assessment & Plan (1) S/P laparoscopic sleeve gastrectomy: Code(s): Z98.84 - Bariatric surgery status Category: Surgical Plan: POD 8 s/p LSG on 08/30/[address] Ding Weight loss prior to surgery was 36.9 pounds or 11.3 % TBWL. Original weight on 11/11/2022 was 324.2 pounds and op weight was 287.3 pounds. Be sure to text Dr Ding exactly 1 week after surgery your weight from your home scale so he can adjust your meal plan. Continue meal plan until f/u shobha Eduardo in 2 weeks May shower, no submersion in bath for another week Continue abdominal binder with activity and exercise for the next 2 weeks. Exercise prior to surgery was physical therapy and chair exercises and may resume No abdominal exercises for 6 weeks post operatively Will be emailed link to post op video for review Reminded of the pace of drinking, 2 mL per minute, 1 oz/15 min.
== END 2023-09-07 12:38 | disposition home or self-care (01) ==
PROVIDERS: PCP Student in an Organized Health Care Education/Training Program; Visit Provider Physician Assistant Surgical
DX: Z98.84 Bariatric surgery status (principal)
CPT/HCPCS: 99024

== ENCOUNTER → 2023-09-07 11:58 | Outpatient (BNVA) | payer OTHER, SELFPAY | PROVIDERS: PCP Student in an Organized Health Care Education/Training Program; Visit Provider Physician Assistant Surgical | DX: Z48.815 Encounter for surgical aftercare following surgery on the digestive system (principal); Z98.84 Bariatric surgery status | CPT/HCPCS: 99212 ==

== ENCOUNTER 2023-09-20 15:21 | Outpatient (AMB) | payer OTHER, SELFPAY ==
--- NOTE | 2023-09-19 11:02 | A.OFFVIS_ITS ---
Intake Visit Reasons: (TV) PO LSG 08/30/23 Allergies lisinopril Allergy (Severe, Uncoded 08/30/23 06:17) Cough HPI Comments Details: This?a?78?yo female who is s/p LSG without hiatal hernia repair on?08/30/2023. Presents for 3 week post op visit. Weight today is [] pounds, with a BMI of []. There has been a [] pound weight loss,(initial weight 324.2 pounds) since starting the program on 11/11/2022 reflecting a []% total body weight loss and a weight loss of [] pounds since surgery (operative weight 287.3 pounds) reflecting a []% TBWL since surgery. No complaints of nausea, emesis, abdominal pain or reflux. Reports infrequent but normal bowel movements every [] days and uses stool softeners regularly. Original weight on 11/11/2022 was 324.2 pounds and op weight was 287.3 pounds. Present meal plan includes: 10am - 30 gram protein shake 2pm- 30 gram protein shake 6-7 pm - dinner of 3 oz lean protein and 3 oz vegetables She will occasionally have a protein bar or yogurt in the evening. ? All meals last 20 - 30 minutes and does not drink and eat at the same time. ? Exercise routine includes: Cardio - 4d/ week at the gym on the treadmill with speed of 3.5 and incline of 5-11. she marshall 425 calories on most days. Weights - 3 d/ week, 20/20/60 lbs, 15 reps and 3 sets each. Heartburn symptoms? [] Score 0-5: 0=no symptoms, 1=noticeable but not bothersome (slight or occasional), 2=noticeable, bothersome but not daily, 3=bothersome and daily, 4=affects daily activities, 5=incapacitating, unable to do daily activities How bad is the heartburn: [] Heartburn when lying down: [] Heartburn when standing up: [] Heartburn after meals: [] Does heartburn change your diet: [] Does heartburn wake you up from sleep: [] Do you have difficulty swallowing: [] Do you have pain with swallowing: [] If you take medication for reflux, does this affect your daily life: [] Total score: [] PFSH Medical History (Updated 09/08/23 @ 00:03 by Background Daemon) VTE (venous thromboembolism) Pre-op evaluation GERD (gastroesophageal reflux disease) DJD (degenerative joint disease) Sleep apnea treated with continuous positive airway pressure (CPAP) Dyspnea Pulmonary hypertension Personal history of COVID-19 (~04/2023) Bilateral knee pain Osteoporosis Elevated cholesterol HTN (hypertension) JOYCE on CPAP CTS (carpal tunnel syndrome) Limited mobility Aortic aneurysm without rupture Surgical History (Updated 09/08/23 @ 00:03 by Background Daemon) Hx of parathyroidectomy Family History Mother No problems noted. Father No problems noted. Brother Hypertension Daughter Hypertension Social History Household Members: Family Household Members Other:: lives with her daughter and grandson and sister Housing: House Are you a primary medicare contact specialist to a significant other at home: No Do you presently have visiting nurse or other home services: Yes (physical therapy) 75 years or older and lives alone: No Alcohol intake: never Comment: confined to bed at home Patient Tobacco Use Status: Never used Tobacco service: No
[2023-09-20 15:21] VITALS: BMI 45.4
--- NOTE | 2023-09-20 15:21 | A.OFFVIS_ITS ---
VS Expanded 09/20/23 15:21 Height 5 ft 5 in Weight 273 lb BMI 45.4 Intake Visit Reasons: (TV) PO LSG 08/30/23 Allergies lisinopril Allergy (Severe, Uncoded 08/30/23 06:17) Cough HPI Comments Details: This?a?78?yo female who is s/p LSG without hiatal hernia repair on?08/30/23. Presents for 3 week post op visit. Weight today is 273 pounds, with a BMI of 45.4. There has been a 51.2 pound weight loss,(initial weight 324.2 pounds) since starting the program on 11/11/22 reflecting a 15.7% total body weight loss and a weight loss of 14.3 pounds since surgery (operative weight 287.3 pounds) reflecting a 4.9% TBWL since surgery. No complaints of nausea, emesis, abdominal pain or reflux. Reports infrequent but normal bowel movements every [] days and uses stool softeners regularly. Original weight on 11/11/2022 was 324.2 pounds and op weight was 287.3 pounds. Present meal plan includes: Celebrate 4 in 1, 2 scoops in 8 oz almond milk, 8-10, 12-2 Orgain 2 scoops w 8 oz almond milk, 2-4, 6-8 drinking 32-48 oz water ? Exercise routine includes: [employer] videos tg max wheelchair videos, 4 x per week. 30-45 min each [facility] Medical History (Updated 09/08/23 @ 00:03 by Background Danny) VTE (venous thromboembolism) Pre-op evaluation GERD (gastroesophageal reflux disease) DJD (degenerative joint disease) Sleep apnea treated with continuous positive airway pressure (CPAP) Dyspnea Pulmonary hypertension Personal history of COVID-19 (~04/2023) Bilateral knee pain Osteoporosis Elevated cholesterol HTN (hypertension) JOYCE on CPAP CTS (carpal tunnel syndrome) Limited mobility Aortic aneurysm without rupture Surgical History (Updated 09/08/23 @ 00:03 by Background Danny) Hx of parathyroidectomy Family History Mother No problems noted. Father No problems noted. Brother Hypertension Daughter Hypertension Social History Household Members: Family Household Members Other:: lives with her daughter and grandson and sister Housing: House Are you a primary day care home provider to a significant other at home: No Do you presently have visiting nurse or other home services: Yes (physical therapy) 75 years or older and lives alone: No Alcohol intake: never Comment: confined to bed at home Patient Tobacco Use Status: Never used Tobacco service: No Telehealth Telehealth Telehealth Platform: Telephone Location of provider rendering services: practice address Location of patient: address on file Patient Identification confirmed using: Name, : Yes Telehealth method: voice only Patient verbally consented to treatment: Yes Patient verbally consented to billing insurance company: Yes Patient informed of any privacy concerns related to visit: Yes Minutes spent on Phone/Video with Pt.: 15 Assessment & Plan Assessment & Plan (1) S/P laparoscopic sleeve gastrectomy: Code(s): Z98.84 - Bariatric surgery status Category: Surgical Plan: Phone appointment conducted with patient's daughter,Carolyn, who is her advertising operations coordinator and has accompanied her to all of her appointments. Additionally, the patient speaks Swahili. At this time, we will continue current meal plan. Encouraged her to increase exercises to daily. Text with any questions or concerns and return to clinic in 1 month
== END 2023-09-20 15:46 | disposition home or self-care (01) ==
LOC: HO.HBS 15:21
PROVIDERS: PCP Student in an Organized Health Care Education/Training Program; Visit Provider Physician Assistant Surgical
DX: Z98.84 Bariatric surgery status (principal)
CPT/HCPCS: 99024

== ENCOUNTER → 2023-09-20 15:21 | Outpatient (BNVA) | payer OTHER, SELFPAY | PROVIDERS: PCP Student in an Organized Health Care Education/Training Program; Visit Provider Physician Assistant Surgical | DX: Z48.815 Encounter for surgical aftercare following surgery on the digestive system (principal); Z98.84 Bariatric surgery status | CPT/HCPCS: 99212 ==

== ENCOUNTER 2023-10-19 15:13 | Outpatient (AMB) | payer OTHER, SELFPAY ==
[2023-10-19 10:57] VITALS: BMI 44.8
--- NOTE | 2023-10-19 10:57 | A.OFFVIS_ITS ---
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: No Allergies lisinopril Allergy (Severe, Uncoded 08/30/23 06:17) Cough Medication List - Last Reconciled 10/19/23 by BUZZ Vital acetaminophen ER 650 - 1,300 mg PO TID PRN alendronate 70 mg PO QWEEK amlodipine 10 mg PO QAM atorvastatin 10 mg PO QAM [Celebrate 4 in 1 protein powder Scoops per shake per day will be under the direction of Dr Ding; ] fondaparinux 2.5 mg (0.5 mL) subcut Q24H furosemide 20 mg PO BID ondansetron 4 mg PO Q12H pantoprazole 40 mg PO DAILY sucralfate 10 mL PO BID tramadol 50 mg PO Q12H PRN HPI Comments Details: This?a?78?yo female who is s/p LSG without hiatal hernia repair on?08/30/23. Presents for 6 week post op visit. Weight today is 269 pounds, with a BMI of 44.8. There has been a 55.2 pound weight loss,(initial weight 324.2 pounds) since starting the program on 11/11/22 reflecting a 17% total body weight loss and a weight loss of 18.3 pounds since surgery (operative weight 287.3 pounds) reflecting a 6.3% TBWL since surgery. No complaints of nausea, emesis, abdominal pain or reflux. Reports infrequent but normal bowel movements every 2- 3 days and uses stool softeners regularly. Per her daughter her mom is moving more easily and there was a misunderstanding and she was getting an extra shake of orgain for the last 2 weeks. Present meal plan includes: Celebrate 4 in 1, 2 scoops in 8 oz almond milk, 8-10, 11-1 Orgain 2 scoops w 8 oz almond milk, 2-4 ZP bar 5-8 drinking 32-48 oz water ? Exercise routine includes: [employer] videos tg santana wheelchair videos, 5 x per week. 30-45 min each [facility] Medical History (Updated 09/08/23 @ 00:03 by Background Daemon) VTE (venous thromboembolism) Pre-op evaluation GERD (gastroesophageal reflux disease) DJD (degenerative joint disease) Sleep apnea treated with continuous positive airway pressure (CPAP) Dyspnea Pulmonary hypertension Personal history of COVID-19 (~04/2023) Bilateral knee pain Osteoporosis Elevated cholesterol HTN (hypertension) JOYCE on CPAP CTS (carpal tunnel syndrome) Limited mobility Aortic aneurysm without rupture Surgical History (Updated 09/08/23 @ 00:03 by Background Danny) Hx of parathyroidectomy Family History Mother No problems noted. Father No problems noted. Brother Hypertension Daughter Hypertension Social History Household Members: Family Household Members Other:: lives with her daughter and grandson and sister Housing: House Are you a primary group care worker to a significant other at home: No Do you presently have visiting nurse or other home services: Yes (physical therapy) 75 years or older and lives alone: No Alcohol intake: never Comment: confined to bed at home Patient Tobacco Use Status: Never used Tobacco service: No Telehealth Telehealth Telehealth Platform: Telephone Location of provider rendering services: practice address Location of patient: address on file Patient Identification confirmed using: Name, : Yes Telehealth method: voice only Patient verbally consented to treatment: Yes Patient verbally consented to billing insurance company: Yes Patient informed of any privacy concerns related to visit: Yes Minutes spent on Phone/Video with Pt.: 15 Assessment & Plan Assessment & Plan (1) S/P laparoscopic sleeve gastrectomy: Code(s): Z98.84 - Bariatric surgery status Category: Surgical Plan: Appointment was made with patient's daughter who is her primary caregiver as well, patient speaks only swahili. The meal plan was clarified and patient is supposed to be only doing 3 shakes per day not 4. We went over the plan together and everything is now clear. I did encourage her to increase exercise to daily. We will have her return to the office in 1 month.
== END 2023-10-19 15:28 | disposition home or self-care (01) ==
LOC: HO.HBS 15:13
PROVIDERS: PCP Student in an Organized Health Care Education/Training Program; Visit Provider Physician Assistant Surgical
DX: Z98.84 Bariatric surgery status (principal)
CPT/HCPCS: 99024

== ENCOUNTER → 2023-10-19 15:13 | Outpatient (BNVA) | payer OTHER, SELFPAY | PROVIDERS: PCP Student in an Organized Health Care Education/Training Program; Visit Provider Physician Assistant Surgical | DX: Z48.815 Encounter for surgical aftercare following surgery on the digestive system (principal); Z98.84 Bariatric surgery status | CPT/HCPCS: 99212 ==

== ENCOUNTER 2023-11-22 15:41 | Outpatient (AMB) | payer OTHER, SELFPAY ==
--- NOTE | 2023-11-22 09:50 | A.OFFVIS_ITS ---
VS Expanded 11/22/23 09:51 Height 5 ft 5 in Weight 260 lb BMI 43.3 Intake Visit Reasons: (TV) PO LSG 08/30/23 Allergies lisinopril Allergy (Severe, Uncoded 08/30/23 06:17) Cough HPI Comments Details: This?a?78?yo female who is s/p LSG without hiatal hernia repair on?08/30/23. Presents for 3 month post op visit. Weight today is 260 pounds, with a BMI of 43.3. There has been a 64.2 pound weight loss,(initial weight 324.2 pounds) since starting the program on 11/11/22 reflecting a 19.8% total body weight loss and a weight loss of 27.3 pounds since surgery (operative weight 287.3 pounds) reflecting a 9.5% TBWL since surgery. No complaints of nausea, emesis, abdominal pain or reflux. Reports infrequent but normal bowel movements every 2- 3 days and uses stool softeners regularly. Per her daughter her mom is doing fantastic. She is happy and has increased mobility. She is seeing her ortho surgeon on Tuesday to discuss possible surgery. Doesn't like celebrate Present meal plan includes: Celebrate 4 in 1, 2 scoops in 8 oz almond milk, 8-10, Orgain 2 scoops w 8 oz almond milk, 2-4 ZP bar 5-8 australian yogurt drinking 32-48 oz water ? Exercise routine includes: [employer] videos tg [employer] wheelchair videos, 6 x per week. 30-45 min each [facility] Medical History (Updated 09/08/23 @ 00:03 by Background Daemon) VTE (venous thromboembolism) Pre-op evaluation GERD (gastroesophageal reflux disease) DJD (degenerative joint disease) Sleep apnea treated with continuous positive airway pressure (CPAP) Dyspnea Pulmonary hypertension Personal history of COVID-19 (~04/2023) Bilateral knee pain Osteoporosis Elevated cholesterol HTN (hypertension) JOYCE on CPAP CTS (carpal tunnel syndrome) Limited mobility Aortic aneurysm without rupture Surgical History (Updated 09/08/23 @ 00:03 by Background Daemon) Hx of parathyroidectomy Family History Mother No problems noted. Father No problems noted. Brother Hypertension Daughter Hypertension Social History Household Members: Family Household Members Other:: lives with her daughter and grandson and sister Housing: House Are you a primary child care leader to a significant other at home: No Do you presently have visiting nurse or other home services: Yes (physical therapy) 75 years or older and lives alone: No Alcohol intake: never Comment: confined to bed at home Patient Tobacco Use Status: Never used Tobacco service: No Telehealth Telehealth Telehealth Platform: Telephone Location of provider rendering services: practice address Location of patient: address on file Patient Identification confirmed using: Name, : Yes Telehealth method: voice only Patient verbally consented to treatment: Yes Patient verbally consented to billing insurance company: Yes Patient informed of any privacy concerns related to visit: Yes Minutes spent on Phone/Video with Pt.: 15 Assessment & Plan Assessment & Plan (1) S/P laparoscopic sleeve gastrectomy: Code(s): Z98.84 - Bariatric surgery status Category: Surgical Plan: We will continue current recommended meal plan. Recommend increasing exercise using the [employer] YouTube videos to 45 minutes. She had previously doing 30 minutes 5 days a week and 45 minutes 1 day a week, suggest increasing to 45 minutes 6 days a week. We will have her return to the office in approximately 1 month. Text weekly and with any questions or concerns
[2023-11-22 09:51] VITALS: BMI 43.3
== END 2023-11-22 15:43 | disposition home or self-care (01) ==
LOC: HO.HBS 15:41
PROVIDERS: PCP Student in an Organized Health Care Education/Training Program; Visit Provider Physician Assistant Surgical
DX: Z98.84 Bariatric surgery status (principal)
CPT/HCPCS: 99024

== ENCOUNTER → 2023-11-22 15:41 | Outpatient (BNVA) | payer OTHER, SELFPAY | PROVIDERS: PCP Student in an Organized Health Care Education/Training Program; Visit Provider Physician Assistant Surgical | DX: Z98.84 Bariatric surgery status (principal) | CPT/HCPCS: 99212 ==

== ENCOUNTER 2023-12-29 12:00 | Outpatient (AMB) | payer OTHER, SELFPAY ==
--- NOTE | 2023-12-29 12:11 | MHC.OFFVISWM ---
VS Expanded 12/29/23 12:13 Height 5 ft 5 in Weight 254 lb BMI 42.3 Intake Visit Reasons: (TV) PO LSG 08/30/23 Allergies lisinopril Allergy (Severe, Uncoded 08/30/23 06:17) Cough HPI Comments Details: This?a?78?yo female who is s/p LSG without hiatal hernia repair on?08/30/23. Presents for 4 month post op visit. Weight today is 254 pounds, with a BMI of 42.3. There has been a 70.2 pound weight loss,(initial weight 324.2 pounds) since starting the program on 11/11/22 reflecting a 21.6% total body weight loss and a weight loss of 33.3 pounds since surgery (operative weight 287.3 pounds) reflecting a 11.5% TBWL since surgery. No complaints of nausea, emesis, abdominal pain or reflux. Reports infrequent but normal bowel movements every 2-3 days and uses stool softeners regularly. taking fusion mvi Per her daughter her mom is doing fantastic. She is happy and has increased mobility. She had right TKR on 12/14/23, home recovering Present meal plan includes: Orgain 2 scoops w 8 oz almond milk, 8-10, 3-5 ZP bar or macedonian yogurt 12-2 meal drinking 32-48 oz water ? Exercise routine includes: [employer] videos tg max wheelchair videos, 6 x per week. 30-45 min each [facility] Medical History (Updated 09/08/23 @ 00:03 by Krystal Delgado) VTE (venous thromboembolism) Pre-op evaluation GERD (gastroesophageal reflux disease) DJD (degenerative joint disease) Sleep apnea treated with continuous positive airway pressure (CPAP) Dyspnea Pulmonary hypertension Personal history of COVID-19 (~04/2023) Bilateral knee pain Osteoporosis Elevated cholesterol HTN (hypertension) JOYCE on CPAP CTS (carpal tunnel syndrome) Limited mobility Aortic aneurysm without rupture Surgical History (Updated 12/29/23 @ 12:15 by BUZZ Vital) Status post total right knee replacement Hx of parathyroidectomy Family History Mother No problems noted. Father No problems noted. Brother Hypertension Daughter Hypertension Social History Household Members: Family Household Members Other:: lives with her daughter and grandson and sister Housing: House Are you a primary career resource technician to a significant other at home: No Do you presently have visiting nurse or other home services: Yes (physical therapy) 75 years or older and lives alone: No Alcohol intake: never Comment: confined to bed at home Patient Tobacco Use Status: Never used Tobacco service: No Telehealth Telehealth Telehealth Platform: Telephone Location of provider rendering services: practice address Location of patient: address on file Patient Identification confirmed using: Name, : Yes Telehealth method: voice only Patient verbally consented to treatment: Yes Patient verbally consented to billing insurance company: Yes Patient informed of any privacy concerns related to visit: Yes Minutes spent on Phone/Video with Pt.: 15 Assessment & Plan Assessment & Plan (1) S/P laparoscopic sleeve gastrectomy: Code(s): Z98.84 - Bariatric surgery status Category: Surgical Plan: Patient is doing very well. She is extremely happy with her progress. She was able to get her right total knee replacement done. She will likely have her left done in approximately 3 months. We have adjusted her meal plans slightly to include a meal at night. Continue exercises she is able as well as rehab and recovery from her recent surgery. Text weekly with weights and if any questions or concerns. Return to clinic 1 month.
[2023-12-29 12:13] VITALS: BMI 42.3
== END 2023-12-29 12:35 | disposition home or self-care (01) ==
LOC: HO.HBS 12:17
PROVIDERS: PCP Student in an Organized Health Care Education/Training Program; Visit Provider Physician Assistant Surgical
DX: E66.01 Morbid (severe) obesity due to excess calories (principal); Z68.41 Body mass index [BMI] 40.0-44.9, adult; Z90.3 Acquired absence of stomach [part of]; Z98.84 Bariatric surgery status
CPT/HCPCS: 98967

== ENCOUNTER → 2023-12-29 12:00 | Outpatient (BNVA) | payer OTHER, SELFPAY | PROVIDERS: PCP Student in an Organized Health Care Education/Training Program; Visit Provider Physician Assistant Surgical ==

== ENCOUNTER 2024-02-21 15:00 | Outpatient (AMB) | payer OTHER, SELFPAY ==
--- NOTE | 2024-02-21 15:08 | MHC.OFFVISWM ---
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: No Allergies lisinopril Allergy (Severe, Uncoded 08/30/23 06:17) Cough Medication List - Last Reconciled 02/21/24 by BUZZ Vital acetaminophen ER 650 - 1,300 mg PO TID PRN alendronate 70 mg PO QWEEK amlodipine 10 mg PO QAM atorvastatin 10 mg PO QAM [Celebrate 4 in 1 protein powder Scoops per shake per day will be under the direction of Dr Ding; ] fondaparinux 2.5 mg (0.5 mL) subcut Q24H furosemide 20 mg PO BID ondansetron 4 mg PO Q12H pantoprazole 40 mg PO DAILY sucralfate 10 mL PO BID tramadol 50 mg PO Q12H PRN HPI Comments Details: This?a?78?yo female who is s/p LSG without hiatal hernia repair on?08/30/23. Presents for 6 month post op visit. Weight today is 254 pounds, with a BMI of 42.3. There has been a 70.2 pound weight loss,(initial weight 324.2 pounds) since starting the program on 11/11/22 reflecting a 21.6% total body weight loss and a weight loss of 33.3 pounds since surgery (operative weight 287.3 pounds) reflecting a 11.5% TBWL since surgery. No complaints of nausea, emesis, abdominal pain or reflux. Reports infrequent but normal bowel movements every 2-3 days and uses stool softeners regularly. taking fusion mvi Per her daughter her mom is doing fantastic. She is happy and has increased mobility, walking with ww and very little assistance. She had right TKR on 12/14/23, home recovering. She states her mom is getting more food from her Aunt. Present meal plan includes: Orgain 2 scoops w 8 oz almond milk, 8-10, 3-5 ZP bar or uruguayan yogurt 12-2 meal 7 forks protein and 7 forks veg drinking 32-48 oz water ? Exercise routine includes: [employer] videos tg santana wheelchair videos, 3-4 x per week. 45 min each Any post op complications: none JOYCE: improved DM: never HTN: improved Hyperlipidemia: improved GERD:?0-5 scale ??0 = no symptoms ??1 = symptoms noticeable but not bothersome 2 =symptoms bothersome but not daily ? 3 = symptoms bothersome and daily 4 = symptoms affect daily activities 5 = symptoms are incapacitating, unable to do daily activities ? How bad is the heartburn: 0 ? Heartburn while lying down: 0 ? Heartburn when standing up: 0 ? Heartburn after meals: 0 ? Does heartburn change your diet: 0 ? Does heartburn wake you up from sleep: 0 ? Do you have difficulty swallowin ? Do you have pain with swallowin ? If you take medicine for your reflux, does this affect your daily life: 0 Satisfaction with present condition - satisfied or not satisfied: satisfied [facility] Medical History (Updated 09/08/23 @ 00:03 by Krystal Delgado) VTE (venous thromboembolism) Pre-op evaluation GERD (gastroesophageal reflux disease) DJD (degenerative joint disease) Sleep apnea treated with continuous positive airway pressure (CPAP) Dyspnea Pulmonary hypertension Personal history of COVID-19 (~04/2023) Bilateral knee pain Osteoporosis Elevated cholesterol HTN (hypertension) JOYCE on CPAP CTS (carpal tunnel syndrome) Limited mobility Aortic aneurysm without rupture Surgical History (Updated 12/29/23 @ 12:15 by BUZZ Vital) Status post total right knee replacement Hx of parathyroidectomy Family History Mother No problems noted. Father No problems noted. Brother Hypertension Daughter Hypertension Social History Household Members: Family Household Members Other:: lives with her daughter and grandson and sister Housing: House Are you a primary certified social workers in health care to a significant other at home: No Do you presently have visiting nurse or other home services: Yes (physical therapy) 75 years or older and lives alone: No Alcohol intake: never Comment: confined to bed at home Patient Tobacco Use Status: Never used Tobacco service: No Telehealth Telehealth Telehealth Platform: Telephone Location of provider rendering services: practice address Location of patient: address on file Patient Identification confirmed using: Name, : Yes Telehealth method: voice only Patient verbally consented to treatment: Yes Patient verbally consented to billing insurance company: Yes Patient informed of any privacy concerns related to visit: Yes Minutes spent on Phone/Video with Pt.: 15 Assessment & Plan Assessment & Plan (1) S/P laparoscopic sleeve gastrectomy: Code(s): Z98.84 - Bariatric surgery status Category: Surgical Plan: Check six-month postop labs. Encouraged to follow the meal plan exactly without adding extra food Discussed the addition of food to her meal plan has stalled her weight loss. Discussed how this negatively impacts her pending left total knee replacement. Encouraged to resume exercise daily as she has decreased now to 3 days per week. Return to clinic 3 weeks Orders: Orders Lipid Panel Today E78.5 - Hyperlipidemia, unspecified, E83.51 - Hypocalcemia, I10 - Essential (primary) hypertension, K74.00 - Hepatic fibrosis, unspecified, Z98.84 - Bariatric surgery status TSH reflex Free T4 Today E78.5 - Hyperlipidemia, unspecified, E83.51 - Hypocalcemia, I10 - Essential (primary) hypertension, K74.00 - Hepatic fibrosis, unspecified, Z98.84 - Bariatric surgery status Ferritin Today E78.5 - Hyperlipidemia, unspecified, E83.51 - Hypocalcemia, I10 - Essential (primary) hypertension, K74.00 - Hepatic fibrosis, unspecified, Z98.84 - Bariatric surgery status Vitamin D 25-OH Total Today E78.5 - Hyperlipidemia, unspecified, E83.51 - Hypocalcemia, I10 - Essential (primary) hypertension, K74.00 - Hepatic fibrosis, unspecified, Z98.84 - Bariatric surgery status Insulin Today E78.5 - Hyperlipidemia, unspecified, E83.51 - Hypocalcemia, I10 - Essential (primary) hypertension, K74.00 - Hepatic fibrosis, unspecified, Z98.84 - Bariatric surgery status Hemoglobin A1c Today E78.5 - Hyperlipidemia, unspecified, E83.51 - Hypocalcemia, I10 - Essential (primary) hypertension, K74.00 - Hepatic fibrosis, unspecified, Z98.84 - Bariatric surgery status Complete Blood Count Auto Diff Today E78.5 - Hyperlipidemia, unspecified, E83.51 - Hypocalcemia, I10 - Essential (primary) hypertension, K74.00 - Hepatic fibrosis, unspecified, Z98.84 - Bariatric surgery status IRON PROFILE Today E78.5 - Hyperlipidemia, unspecified, E83.51 - Hypocalcemia, I10 - Essential (primary) hypertension, K74.00 - Hepatic fibrosis, unspecified, Z98.84 - Bariatric surgery status Vitamin B12 and Folate Today E78.5 - Hyperlipidemia, unspecified, E83.51 - Hypocalcemia, I10 - Essential (primary) hypertension, K74.00 - Hepatic fibrosis, unspecified, Z98.84 - Bariatric surgery status Zinc Today E78.5 - Hyperlipidemia, unspecified, E83.51 - Hypocalcemia, I10 - Essential (primary) hypertension, K74.00 - Hepatic fibrosis, unspecified, Z98.84 - Bariatric surgery status C Reactive Protein Today E78.5 - Hyperlipidemia, unspecified, E83.51 - Hypocalcemia, I10 - Essential (primary) hypertension, K74.00 - Hepatic fibrosis, unspecified, Z98.84 - Bariatric surgery status Vitamin B1 Today E78.5 - Hyperlipidemia, unspecified, E83.51 - Hypocalcemia, I10 - Essential (primary) hypertension, K74.00 - Hepatic fibrosis, unspecified, Z98.84 - Bariatric surgery status Vitamin A Today E78.5 - Hyperlipidemia, unspecified, E83.51 - Hypocalcemia, I10 - Essential (primary) hypertension, K74.00 - Hepatic fibrosis, unspecified, Z98.84 - Bariatric surgery status Basic Metabolic Panel Today E78.5 - Hyperlipidemia, unspecified, E83.51 - Hypocalcemia, I10 - Essential (primary) hypertension, K74.00 - Hepatic fibrosis, unspecified, Z98.84 - Bariatric surgery status
[2024-02-21 15:09] VITALS: BMI 42.3
== END 2024-02-21 15:27 | disposition home or self-care (01) ==
LOC: HO.HBS 15:20
PROVIDERS: PCP Student in an Organized Health Care Education/Training Program; Visit Provider Physician Assistant Surgical
DX: Z98.84 Bariatric surgery status (principal)
CPT/HCPCS: 99442

== ENCOUNTER → 2024-02-21 15:00 | Outpatient (BNVA) | payer OTHER, SELFPAY | PROVIDERS: PCP Student in an Organized Health Care Education/Training Program; Visit Provider Physician Assistant Surgical | DX: Z98.84 Bariatric surgery status (principal); K74.00 Hepatic fibrosis, unspecified; I10 Essential (primary) hypertension; E78.5 Hyperlipidemia, unspecified; E83.51 Hypocalcemia ==

== ENCOUNTER 2024-05-23 11:41 | Outpatient (REF) | payer OTHER, SELFPAY ==
--- OUTSIDE RECORDS SUMMARY | 2024-05-23 13:34 | XMS_ITS | Encounter Summary ---
Author Organization [employer] Address [address] [place] [address] Care Team Providers Care Macroeconomics Professor Name Role Phone Karla Roche MD Primary Care Provider [phone] Reason for Visit * Reason Onset Date Comments Verbal Orders 11/16/2023 Encounter Details Date Type Department Care Team ([facility] Contact Info) Description 11/16/2023 Telephone [facility] [address] [place] [address] Karla Roche MD [address] [place] [id number] Verbal Orders Social History Tobacco Use Types Packs/Day Years Used Date Smoking Tobacco: Never Smokeless Tobacco: Never Depression Answer Date Recorded Patient Health Questionnaire-9 Score 0 05/19/2023 Patient Health Questionnaire-9 Score 0 05/19/2023 Last PHQ-9: Questionnaire Data Not on file 0 05/19/2023 Housing Stability Answer Date Recorded What is your housing situation today? I have giorgi john 05/10/[address] you li ve. Do you have problems with any of the following? None of the above 05/10/2023 Food Insecurity Answer Date Recorded Within the past 12 months, y ou worried that your food would run out before you got money to buy more: Never True 05/10/2023 Within the past 12 months,th e food you bought just didn't last and you didn't have enough money to get more: Never True 01/2024 Transportation Answer Date Recorded In the past 12 months, has l ack of transportation kept you from medical appts, meetings, work or from getting things needed for daily living? No 05/10/2023 Utilities Answer Date Recorded In the past 12 months, has t he electric, gas, oil or water company threatened to shut off services in your home? No 05/10/2023 Depression Answer Date Recorded Patient Health Questionnaire-2 Score 0 05/19/2023 Comments No Sex and Gender Information Value Date Recorded Sex Assigned at Female 03/01/2022 10:32 AM EDT Legal Sex Female 10:32 AM EDT Gender Identity Female 03/01/2022 10:32 AM EDT Sexual Orientation Straight 03/01/2022 10 :32 AM EDT documented as of this encounter Miscellaneous Notes * Telephone Encounter - Wing Mary RN - 11/16/2023 4:33 PM EDT Tc to [facility] to request clarification on what verbal orders need to be renewed. Unable to reach him, left message for him to call back. * Telephone Encounter - Daniel Soto - 11/16/2023 10:38 AM EDT Tc from [facility] requesting some Verbal Orders to renew pt in there home care. documented in this encounter Plan of Treatment Not on file documented as of this encounter Visit Diagnoses Not on filedocumented in this encounter Additional Health Concerns Assessment Noted Time PHQ-9 Depression Total Score: 0 05/19/19 9:52 AM EST documented as of this encounter Care Teams Macroeconomics Professor Relationship Specialty Start Date End Date Karla Roche MD [address] [place] [id number] PCP - General Family Medicine 12/13/16 [facility] 09/20/23 documented as of this encounter
--- OUTSIDE RECORDS SUMMARY | 2024-05-23 13:34 | XMS_ITS | Encounter Summary ---
Author Organization [employer] Address [address] [place] [address] Care Team Providers Care Credit Cashier Name Role Phone Karla Roche MD Primary Care Provider [phone] Reason for Visit * Reason Comments Med Refill Encounter Details Date Type Department Care Team ([facility] st Contact Info) Description 10/06/2023 Refill [facility] [address] [place], [place] [id number] Karla Roche MD [address] [place] [address] Chronic pain of both knees Social History Tobacco Use Types Packs/Day Years [...] AM EDT documented as of this encounter Plan of Treatment Not on file documented as of this encounter Visit Diagnoses Diagnosis Chronic pain of both knees documented in this encounter Additional Health Concerns Assessment Noted Time PHQ-9 Depression Total Score: 0 05/19/19 9:52 AM EST documented as of this encounter Care Teams Credit Cashier Relationship Specialty Start Date End Date Karla Roche MD [address] [place] [id number] PCP - General Family Medicine 12/13/16 [facility] 09/20/23 documented as of this encounter
--- OUTSIDE RECORDS SUMMARY | 2024-05-23 13:34 | XMS_ITS | Encounter Summary ---
Author Organization [employer] Address [address] [facility] [place] [address] Care Team Providers Care Plywood Stock Grader Name Role Phone Karla Roche MD Primary Care Provider [phone] Encounter Details Date Type Department Care Team (Latest Contact Info) Description 05/23/2024 Travel Social History Tobacco Use Types Packs/Day Years Used Date Smoking Tobacco: Never Smokeless Tobacco: Never Depression Answer Date Recorded Patient Health Questionnaire-9 Score 0 05/23/2024 Patient Health Questionnaire-9 Score 0 05/23/2024 Last PHQ-9: Questionnaire Data Not on file 0 05/23/2024 Housing Stability Answer Date Recorded What is [...] Date Recorded Patient Health Questionnaire-2 Score 0 05/23/2024 Comments No Sex and Gender Information Value [...] Noted Time PHQ-9 Depression Total Score: 0 05/23/19 25 11:13 AM EST documented as of this encounter Care Teams Plywood Stock Grader Relationship Specialty Start Date End Date Karla Roche MD [address] [place] [address] PCP - General Family Medicine 12/13/16 [facility] 09/20/23 documented as of this encounter
--- OUTSIDE RECORDS SUMMARY | 2024-05-23 13:34 | XMS_ITS | Data Portability ---
Author Organization [place] - [facility] Address [address] [place] [id number] Assessment Encounter Date Assessment Date Assessment LastModified by Organization Details LastModified Time 06/26/2021 06/26/2021 Overview/History : 75 yo female who is new to and new to this provider with HTN, hyperlipidemia and hx of hypercalcemia being seen for left ear pain, sensation of water in the ear and sore neck since yesterday. Pt has also had pain with urination for the past month. Has been treated with antibiotic once already Exam: VSS, NAD, obsese, pleasant and interactive, TM on right is pearly aguirre, TM on left obscurred by small amount of cerumen, TM visulized after removal and is dull, no erythema, no cervical lymphadenopathy, increased discomfort with palp of left cervical paravertebral muscles, RRR, lungs CTA bilatera, BS present, nontender with palp, no peritoneal signs, masses, no CVA tenderness, vaginal introitus with moderate amount of white discharge, no rash on skin DDx considered, but not limited to:vaginal candidiasis, UTI, BV, otitis media, otitis externa, eustachian tube dysfunction, cerumen impaction, foreign body Work up/Results:UA Plan/Discussion:U A does not suggest infection and only symptom is dysuria. In addition white vaginal discharge is noted on exam. Suspect vaginal candidiasis given hx of antibiotic use, no improvement with antibiotic, and neg UA. Will treat with diflucan. Will follow up if not resolved. Suspcet small amount of cerumen with eustachian tube dysfunction. No erythema, fever, discharge, or severe pain to suggest infection. Reviewed supportive care with pt and her janine/long r. Discussed folllow up precautions. Proper Personal Protective Equipment (PPE), was donned and doffed appropriately and all equipment cleaned using approved technique with germicidal disposable wipes prior to and after care of this patient according to [facility]'s infection prevention protocols. Time On Scene with Patient: 00:45:21 [email or web address] Not available 06/26/2021 13:57:59 Plan of Treatment Reminders Order Date Submit Date Provider Last Modified By Organization Details Last Modified Time Details Appointments None recorded. Lab urinalysis , dipstick 2021 022 [email or web address] [facility] [place], [address] [place], [address], 13:22:40 Referral None recorded. Procedures None recorded. Surgeries None recorded. Imaging None recorded. Medication Orders Diflucan 150 mg tablet 2021 [facility] [address], [address] [place] [address], [id number], 13:23:27 Patient TargetsNo targets recorded. Patient Instructions Encounter Date Encounter Id Patient Instructions Last Modified By Organization Details Last Modified Time 06/26/2021 [id number] can apply warm compresses or heating pad on LOW to left ear/neck for comfort Can start nasal saline nose spray 4 times daily to help reduce swelling in the nose which will help with ear symptoms Use humidifier to help moisturize the air Ear symptoms should be improving in 3-5 days follow up if not improving and right away if worse Try to leave groin area open to air a few times per day for the next couple of days Urinary pain should improve quickly, 2-3 days follow up if not improving or if worse Follow up right away if fever, abdominal pain, nausea, vomiting [email or web address] Not available 06/26/2021 13:25:02 Reason for Referral None Reported. Results Created Date Observation Date Name Description Value Unit Range Abnormal Flag Note LastModifiedBy Organization Detail LastModifiedTime 06/26/1906/26/2021 urina lysis , dipst ick Appearance clear Not Available [facility] [address] [place], [address], 06/26/2021 13:20:03 06/26/19 22 06/26/2021 urina lysis , dipst ick Color yellow /orang e/AZO Not Available [facility] [address], [place], [address], 06/26/2021 13:20:03 06/26/19 22 06/26/2021 urina lysis , dipst ick Glucose (ref: neg) Neg Not Available [facility] [address] [place], [address], 06/26/2021 13:20:03 06/26/19 22 06/26/2021 urina lysis , dipst ick Bilirubin (ref: neg) Neg Not Available [facility] [address] [place], [address], 06/26/2021 13:20:03 06/26/19 22 06/26/2021 urina lysis , dipst ick Ketones (ref: neg) Neg Not Available [facility] [address] [place], [address], 06/26/2021 13:20:03 06/26/19 22 06/26/2021 urina lysis , dipst ick Specific Duncan (ref: 1.003 - 1.035) 1.015 Not Available [facility] [address], [place], [address], 06/26/2021 13:20:03 06/26/19 22 06/26/2021 urina lysis , dipst ick Blood (ref: neg) Neg Not Available [facility] [address], [place], [address], 06/26/2021 13:20:03 06/26/19 22 06/26/2021 urina lysis , dipst ick pH (ref: 5-7) 5.0 Not Available [facility] [address] [place], [address], 06/26/2021 13:20:03 06/26/19 22 06/26/2021 urina lysis , dipst ick Protein (ref: neg) Neg Not Available [facility] [address] [place], [address], 06/26/2021 13:20:03 06/26/19 22 06/26/2021 urina lysis , dipst ick Urobili 0.2 Not Available [facility] [address] [place], [address], 06/26/2021 13:20:03 06/26/19 22 06/26/2021 urina lysis , dipst ick Nitrites (ref: neg) negati ve Not Available [facility] [address] [place], [address], 06/26/2021 13:20:03 06/26/19 22 06/26/2021 urina lysis , dipst ick Leukocytes (ref: neg) Neg Not Available [facility] [address] [place], [address], 06/26/2021 13:20:03 06/26/19 22 06/26/2021 urina lysis , dipst ick [facility] [address] [place] [address], [id number] Not Available [facility] - [address] [place], [address], 06/26/2021 13:20:03 Result Notes None recorded. Procedures Surgical History Date Name Laterality Status Provider Name and Address Organization Details Recorded Time 2 Straight Cath - DH completed BUZZ SOUZA [address] [place], [address], [place] [facility] 06/26/2021 13:35:53 Imaging Results None recorded. Procedure Notes None recorded. Medical Equipment None Reported. Allergies Allergen ID Allergen Name Allergen Category Reaction Reaction Severity Criticality Documentation Date Start Date Code Code System Note Provider Name and Address Organization Details Recorded Time [id number] lisinopri l medicatio n Not available Not available Not available 06/26/2021 47208 RxNorm BUZZ SOUZA [address] [place], [address], [place] [facility] 12:50:03 Medications Name Sig Start Date Stop Date Status Note LastModified by Organization Details LastModified Time atorvastati n 10 mg tablet TAKE ONE TABLET EVERY MORNING active Not Available Not Available No t Available fluconazole 150 mg tablet TAKE 1 TABLET BY MOUTH FOR ONE DAY active Not Available Not Available No t Available aspirin 81 mg tablet,yael yed release TAKE ONE TABLET EVERY MORNING active Not Available Not Available No t Available tramadol 50 mg tablet TAKE ONE TABLET EVERY TWELVE HOURS NEEDED 06/26 completed Not Available Not Available Not Available potassium chloride ER 20 mEq tablet,exte nded release(par t/cryst) TAKE 1 TABLET BY MOUTH ONCE 06/26 completed Not Available Not Available Not Available Lidoderm 5 % topical patch APPLY 1 PATCH TO SKIN. LEAVE ON FOR 12 HOURS, THEN OFF FOR 12 HOURS DIRECTED. 06/26 completed Not Available Not Available Not Available amlodipine 10 mg tablet TAKE ONE TABLET EVERY MORNING active Not Available Not Available No t Available hydrochloro thiazide 25 mg tablet TAKE ONE TABLET BY MOUTH TWICE DAILY IN THE MORNING AND AT NOON 06/26 completed Not Available Not Available Not Available mupirocin 2 % topical ointment APPLY INSIDE BOTH nostrils TWICE DAILY. START 5 DAYS BEFORE SURGERY 06/26 completed Not Available Not Available Not Available diclofenac sodium 50 mg tablet,yael yed release TAKE ONE TABLET BY MOUTH TWICE DAILY 06/26 completed Not Available Not Available Not Available furosemide 20 mg tablet TAKE ONE TABLET BY MOUTH THREE TIME DAILY IN THE MORNING, AT NOON, AND IN THE EVENING active Not Available Not Available No t Available nitrofurant oin monohydrate /macrocryst als 100 mg capsule TAKE ONE CAPSULE EVERY TWELVE HOURS WITH FOOD UNTIL FINISHED 06/26 completed Not Available Not Available Not Available chlorhexidi ne gluconate 0.12 % mouthwash RINSE FOR 30 SECONDS WITH A HALF OUNCE (15ml) TWICE DAILY, SPIT OUT -- DO NOT SWALLOW. USE FOR 2 DAYS active Not Available Not Available No t Available cholecalcif renee (vitamin D3) 25 mcg (1,000 unit) tablet TAKE ONE TABLET EVERY MORNING active Not Available Not Available No t Available Pain Relief (acetaminop hen) 650 mg tablet,exte nded release TAKE 1&1/2 TABLETS THREE TIMES DAILY NEEDED active Not Available Not Available No t Available Vitals Date Recorded Respiratory rate Oxygen saturation Oxygen saturation in Arterial blood by Pulse oximetry Heart rate Body temperature Systolic blood pressure Diastolic blood pressure Provider Name and Address Organization Details Last Updated DateTime 2 18 /min 94 % 94 % 73 /min 97.9 [degF] 132 mm[Hg] 76 mm[Hg] Not Available [facility] 12:58:28 Social History Question Answer Notes LastModified by Organizat ion Details LastModified Time Tobacco Smoking Status Never Smoker BU[facility] [address], [place], [address], [place] [facility] 06/26/2021 12:52:59 Do You Have An Advance Directive? No Information not available 06/26/2021 What Is Your Code Status? Full Code [email or web address] Information not available 06/26/2021 Within The Past 12 Months, Has It Happened That The Food You Bought Just Didn't Last And You Didn't Have Money To Get More. No [email or web address] Information not available 06/26/2021 Within The Past 12 Months, Have You Worried That Your Food Would Run Out Before You Got Money To Buy More. No [email or web address] Information not available 06/26/2021 Fall Risk: Do You Feel Unsteady When Standing Or Walking? Yes [email or web address] Information not available 06/26/2021 We Know That How And When People Interact With Friends And Family Can Be Very Different From Person To Person. How Often Do You Have The Opportunity To See Or Talk To People That You Care About And Feel Close To? (Ex: Talking To Friends On The Phone Or Visiting Friends Or Family Or Going To Holiness Or Club Meetings) 3 Or 4 Times Per Week [email or web address] Information not available 06/26/2021 What Is Your Housing Situation Today? I Have Housing [email or web address] Information not available 06/26/2021 Would You Like Help Connecting To Resources? None [email or web address] Information not available 06/26/2021 Sex: Unknown Functional Status None recorded. Mental Status None recorded. Family History Relationship Description Onset Age of this Age Resolved Age Notes LastModified by Organization Details LastModified Time Father No current problems or disability [email or web address] Not available 06/26 12:53:50 Mother No current problems or disability [email or web address] Not available 06/26 12:53:50 Medical History Condition Response Coronary Artery Disease N COPD N Depression N Hypothyroidism N A-fib N Cancer N Stroke N High Cholesterol Y Rheumatoid Arthritis N Kidney Disease N Parkinson's Disease N Diabetes N CHF N Dementia N Asthma N Pulmonary Embolism N Hypertension Y Osteoporosis N Gynecological HistoryNo gynecological history recorded. Obstetrics History GPAL:G 0 P 0 0 0 0 Past Encounters Encounter ID Performer Location Encounter Start Date Encounter Closed Date Diagnosis/Indication Diagnosis SNOMED-CT Code Diagnosis ICD10 Code Diagnosis Note [id number] [facility] [address] [place] [address] 06/26/2021 12:48:27 06/30/2021 10:09:02 Dysfunction of left eustachian tube 0262328050 839904 H69.92 Dysuria 72504120 R30.9 Vaginitis 65147831 N76.0 Health Concerns Section Related Observation LastModified by Organization Detai ls LastModified Time None Recorded Concern Status LastModified by Organization Details LastModified Time None Recorded Advance Directives Directive N: Payers Encounter Date Sequence Insurance Name Policy Number Policy Melchor Covered Member ID Melchor Member ID Guarantor Name 06/26/2021 1 [place]: [facility] Mary Cody [id number] Mary Bhatenio Notes Date Note Type Note Provider Name and Address Organization Details Recorded Time 06/26/2021 text/html 75 yo female with left ear pain and sensation of water in the ear for the past two days. Denies fever, cough, nasal congestion, sore throat. Not sure if anything helps or not. No q-tip use Pt has also had pain with urination for the month. Pt's pcp was contacted and pt tried taking antibiotic(macro bid) for 7 days. Finished on 05/29/2021 (about 3weeks ago). Pt did not notice any change in symptoms. Denies fever, chills, abdominal pain, itching, discharge, and back pain. BUZZ SOUZA [address], [place], [address], [place] [facility] 06/26/2021 13:58:11 OBGyn Episode No OBEpisode recorded.
--- OUTSIDE RECORDS SUMMARY | 2024-05-23 13:34 | XMS_ITS | Encounter Summary ---
Author Organization [employer] Address [address] [facility] [address] [place] [address] Care Team Providers Care Shop Foreman Name Role Phone Karla Roche MD Primary Care Provider [phone] Reason for Visit * Reason Onset Date Comments Med Refill 05/08/2024 Encounter Details Date Type Department Care Team ([facility] st Contact Info) Description 05/08/2024 Telephone [facility] [address], [place] [phone] Karla Roche MD [address] [place] [address] Med Refill Social History Tobacco Use Types Packs/Day Years [...] encounter Miscellaneous Notes * Telephone Encounter - Makayla Infante RN - 05/10/2024 8:46 AM EST TC to pt regarding message below. No answer. Lvm for pt. Appt with PCP scheduled 05/23/24. * Telephone Encounter - Karla Roche MD - 05/09/2024 4:28 PM EST Needs atleast a tele before refill * Telephone Encounter - Makayla Infante RN - 05/08/2024 2:07 PM EST Pt requesting refill of Tramadol 50mg. Last refill 02/10/24 qty 84 from an outside provider. Pt no showed to PCP appt on 02/10/24. F/u on 05/23/24. Please advise. * Telephone Encounter - Cinthia Randall - 05/08/2024 1:56 PM EST TC from pt requesting medication refill. Medications needing refill : traMADol (Ultram) 50 MG tablet To be sent to: [facility] [place] - [address] [place] [address] St documented in this encounter Plan of Treatment Not on file documented as of this encounter Visit Diagnoses Not on filedocumented in this encounter Additional Health Concerns Assessment Noted Time PHQ-9 Depression Total Score: 0 05/19/19 9:52 AM EST documented as of this encounter Care Teams Shop Foreman Relationship Specialty Start Date End Date Karla Roche MD [address] [place] [address] PCP - General Family Medicine 12/13/16 [facility] 09/20/23 documented as of this encounter
--- OUTSIDE RECORDS SUMMARY | 2024-05-23 13:34 | XMS_ITS | Data Portability ---
Author Organization [facility] Aashish Ceja [facility], [facility] Address [address] [place] [address] Assessment Encounter Date Assessment Date Assessment LastModified by Organization Details LastModified Time 12/02/2023 12/02/2023 Assessment: Patient presents with symptoms that are consistent with knee OA. Demonstrates good understanding of home program, post-operative mechanics for gait and stairs, and expectations following surgery. Plan: Discharge patient to knee OA safe [facility]. Follow up with patient post-operatively. [email or web address] Not available 12/02/2023 07:13:48 01/20/2024 01/20/2024 Imaging: Imaging ordered, independently reviewed and interpreted by Uziel Solomon MD reveals the following findings: XR Knee Right Knee: Three views of the knee were obtained including AP, sunrise, and lateral views. Status post total knee arthroplasty. No evidence of complication, well fixed, well aligned. There is no evidence of loosening or migration. There is no evidence of osteolysis. No fractures are present. Alignment: Neutral Impression: Status post right total knee arthro-plasty, 6 weeks out Plan: The patient is doing well, continue activities as tolerated. She is given a follow-up with me in 2 months to reevaluate and discuss her left knee for possible left knee replaced in surgery [email or web address] Not available 01/20/2024 15:58:28 04/12/2024 04/12/2024 Imaging: Imaging ordered, independently reviewed and interpreted by Uziel Solomon MD reveals the following findings: XR Knee Left Knee: Four views of the knee were obtained including AP, booker, sunrise, and lateral views. Severe DJD present. Changes consistent with osteoarthritis including joint space narrowing, subchondral sclerosis, and osteophyte formation. Arthrosis primariliy affects the medial compartment. Alignment: Varus Impression: Left knee osteoarthritis Plan: I recommend a total knee arthroplasty for relief of their degenerative joint disease of the knee. They have exhausted conservative measures. Their symptoms are significant enough to warrant replacement. I informed the patient that the goal is to offer significant pain relief for about 15 years, and hopefully this also improves their knee function. Activities can be resumed after surgery, however running and jumping are discouraged. They agree to this procedure. Prior to surgery the patient needs to have the following: CBC, CMP, medical clearance, Indications for surgery: Advanced joint disease demonstrated by: Xray Failure of conservative management Unsuccessful history of appropriate conservative therapy (non-surgical medical management). Non surgical medical management was implemented for 3 months or more to assess effectiveness. Conservative treatment as clinically appropriate for the patient? s current episode of care including, but not limited to, one or more of the following: anti-inflammatory medications, analgesics, flexibility and muscle strengthening exercises, supervised physical therapy, activities of daily living (ADLs) diminished despite completing a plan of care, activity restrictions as is reasonable, assistive device use, weight reduction as appropriate, and therapeutic injections into the joint as appropriate. Risks and benefits of surgery were discussed with the patient and the patient understood. We discussed the alternatives and details of surgery and postoperative care with the patient. The patient understands the concepts of surgery and the postoperative conditions required for healing. The patient further understands that surgery can have unfavorable outcomes. In particular, we discussed the possible complications of nonhealing of the tissues and need for reoperation, nerve injury, bleeding or blood loss requiring transfusion, hematoma or complications of anticoagulation used to prevent blood clots, infection requiring further surgery or removal of implants, massive infection requiring amputation, or continued or worse pain. We also discussed worsening of chronic medical conditions and life-threatening complications including stroke, clot, heart attack, pulmonary embolism and related to the surgery or anesthesia, or other factors. The patient understands these risks and benefits of surgery and wishes to proceed, and has signed consent willfully. Due to the condition of the joint, it is my medical opinion that further conservative treatment will not provide relief of their pain, thus we are proceeding with surgery. 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 Patients prescribed antithrombotic therapy for an indication other than post-operative VTE prophylaxis should be assessed on an individual basis for continuation of their current therapy. If using a direct oral anticoagulant (DOAC) as home regimen, either resume DOAC post-op, or consider temporary transition to Warfarin therapy in the post-operative period. [email or web address] Not available 04/12/2024 08:33:52 Plan of Treatment Reminders Order Date Submit Date Provider Last Modified By Organization Details Last Modified Time Details Appointments BROTHER S H&P 2024 01:00P M Reba Donohue APRN Not available Not available Not available SURGERY @ [facility] 2024 10:30A M Uziel Solomon MD Not available Not available Not available PT INITIAL EVAL 2024 02:30P M Marylin Nino DPT Not available Not available Not available PT FOLLOW- UP 2024 01:30P M Eliel Mckeon, NEUROPSYCHIATRIST Not available Not available Not available POST OP 15 2024 02:00P M Lopez Strange PA-C Not available Not available Not available PT FOLLOW- UP 2024 01:00P M Eliel Mckeon, NEUROPSYCHIATRIST Not available Not available Not available PT FOLLOW- UP 2024 12:30P M Eliel Mckeon, NEUROPSYCHIATRIST Not available Not available Not available PT FOLLOW- UP 2024 12:30P M Eliel Mckeon, NEUROPSYCHIATRIST Not available Not available Not available PT ANY 30 2024 02:00P M Marylin Nino DPT Not available Not available Not available PT FOLLOW- UP 2024 02:00P M Marylin Nino DPT Not available Not available Not available PT FOLLOW- UP 2024 01:30P M Eliel Mckeon, NEUROPSYCHIATRIST Not available Not available Not available PT FOLLOW- UP 2024 01:30P M Eliel Mckeon, NEUROPSYCHIATRIST Not available Not available Not available PT FOLLOW- UP 2024 01:00P M Eliel Mckeon, NEUROPSYCHIATRIST Not available Not available Not available PT FOLLOW- UP 2024 01:30P M Eliel Mckeon, NEUROPSYCHIATRIST Not available Not available Not available POST OP 10 2024 02:00P M Uziel Solomon MD Not available Not available Not available Lab None recorde d. Referral None recorde d. Procedures None recorde d. Surgeries None recorde d. Imaging XR, knee, 3 view - rm 210 3V 1st PO RTKR AB 2023 024 [email or web address] [facility], [address], [place], [address], 12/26/2023 16:18:16 XR, knee, 3 view - 201 3v RTKR 2023 024 [email or web address] [facility], [address], [place], [address], 02/01/2024 16:14:18 XR, knee, 4 or more view - 202 4v left knee AB protoco l 2023 024 [email or web address] Ellis [facility], [address], [place], [address], 05/03/2024 11:36:55 Medication Orders None recorde d. Patient TargetsNo targets recorded. Patient InstructionsNo instructions recorded. Reason for Referral None Reported. Results Created Date Observation Date Name Description Value Unit Range Abnormal Flag Note LastModifiedBy Organization Detail LastModifiedTime 11/29/19 24 11/29/2023 XR, bone lengt h [email or web address]:/ [email or web address] ?Encry pted=s hAaTro YD8dLq bEUv6g %2BXZw aYqtaq 0bqfl% 2Fg9IQ a4ajBk vP9nXo QUaueC m3YtLR FvZlgJ JJ8mAn HZtai3 1k1144 AC0Koa HWNUaL eUC8mr 84%3D INTERFACE [facility] [address], [place], [address], 11/29/2023 13:36:58 11/29/19 24 11/29/2023 XR, bone lengt h [email or web address] ?Encry pted=s hAaTro YD8dLq bEUv6g %2BXZw aYqtaq 0bqfl% 2Fg9IQ a4ajBk vP9nXo QUaueC m3YtLR FvZlgJ JJ8Dayton HZtai3 2h1916 AC0Koa HWNUaL eUC8mr 84%3D INTERFACE [facility] [address], [place], [address], 11/29/2023 13:37:00 11/29/19 24 11/29/2023 XR, knee, 4 or more view [email or web address]:/ [email or web address] ?Encry pted=s hAaTro YD8dLq bEUv6g %2BXZw aYqtaq 0bqfl% 2Fg9IQ a4ajBk vP9nXo QUaueC m3YtLR FvZl JJ8Dayton HZtai3 6j8029 AC0Koa HWCWKr eUC8mr 84%3D INTERFACE [facility] [address], [place], [address], 11/29/2023 13:43:30 11/29/19 24 11/29/2023 XR, knee, 4 or more view [email or web address]:/ [email or web address] ?Encry pted=s hAaTro YD8dLq bEUv6g %2BXZw aYqtaq 0bqfl% 2Fg9IQ a4ajBk vP9nXo QUaueC m3YtLR FvZlJ [address] [place], [place] [address]tai3 4y8432 AC0Koa HWCWKr eUC8mr 84%3D INTERFACE [facility] [address], [place], [address], 11/29/2023 13:43:31 12/26/19 24 12/26/2023 XR, knee, 3 view [email or web address]:/ [email or web address] ?Encry pted=s hAaTro YD8dLq bEUv6g %2BXZw aYqtaq 0bqfl% 2Fg9IQ a4ajBk vP9nXo QUaueC m3YtLR FvZl[address] Streettai3 8h2725 AC0Kra XWCUKH eUC8mr 84%3D INTERFACE [facility] [address], [place], [address], 12/26/2023 15:58:39 12/26/19 24 12/26/2023 XR, knee, 3 view [email or web address]:/ [email or web address] ?Encry pted=s hAaTro YD8dLq bEUv6g %2BXZw aYqtaq 0bqfl% 2Fg9IQ a4ajBk vP9nXo QUaueC m3YtLR [facility] JJ8[facility] 5b3113 AC0Kra XWCUKH eUC8mr 84%3D INTERFACE [facility] [address], [place], [address], 12/26/2023 15:58:41 01/20/20 24 01/20/2024 XR, knee, 3 view [email or web address]:/ [email or web address] ?Encry pted=s hAaTro YD8dLq bEUv6g %2BXZw aYqtaq 0bqfl% 2Fg9IQ a4ajBk vP9nXo QUaueC m3YtLR FvZl JJ8Dayton HZtai3 0a3993 AC0Kqa nuMV6C vKiQtr MwF INTERFACE [facility] [address], [place], [address], 01/20/2024 14:57:02 01/20/20 24 01/20/2024 XR, knee, 3 view [email or web address]:/ [email or web address] ?Encry pted=s hAaTro YD8dLq bEUv6g %2BXZw aYqtaq 0bqfl% 2Fg9IQ a4ajBk vP9nXo QUaueC m3YtLR FvZl JJ8mAn HZtai3 0k4154 AC0Kqa nuMV6C vKiQtr MwF INTERFACE [facility] [address] [facility] [address], [place], [address], 01/20/2024 14:57:04 04/12/20 24 04/12/2024 XR, knee, 4 or more view [email or web address]:/ [email or web address] ?Encry pted=s hAaTro YD8dLq bEUv6g %2BXZw aYqtaq 0bqfl% 2Fg9IQ a4ajBk vP9nXo QUaueC m3YtLR FvZl JJ8mAn HZtai3 4c9565 AC0Kqb nyHU6G uKiQtr MwF INTERFACE [facility] [address] [facility] [address], [place], [address], 04/12/2024 08:39:18 04/12/20 24 04/12/2024 XR, knee, 4 or more view [email or web address]:/ [email or web address] ?Encry pted=s hAaTro YD8dLq bEUv6g %2BXZw aYqtaq 0bqfl% 2Fg9IQ a4ajBk vP9nXo QUaueC m3YtLR FvZlgJ JJ8mAn HZtai3 5n3516 AC0Kqb nyHU6G uKiQtr MwF INTERFACE [facility] [address] [facility] [address], [place], [address], 04/12/2024 08:39:20 Result Notes None recorded. Problems Name Problem SNOMED Code Status Onset Date Resolution Date Notes Provider Name and Address Organization Details Recorded Time Osteoarthr itis of left knee joint 6824362815742 09 Active 2023 Uziel Solomon MD [address], [place], [address] , [facility] 4 08:33:50 Osteoarthr itis of right knee joint 0415469864349 00 Active 2023 Uziel Solomon MD [address], [place], [address] , [facility] 4 12:58:38 History of total knee arthroplas ty 1237679839830 Active 2023 Uziel Solomon MD [address], [place], [address] , [facility] 4 15:05:49 History of right total knee replacemen t 4875108169312 102 Active 2023 Uziel Solomon MD [address], [place], [address] , [facility] 4 15:58:27 Problem Notes None recorded. Procedures Surgical History Date Name Laterality Status Provider Name and Address Organization Details Recorded Time 4 67413 Therapeutic Exercise (1:1) cancelled Marylin Nino DPT [address], [place], [address], [facility] 01/08/2024 21:12:27 4 52982: Low complexity PT Eval cancelled Marylin Nino DPT [address], [place], [address], [facility] 01/08/2024 21:12:27 4 72875 Therapeutic Exercise (1:1) cancelled Marylin Nino DPT [address], [place], [address], [facility] 12/23/2023 21:29:18 4 90944: Low complexity PT Eval cancelled Marylin Nino, DPT [address], [place], [address], [facility] 12/23/2023 21:29:18 4 90179 Therapeutic Exercise (1:1) completed Tom Ashley, PT [address], [place], [address], [facility] 12/02/2023 15:44:50 4 24320: Low complexity PT Eval completed Tom Ashley, PT [address], [place], [address], [facility] 12/02/2023 15:44:53 Imaging Results Imaging Date Name Status LastModified by Organiz ation Details LastModified Time 11/29/2023 XR, bone length completed INTER[facility] [address], [place], [address], 11/29/2023 13:36:58 11/29/2023 XR, bone length completed INTER[facility] [address], [place], [address], 11/29/2023 13:37:00 11/29/2023 XR, knee, 4 or more view completed INTER[facility] [address], [place], [address], 11/29/2023 13:43:30 11/29/2023 XR, knee, 4 or more view completed INTERFACE [facility] [address], [place], [address], 11/29/2023 13:43:31 12/26/2023 XR, knee, 3 view completed INTERFACE [facility] [address], [place], [address], 12/26/2023 15:58:39 12/26/2023 XR, knee, 3 view completed INTERFACE [facility] [address], [place], [address], 12/26/2023 15:58:41 01/20/2024 XR, knee, 3 view completed INTERFACE [facility] [address], [place], [address], 01/20/2024 14:57:02 01/20/2024 XR, knee, 3 view completed INTERFACE [facility] [address], [place], [address], 01/20/2024 14:57:04 04/12/2024 XR, knee, 4 or more view completed INTERFACE [facility] [address], [place], [address], 04/12/2024 08:39:18 04/12/2024 XR, knee, 4 or more view completed INTERFACE [facility] [address], [place], [address], 04/12/2024 08:39:20 Procedure Notes None recorded. Medical Equipment None Reported. Allergies Allergen ID Allergen Name Allergen Category Reaction Reaction Severity Criticality Documentation Date Start Date Code Code System Note Provider Name and Address Organization Details Recorded Time 90549 lisinopri l medicatio n Not available Not available Not available 07/04/20232021 55214 RxNorm Not Available [facility] 12:44:49 Medications Name Sig Start Date Stop Date Status Note LastModified by Organization Details LastModified Time medbox status USE DIRECTED active Not Available Not Available No t Available amoxicillin 500 mg capsule TAKE ONE CAPSULE EVERY TWELVE HOURS FOR TWO WEEKS active Not Available Not Available No t Available polyethylene glycol 3350 17 gram oral powder packet mix packet with 8oz of water,cryst al light or gatorade zero or propel and drink 7 packets on 08/27 and 7 packets on 08/28 active Not Available Not Available No t Available atorvastatin 10 mg tablet TAKE ONE TABLET EVERY MORNING active Not Available Not Available No t Available clarithromyc in 500 mg tablet TAKE ONE TABLET EVERY TWELVE HOURS FOR TWO WEEKS active Not Available Not Available No t Available sucralfate 100 mg/mL oral suspension TAKE 10 ml's BY MOUTH TWICE DAILY active Not Available Not Available No t Available ondansetron HCl 4 mg tablet TAKE 1 TABLET BY MOUTH EVERY 8 HOURS NEEDED FOR NAUSEA AND VOMITING active Not Available Not Available No t Available alendronate 70 mg tablet TAKE 1 TABLET ONCE A WEEK WITH 6 TO 8 OZ OF WATER 30 MINUTES BEFORE FIRST FOOD OF THE DAY. DO NOT LIE DOWN FOR 30 MINUTES. active Not Available Not Available No t Available fondaparinux 2.5 mg/0.5 mL subcutaneous solution syringe INJECT 2.5 MG (0.5 ML) SUBCUTANEOU SLY EVERY 24 HOURS active Not Available Not Available No t Available aspirin 81 mg tablet,delay ed release TAKE ONE TABLET EVERY MORNING active Not Available Not Available No t Available tramadol 50 mg tablet 1-2 tablets PO q6h PRN pain active Not Available Not Available No t Available acetaminophe n ER 650 mg tablet,exten ded release TAKE 1 TO 2 TABLETS THREE TIMES DAILY NEEDED active Not Available Not Available No t Available cefadroxil 500 mg capsule TAKE 1 CAPSULE BY MOUTH EVERY 12 HOURS FOR 10 DAYS active Not Available Not Available Not Available amlodipine 10 mg tablet TAKE ONE TABLET EVERY MORNING active Not Available Not Available No t Available pantoprazole 40 mg tablet,delay ed release TAKE 1 TABLET BY MOUTH EVERY DAY active Not Available Not Available No t Available docusate sodium 100 mg capsule TAKE 1 CAPSULE BY MOUTH TWO TIMES A DAY active Not Available Not Available Not Available omeprazole 20 mg capsule,yael yed release TAKE ONE CAPSULE TWICE DAILY FOR TWO WEEKS active Not Available Not Available No t Available furosemide 20 mg tablet TAKE TWO TABLETS TWICE DAILY IN THE MORNING AND EVENING active Not Available Not Available No t Available ondansetron 4 mg disintegrati ng tablet TAKE ONE TABLET EVERY TWELVE HOURS NEEDED FOR NAUSEA AND VOMITING active Not Available Not Available No t Available oxycodone 5 mg tablet TAKE 1 TO 2 TABLETS BY MOUTH EVERY 4 HOURS NEEDED FOR SEVERE PAIN active Not Available Not Available Not Available calcium 315 mg (as citrate)-vit mccormack D3 5 mcg (200 unit) tablet TAKE TWO TABLETS MORNING, NOON, EVENING AND BEDTIME active Not Available Not Available No t Available Eliquis 2.5 mg tablet TAKE 1 TABLET BY MOUTH TWO TIMES A DAY active Not Available Not Available Not Available Vitals Date Recorded Body height Body mass index (BMI) Body weight Provider Name and Address Organization Details Last Updated DateTime 11/29/2023 165.1 cm 43.3 kg/m2 026887.02 g KIMBER RAMÍREZ [facility] 11/29/2023 13:08:45 Date Recorded Body height Provider Name an d Address Organization Details Last Updated DateTime 12/26/2023 165.1 cm ALO REDDYTRAMBERNARDOKyle [facility] 12/26/2023 15:40:32 Date Recorded Body height Provider Name an d Address Organization Details Last Updated DateTime 01/20/2024 165.1 cm Deyanira Dallinjose l [facility] 01/20/2024 14:41:07 Date Recorded Body height Body mass index (BMI) Body weight Provider Name and Address Organization Details Last Updated DateTime 04/12/2024 165.1 cm 41.6 kg/m2 070395.09 g Deyanira Millerrickyjose l [facility] 04/12/2024 08:25:11 Social History None recorded. Functional Status None recorded. Mental Status None recorded. Family History Nothing Reported. Medical History No medical history recorded. Gynecological HistoryNo gynecological history recorded. Obstetrics History GPAL:G 0 P 0 0 0 0 Past Encounters Encounter ID Performer Location Encounter Start Date Encounter Closed Date Diagnosis/Indication Diagnosis SNOMED-CT Code Diagnosis ICD10 Code Diagnosis Note [id number] MD [facility] [address] [place] [address] 11/25/2023 09:54:09 12/14/2023 14:54:08 Osteoarthritis of left knee joint 2498622788 48527 M17.12 Osteoarthr itis of right knee joint 1720132943 11353 M17.11 [id number] Alicia Whiting, BRANDI [facility] [address] [place] [address] 11/29/2023 13:02:39 12/17/2023 04:07:18 Osteoarthritis of right knee joint 2020493539 37803 M17.11 [id number] Tom Ashley, PT [facility] [address] [place] [address] 12/02/2023 08:46:37 12/02/2023 09:05:28 Osteoarthritis of knee 287278538 M17.11 [id number] GINNY [facility] [address] [place] [address] 12/26/2023 15:28:11 01/17/2024 20:23:47 History of right total knee replacement 8665285978 644937 Z96.392 [id number] MD [facility] [address] [place] [address] 01/20/2024 14:15:35 02/01/2024 16:14:18 History of right total knee replacement 3723990880 138966 Z96.493 [id number] MD [facility] [address] [place] [address] 04/12/2024 08:09:58 05/03/2024 11:36:55 Pain of knee region 7173033242 M25.562 G89.29 Osteoarthr itis of left knee joint 2553007645 84149 M17.12 Health Concerns Section Related Observation LastModified by Organization Detai ls LastModified Time None Recorded Concern Status LastModified by Organization Details LastModified Time None Recorded Advance Directives Directive None Recorded Payers Encounter Date Sequence Insurance Name Policy Number Policy Melchor Covered Member ID Melchor Member ID Guarantor Name 12/02/2023 1 [facility] - DOS ON OR AFTER 2022 - [employer] OPTIONS (MEDICARE REPLACEMENT/ADV ANTAGE - HMO) Mary Stambuli [id number] Mary Stambuli 12/26/2023 1 [facility] - DOS ON OR AFTER 2022 - [employer] OPTIONS (MEDICARE REPLACEMENT/ADV ANTAGE - HMO) Mary Stambuli [id number] Mary Stambuli 01/20/2024 1 [facility] - DOS ON OR AFTER 2022 - ONE CARE (MEDICARE REPLACEMENT/ADV ANTAGE - HMO) Mary Stambuli [id number] Mary Stambuli 04/12/2024 1 [facility] - DOS ON OR AFTER 2022 - ONE CARE (MEDICARE REPLACEMENT/ADV ANTAGE - HMO) Mary Cody [id number] Mary Cody Notes Date Note Type Note Provider Name and Address Organization Details Recorded Time 12/02/2023 text/html Patient is 78 ye ar old female, with chronic history of knee pain and OA. Presents today for prehab visit for scheduled TKA on 12/08/23. Arrives today in a wheelchair. Reviewed post-operative mobility and mechanics with appropriate assistive device. Has 0 steps at home with 0 railings. Demonstrates good understanding of post-operative expectations and HEP. 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 Patient goal is to be able to walk again. Tom Ashley, PT [address] [facility] [address], [place], [address], [facility] 12/02/2023 15:46:13 12/26/2023 text/html I am seeing the patient today under the supervision of {{ Christina#}} who was available but who did not see the patient. HISTORY OF PRESENT ILLNESS The patient presents today for a follow-up, now two weeks status post {{Left Right*}} total knee arthroplasty. Happy with the results. No significant complaints of pain. Doing well with P.T. Patient continues with in home physical therapy and she is starting outpatient PT in about 2 weeks. She is continued with oxycodone, tramadol, Tylenol for pain relief. She is on Eliquis for DVT prophylaxis. Patient is utilizing a wheelchair to get around but has started using the walker for support. She wasn't very ambulatory prior to having knee replacement surgery. She continues with icing and elevating. ROM with therapy is {{ 0-99#}} degrees. PAST MEDICAL/SURGICAL HISTORY Reviewed today, otherwise unchanged per intake sheet. REVIEW OF SYSTEMS Systemic: No fever and no chills. Cardiovascular: No chest pain or discomfort. Pulmonary: No dyspnea. PHYSICAL FINDINGS General Appearance: Well developed. ?? In no acute distress. Musculoskeletal System: Lower Leg: General/bilateral: ?? Calves of both lower legs were not tender on palpation. Neurological: Oriented to time, place, and person. Gait And Stance: An operative sided antalgic gait was observed with assistive device. Psychiatric: Mood was appropriate to the affect. Range of motion today is 5-90 degrees. Moderate effusion noted Stable to varus/valgus stress. Extensor mechanism is intact. Normal sensation bilateral lower extremities Contralateral side shows no warmth, erythema, soft tissue swelling or effusion. TESTS X-rays ordered, obtained and reviewed at [facility] today, three views, reveals maintained alignment of the prosthetic components, no fractures or dislocations, excellent interface, patella tracking centrally it is unresurfaced. ASSESSMENT Progressing nicely two weeks status post {{Left Right*}} total knee arthroplasty. PLAN The patient is progressing nicely and will continue total knee precautions. Continue to work on range of motion and strengthening exercises. Follow-up in 1 month for re-evaluation, sooner if there is any complications. Arthur Anderson PA-C [address], [place], [address], [facility] 12/26/2023 16:12:45 01/20/2024 text/html History of prese nt illness:This patient follows up today and is now 6 weeks out from right total knee arthroplasty. Their pain is well controlled and they are progressing as expected with physical therapy. Able to do current activities without significant difficulty. They have no major complaints at this time and are satisfied with their current state of recovery.Past family, medical, social history and review of systems has been reviewed and updated, and is located in the patient? s chart. Uziel Solomon MD [address], [place], [address], [facility] 01/20/2024 15:58:38 04/12/2024 text/html History of prese nt illness:Complaint: Left knee painPain: The pain is severe, it is worsened with activity and has gotten to point where it limits the patient's ability to ambulate moderate distances without needing to rest for pain relief. The patient is limited in their regular daily and social activities as a result of this painNon-operative treatment: Patient has tried and failed anti-inflammatory pain medications, Tylenol, physical therapy, and injections. She has undergone this conservative treatment for many yearsMarjasmine is an extremely friendly and pleasant 78-year-old female who presents today for evaluation for her left knee. They have a known, longstanding history of left knee osteoarthritis and have undergone a lengthy course of conservative management with generalized failure of nonsurgical options. Their pain is severe and worsened with activity, it has gotten to the point where it is significantly interfering with their ability to perform activities of daily living as well as daily social tasks. They are interested in pursuing total knee arthroplasty for definitive relief of their pain from osteoarthritisPast family, medical, social history and review of systems has been reviewed and updated, and is located in the patient? s chart. Uziel Solomon MD [address], [place], [address], [facility] 04/12/2024 08:44:06 OBGyn Episode No OBEpisode recorded.
--- OUTSIDE RECORDS SUMMARY | 2024-05-23 13:34 | XMS_ITS | Encounter Summary ---
Author Organization [employer] Address [address] [place] [address] Care Team Providers Care Senior Quality Analyst Name Role Phone Karla Roche MD Primary Care Provider [phone] Encounter Details Date Type Department Care Team ([facility] st Contact Info) Description 10/04/2023 Telephone [facility] [address] [place] [address] Karla Roche MD [address] [place] [address] Social History Tobacco Use Types Packs/Day Years Used Date Smoking Tobacco: Never Smokeless Tobacco: Never Depression Answer Date Recorded Patient Health Questionnaire-9 Score 0 05/19/2023 Patient Health Questionnaire-9 Score 0 05/19/2023 Last PHQ-9: Questionnaire Data Not on file 0 05/19/2023 Housing Stability Answer Date Recorded What is your housing situation today? I have giorgimago john 05/10/[address] you [...] t he electric, gas, oil or water [employer] threatened to shut off services in your [...] encounter Miscellaneous Notes * Telephone Encounter - Rufino Moy - 10/04/2023 1:53 PM EDT Tc from [employer] calling in regards to home orders that were faxed over. They wanted to inform orders are listed for [facility] and it was mistakenly faxed to [employer]. If any questions you can contact [employer] at [phone]. documented in this encounter Plan of Treatment Not on file documented as of this encounter Visit Diagnoses Not on filedocumented in this encounter Additional Health Concerns Assessment Noted Time PHQ-9 Depression Total Score: 0 05/19/19 24 9:52 AM EST documented as of this encounter Care Teams Senior Quality Analyst Relationship Specialty Start Date End Date Karla Roche MD [address] [place] [address] PCP - General Family Medicine 12/13/16 [facility] 09/20/23 documented as of this encounter
--- OUTSIDE RECORDS SUMMARY | 2024-05-23 13:34 | XMS_ITS | Data Portability ---
Author Organization [employer] [facility], [email or web address] Address [address] [place] [address] Care Team Providers Care Meat Butcher Name Role Phone [facility] Referring Provider [phone] Assessment Encounter Date Assessment Date Assessment LastModified by Organization Details LastModified Time 07/14/2022 07/14/2022 I have reviewed and agree with the assessment and plan as documented by the golf coach. I provided real time medical direction for this encounter and was immediately available to provide additional phone based assistance as needed. History as noted by golf coach. Pt s/p recent parathyroidectomy in May for hyperparathyroidism . She takes daily calcium supplements. Visit requested today to check her POC Ca level. Pt's daughter reports that pt has no new symptoms and has been feeling well. On exam, pt appears comfortable. No current complaints. Vitals normal. POC BMP with iCalcium of 0.91. Other values normal. Impression: Pt's ionized Ca level today is mildly low at 0.91. She is already on Ca supplements and is currently asymptomatic. Pt's daughter reports that she has an appointment to speak with the pt's surgeon later today to discuss today's Ca level and to adjust her Ca supplement as indicated. Daughter will change pt's dose as instructed later today. Pt instructed to seek medical attention right away with any new symptoms, which are reviewed with pt and her daughter. btils Not available 07/14/2022 15:52:54 Plan of Treatment Reminders Order Date Submit Date Provider Last Modified By Organization Details Last Modified Time Details Appointments None recorded . Lab BMP, serum or plasma 023 07/15/19 23 btils [facility], [address] [place] [address], [place], [address], 12:27:45 Referral None recorded . Procedures None recorded . Surgeries None recorded . Imaging None recorded . Medication Orders None recorded . Patient TargetsNo targets recorded. Patient InstructionsNo instructions recorded. Reason for Referral None Reported. Results Created Date Observation Date Name Description Value Unit Range Abnormal Flag Note LastModifiedBy Organization Detail LastModifiedTime 07/15/19 23 07/14/2022 BMP, serum or plasm a BUN 23 Not Available Main - Ins [address], [address], 07/14/2022 12:26:57 07/15/19 23 07/14/2022 BMP, serum or plasm a Ca 0.91 (iCal) Not Available Main - [address], [address], 07/14/2022 12:26:57 07/15/19 23 07/14/2022 BMP, serum or plasm a CI- 103 Not Available Main - Ins [address], [address], 07/14/2022 12:26:57 07/15/19 23 07/14/2022 BMP, serum or plasm a CRE 1.3 Not Available Main - Ins [address], [address], 07/14/2022 12:26:57 07/15/19 23 07/14/2022 BMP, serum or plasm a GLU 93 Not Available Main - [facility] [address], [address], 07/14/2022 12:26:57 07/15/19 23 07/14/2022 BMP, serum or plasm a K+ 4.2 Not Available Main - [facility] [address], [address], 07/14/2022 12:26:57 07/15/19 23 07/14/2022 BMP, serum or plasm a Na+ 141 Not Available Main - Ins [address], [address], 07/14/2022 12:26:57 07/15/19 23 07/14/2022 BMP, serum or plasm a tCO2 28 Not Available Main - Ins [address], [address], 07/14/2022 12:26:57 Result Notes None recorded. Medical Equipment None Reported. Medications Name Sig Start Date Stop Date Status Note LastModified by Organization Details LastModified Time medbox status USE DIRECTED active Not Available Not Available No t Available atorvastatin 10 mg tablet TAKE ONE TABLET EVERY MORNING active Not Available Not Available No t Available aspirin 81 mg tablet,delay ed release TAKE ONE TABLET BY MOUTH EVERY MORNING active Not Available Not Available No t Available tramadol 50 mg tablet TAKE ONE TABLET EVERY TWELVE HOURS NEEDED active Not Available Not Available No t Available amlodipine 10 mg tablet TAKE ONE TABLET EVERY MORNING active Not Available Not Available No t Available furosemide 20 mg tablet TAKE ONE TABLET BY MOUTH IN THE MORNING AND EVENING active Not Available Not Available Not Available ibuprofen 600 mg tablet TAKE ONE TABLET THREE TIMES DAILY active Not Available Not Available No t Available calcitriol 0.25 mcg capsule TAKE ONE CAPSULE BY MOUTH EVERY MORNING active Not Available Not Available No t Available oxycodone 5 mg tablet TAKE ONE TABLET EVERY 6 HOURS NEEDED FOR PAIN active Not Available Not Available No t Available Arthritis Pain Relief (acetaminoph en) ER 650 mg tablet,exten d release TAKE 1 AND 1/2 TABLETS BY MOUTH THREE TIMES DAILY NEEDED active Not Available Not Available No t Available calcium 315 mg (as citrate)-vit mccormack D3 5 mcg (200 unit) tablet TAKE TWO TABLETS THREE TIMES DAILY IN THE MORNING, EVENING AND BEDTIME active Not Available Not Available No t Available Paxlovid 300 mg (150 mg x 2)-100 mg tablets in a dose pack TAKE 1 NIRMATRELVI R AND 1 RITONAVIR TABLET AT THE SAME TIME IN THE MORNING AND 1 NIRMATRELVI R AND 1 RITONAVIR TABLET AT THE SAME TIME IN THE EVENING active Not Available Not Available No t Available Vitals Date Recorded Heart rate Oxygen saturation Oxygen saturation in Arterial blood by Pulse oximetry Body weight Body temperature Respiratory rate Body weight Body temperature Respiratory rate Oxygen saturation Oxygen saturation in Arterial blood by Pulse oximetry Heart rate Systolic blood pressure Diastolic blood pressure Systolic blood pressure Diastolic blood pressure Provider Name and Address Organization Details Last Updated DateTime 3 74 /min 95 % 95 % 433557. 6 g 98.6 [degF] 14 /min 285693. 6 g 98.6 [degF] 14 /min 95 % 95 % 74 /min 147 mm[Hg] 67 mm[Hg] 147 mm[Hg] 67 mm[Hg] Not Available [facility] - production 3 12:36:33 Social History None recorded. Functional Status None recorded. Mental Status None recorded. Family History Nothing Reported. Medical History No medical history recorded. Gynecological HistoryNo gynecological history recorded. Obstetrics History GPAL:G 0 P 0 0 0 0 Past Encounters Encounter ID Performer Location Encounter Start Date Encounter Closed Date Diagnosis/Indication Diagnosis SNOMED-CT Code Diagnosis ICD10 Code Diagnosis Note [id number] Ezekiel Munoz MD Main - [facility] [address] [place] [address] 07/14/2022 12:20:30 07/16/2022 11:02:48 Hypocalcemia 5079194 E83.51 Health Concerns Section Related Observation LastModified by Organization Detai ls LastModified Time None Recorded Concern Status LastModified by Organization Details LastModified Time None Recorded Advance Directives Directive None Recorded Payers Encounter Date Sequence Insurance Name Policy Number Policy Melchor Covered Member ID Melchor Member ID Guarantor Name 07/14/2022 1 [facility] - DOS PRIOR TO 2022 - DUAL ELIGIBLE (MEDICARE REPLACEMENT/ADV ANTAGE - HMO) Mary Glo [id number] Mary Stashaylee Notes Date Note Type Note Provider Name and Address Organization Details Recorded Time 07/14/2022 text/html This was a supervised home visit with golf coach Bennett Morales. [facility] Nursing Assessment: Reason For Request: calcium level Chief Complaints: Electrolyte Imbalance Allergies: Unknown Comments: Member has SX to have her para thyroid removed in May. Member was then hospitalized for high calcium. Daughter feel that it may be high now as her fingers curving and rigid . Daughter is unable to take her to the hospital , has food poisonings Member denies sob and chest pain , O2 level 98% Verified identity by .................. .................. .................. .................. .................. .................. .................. ............... Social Work Supervisor Note From Bennett Morales: Pt presents A@Ox4 pink warm and dry. Visit scheduled for routine bloodwork since pt recent surgery. Pt had history of low calcium since the surgery. Pt has no complaints today. Denies CP SOB F/N/V/D . Baseline vitals assessed and recorded. Vitals stable. POC blooddraw . Low Ica at. 091 . [facility] [place] and patient advise to follow up with with whom she has an appt with later today. Pt educated on signs gavin would indicate the ED. .................. .................. .................. .................. .................. .................. .................. ............... Disposition: Fulfilled Ezekiel Munoz MD [address], [place], [address], [facility] 07/14/2022 15:54:24 OBGyn Episode No OBEpisode recorded.
--- OUTSIDE RECORDS SUMMARY | 2024-05-23 13:34 | XMS_ITS | Encounter Summary ---
Author Organization [employer] Address [address] [place] [address] Care Team Providers Care Pantomimist Name Role Phone Karla Roche MD Primary Care Provider [phone] Encounter Details Date Type Department Care Team ([facility] st Contact Info) Description 05/23/2024 11:15 AM EST Office Visit [facility]EDS [address] [place], [place] [id number] Karla Roche MD [address] [place], [place] [phone] Essential hypertension (Primary Dx); Arthralgia of both knees Social History Tobacco Use [...] AM EDT documented as of this encounter Last Filed Vital Signs Vital Sign Reading Time Taken Comments Blood Pressure 150/80 05/23/2024 11:10 AM EST Pulse 64 05/23/2024 11:10 AM EST Temperature 36.6 ??C (97.8 ??F) 05/23/2024 11:[address] Respiratory Rate 18 05/23/2024 11:10 AM EST Oxygen Saturation 98% 05/23/2024 11:10 AM EST Inhaled Oxygen Concentration - - Weight 117 kg (259 lb) 05/23/2024 11:10 AM EST Height - - Body Mass Index 42.12 06/08/2022 2:44 PM EST documented in this encounter Plan of Treatment Scheduled Orders Name Type Priority Associated Diagnoses Orde r Schedule Basic Metabolic Panel Lab Routine Essential hypertension Expected: 05/23/2024 (Approximate), Expires: 05/23/2025 Lipid Panel, Standard Lab Routine Essential hypertension Expected: 05/23/2024 (Approximate), Expires: 05/23/2025 Hepatic Function Panel Lab Routine Essential hypertension Expected: 05/23/2024 (Approximate), Expires: 05/23/2025 documented as of this encounter Visit Diagnoses Diagnosis Essential hypertension- Primary Unspecified essential hypertension Arthralgia of both knees documented in this encounter Additional Health Concerns Assessment Noted Time PHQ-9 Depression Total Score: 0 05/23/19 25 11:13 AM EST documented as of this encounter Care Teams Pantomimist Relationship Specialty Start Date End Date Karla Roche MD [address] [place] [address] PCP - General Family Medicine 12/13/16 [facility] 09/20/23 documented as of this encounter
--- OUTSIDE RECORDS SUMMARY | 2024-05-23 13:34 | XMS_ITS | Clinical Summary ---
Author Organization [employer] Address [address] [facility] [address] [place] [address] Care Team Providers Care Pulp Screen Operator Name Role Phone Karla Roche MD Primary Care Provider [phone] Allergies Active Allergy Reactions Criticality Noted Date Comments Lisinopril Cough Medium 12/17/2016 Medications Romosozumab-aqqg (EVENITY SC) Inject 210 mg under the skin every 28 (twenty-eight) days. 023 Active Calcium Citrate-Vitamin D 315-5 MG-MCG tablet TAKE TWO TABLETS THREE TIMES DAILY IN THE MORNING, EVENING AND BEDTIME 023 Active furosemide (Lasix) 20 MG tabletIndication s:Essential hypertension Take 1 tablet (20 mg) by mouth 2 times daily. 60 tablet 1 023 Active Arthritis Pain Relief 650 MG ER tablet Take 1 tablet (650 mg) by mouth every 8 (eight) hours if needed for mild pain. TAKE 1-2 TABLETS BY MOUTH THREE TIMES DAILY NEEDED 30 tablet 3 024 Active alendronate (Fosamax) 70 MG tablet 70 mg. 023 2024 Active fondaparinux (Arixtra) 2.5 MG/0.5ML solution INJECT 2.5 MG (0.5 ML) SUBCUTANEOUSLY EVERY 24 HOURS Active ondansetron ODT (Zofran-ODT) 4 MG disintegrating tablet TAKE ONE TABLET EVERY TWELVE HOURS NEEDED FOR NAUSEA AND VOMITING Active pantoprazole (ProtoNix) 40 MG EC tablet Take 40 mg by mouth in the morning. 024 Active sucralfate (Carafate) 1 GM/10ML suspension TAKE 10 ml's BY MOUTH TWICE DAILY Active amLODIPine (Norvasc) 10 MG tablet TAKE ONE TABLET EVERY MORNING 90 tablet 1 Active atorvastatin (Lipitor) 10 MG tablet TAKE ONE TABLET EVERY MORNING 90 tablet 3 Active traMADol (Ultram) 50 MG tabletIndication s:Arthralgia of both knees Take 1 tablet (50 mg) by mouth every 12 (twelve) hours if needed for severe pain. 60 tablet Active aspirin 81 MG EC tablet Take 1 tablet (81 mg) by mouth Once per day. 30 tablet 11 025 2025 Active traMADol (Ultram) 50 MG tabletIndication s:Arthralgia of both knees Take 1 tablet (50 mg) by mouth Once per day. 60 tablet 024 2024 Discontinued(D uplicate order (will not trigger notification to Pharmacy)) Active Problems Problem Noted Date Diagnosed Date Arthralgia of both knees 05/19/2023 Urge incontinence of urine 06/17/2022 Aneurysm of ascending aorta without rupture 10/2022 Snoring 06/08/2022 Assessment & Plan (06/08/2022 10:51 PM EST): Will place order for sleep study Irritation of rectum 06/08/2022 Assessment & Plan (06/08/2022 10:51 PM EST): Will order Desitin cream for irritation Hyperparathyroidism 01/09/2021 Hypercalcemia 01/09/2021 Essential hypertension 11/04/2020 Assessment & Plan (06/08/2022 10:50 PM EST): Controlled, reinforced low sodium diet, she will continue on furosemide 20mg BID, will refer to cardiology Encounters Date Type Department Care Team Description 05/23/2024 11:15 AM EST Office Visit [facility] MED & PEDS [address] [place] [address] Karla Roche MD Essential hypertension (Primary Dx); Arthralgia of both knees 05/23/2024 Travel 05/08/2024 Telephone [facility] [address] [place] [address] Karla Roche MD Med Refill 04/19/2024 Refill [facility] PEDS [address] [place] [address] Karla Roche MD Arthralgia of both knees 04/19/2024 Refill [facility] [address] [place] [address] Karla Roche MD Arthralgia of both knees from Last 3 Months Immunizations Name Administration Dates Next Due Influenza injectable quadrivalent preservative f ree 05/19/2023,04/22/2022 Moderna Covid-19 Vaccine 12+ 09/17/2020,08/21/19 21 Pneumococcal Conjugate PCV 13 01/20/2018 Tdap 09/13/2017 Social History Tobacco Use Types Packs/Day Years Used Date Smoking Tobacco: Never Smokeless Tobacco: Never Tobacco Cessation:Counseling Given: Not Answered Depression Answer Date Recorded Patient Health Questionnaire-9 [...] Orientation Straight 03/01/2022 10 :32 AM EDT Last Filed Vital Signs Vital Sign Reading Time Taken Comments Blood Pressure 150/80 05/23/2024 11:10 AM EST Pulse 64 05/23/2024 11:10 AM EST Temperature 36.6 ??C (97.8 ??F) 05/23/2024 11:[address] Respiratory Rate 18 05/23/2024 11:10 AM EST Oxygen Saturation 98% 05/23/2024 11:10 AM EST Inhaled Oxygen Concentration - - Weight 117 kg (259 lb) 05/23/2024 11:10 AM EST Height 167 cm (5' 5.75 ) 06/08/2022 2:44 PM EST Body Mass Index 42.12 06/08/2022 2:44 PM EST Plan of Treatment Health Maintenance Due Date Last Done Comments Hepatitis C Screening 07/11/1963 Zoster Vaccines (1 of 2) 07/11/1997 Pneumococcal Vaccine: 65+ Years (2 of 2 - PPSV23 or PCV20) 01/20/2019 01/20/2018 RSV Patients and Patients Aged 60 years or older (1 - 1-dose 75+ series) 07/11/2022 Influenza Vaccine (#1) 2024 , 04/22/2022 SDOH Screening 05/10/2024 05/10/2023 Tobacco Screening 05/19/2024 05/19/2023 Alcohol/Substance Use Screening 05/23/2025 05/23/2024 COVID-19 Vaccine (3 - 2023-2 5 season) 2025 09/17/2020, 08/20/2020 Postponed from 01/01/2024 (Patient Refused) Depression Screening 05/23/2025 05/23/2024, 05/23/2024 DTaP/Tdap/Td Vaccines (2 - T d or Tdap) 09/14/2027 09/13/2017 Lipid Panel 11/30/2027 11/29/2022, 04/22/2022, 08/13/2020 HIB Vaccines Aged Out No longer eligi ble based on patient's age to complete this topic HPV Vaccines Aged Out No longer eligi ble based on patient's age to complete this topic Hepatitis A Vaccines Aged Out No long er eligible based on patient's age to complete this topic Hepatitis B Vaccines Aged Out No long er eligible based on patient's age to complete this topic IPV Vaccines Aged Out No longer eligi ble based on patient's age to complete this topic Meningococcal Vaccine Aged Out No kai ana eligible based on patient's age to complete this topic RSV under 20 months Aged Out No longe r eligible based on patient's age to complete this topic Rotavirus Vaccines Aged Out No longer eligible based on patient's age to complete this topic Procedures Procedure Name Priority Date/Time Associated Diagnosis Comments LIPID PANEL, STANDARD Routine 11/29/2022 11:00 AM EDT from Last 3 Months or Most Recently Relevant to Health Maintenance Results * Lipid Panel, Standard (11/29/2022 11:00 AM EDT) Triglycerides 54 mg/dL [facility] Comment:Desirable Triglyceri de: less than 150 mg/dLBorderline High Triglyceride 150-199 mg/dLHigh Triglyceride: 200-499 mg/dLVery High Triglyceride: greater than or equal to 5OO mg/dL Cholesterol 160 mg/dL [facility] Comment:Desirable Cholestero l: less than 200 mg/dLBorderline High Cholesterol: 200-239 mg/dLHigh Cholesterol: greater than 239 mg/dL LDL Cholesterol Calculated 103 mg/dl [facility] Comment:Desirable LDL: less than 100 mg/dLNear Optimal/Above Optimal LDL: 110- 129 mg/dLBorderline High LDL: 130-159 mg/dLHigh LDL: 160-189 mg/dLVery High LDL: greater than or equal to 190 mg/dL HDL Cholesterol 47 mg/dL [facility] Comment:Desirable HDL: great er than 40 mg/dL Note: This HDL assay may give artificially low results in patients with liver disease. 11/29/2022 11:0 0 AM EDT 11/29/2022 11:00 AM EDT us Generic External Data Provider LAB BLOOD ORDERAB LES Final Result [facility] [address] [place] [address] [phone] from Last 3 Months or Most Recently Relevant to Health Maintenance Insurance [facility] Advance Directives Documents on File Type Date Recorded Patient Devops Expl anation HealthCare Proxy 11/29/2022 HCP Care Teams Pulp Screen Operator Relationship Specialty Start Date End Date Karla Roche MD [address] [place] [id number] PCP - General Family Medicine 12/13/16 [facility] 09/20/23
--- OUTSIDE RECORDS SUMMARY | 2024-05-23 13:35 | XMS_ITS | Encounter Summary ---
Author Organization [employer] Address [address] [facility] 7t [place] [address] Care Team Providers Care Chief Engineer Name Role Phone Karla Roche MD Primary Care Provider [phone] Reason for Visit * Reason Onset Date Comments Appointment Request 04/14/2023 Encounter Details Date Type Department Care Team ([facility] Contact Info) Description 04/14/2023 Telephone [facility] MEDICINE [address] [place] [address] Karla Roche MD [address] [place] [address] Appointment Request Social History Tobacco Use Types Packs/Day Years Used Date Smoking Tobacco: Never Smokeless Tobacco: Never Depression Answer Date Recorded Patient Health Questionnaire-9 Score 0 04/22/2022 Housing Stability Answer Date Recorded What is your housing situation today? I have giorgi john 02/16/[address] you li ve. Do you have problems with any of the following? None of the above 02/16/2023 Food Insecurity Answer Date Recorded Within the past 12 months, y ou worried that your food would run out before you got money to buy more: Never True 02/16/2023 Within the past 12 months,th e food you bought just didn't last and you didn't have enough money to get more: Never True Transportation Answer Date Recorded In the past 12 months, has l ack of transportation kept you from medical appts, meetings, work or from getting things needed for daily living? No 02/16/2023 Utilities Answer Date Recorded In the past 12 months, has t he electric, gas, oil or water company threatened to shut off services in your home? No 02/16/2023 Depression Answer Date Recorded Patient Health Questionnaire-2 Score 0 04/22/2022 Comments Unknown Sex and Gender Information Value Date Recorded Sex Assigned at Female 03/01/2022 10:32 AM EDT Legal Sex Female 10:32 AM EDT Gender Identity Female 03/01/2022 10:32 AM EDT Sexual Orientation Straight 03/01/2022 10 :32 AM EDT documented as of this encounter Miscellaneous Notes * Telephone Encounter - Madhavbrett Devonte - 04/14/2023 9:17 AM EST Tc from pt daughter ramsey requesting a PE appt for program and [facility] Medical Care Evaluation Specialist attempted to scheduled for 05/31/22 however declined states needs sooner appt. Please contact at [phone] documented in this encounter Plan of Treatment Not on file documented as of this encounter Visit Diagnoses Not on filedocumented in this encounter Additional Health Concerns Assessment Noted Time PHQ-9 Depression Total Score: 0 04/22/20 22 10:55 AM EST documented as of this encounter Care Teams Chief Engineer Relationship Specialty Start Date End Date Karla Roche MD [address] [place] [id number] PCP - General Family Medicine 12/13/16 [facility] 09/20/23 documented as of this encounter
--- OUTSIDE RECORDS SUMMARY | 2024-05-23 13:35 | XMS_ITS | Encounter Summary ---
Author Organization [employer] Address [address] [facility] 7t [place] [address] Care Team Providers Care Rand Sewer Name Role Phone Karla Roche MD Primary Care Provider [phone] Reason for Visit * Reason Comments Med Refill Encounter Details Date Type Department Care Team ([facility] st Contact Info) Description 09/23/2023 Refill [facility] MED & PEDS [address] [place], [place] [phone] Karla Roche MD 505 [place] [address] Chronic pain of both knees Social History [...] documented as of this encounter Care Teams Rand Sewer Relationship Specialty Start Date End Date Karla Roche MD [address] [place] [address] PCP - General Family Medicine 12/13/16 [facility] 09/20/23 documented as of this encounter
--- OUTSIDE RECORDS SUMMARY | 2024-05-23 13:35 | XMS_ITS | Encounter Summary ---
Author Organization [employer] Address [address] [facility] 7t [place] [address] Care Team Providers Care Service Support Representative Name Role Phone Karla Roche MD Primary Care Provider [phone] Reason for Visit * Reason Onset Date Comments FYI 09/15/2023 Encounter Details Date Type Department Care Team ([facility] Contact Info) Description 09/15/2023 Telephone [facility] MEDICINE [address] [place] [address] Karla Roche MD [address] [place] [address] Social History Tobacco Use Types Packs/Day Years [...] encounter Miscellaneous Notes * Telephone Encounter - Elsi Leonardo RN - 09/20/2023 9:25 AM EDT Unable to send recent HDF notes as pt canceled appt and has not r/s. * Telephone Encounter - Julian Hernadez - 09/15/2023 2:47 PM EDT Tc from [facility] calling to report that they are able to admit the patient to homecare but would need up to date office notes from appt on 09/18 and it can be faxed to [phone] documented in this encounter Plan of Treatment Not on file documented as of this encounter Visit Diagnoses Not on filedocumented in this encounter Additional Health Concerns Assessment Noted Time PHQ-9 Depression Total Score: 0 05/19/19 9:52 AM EST documented as of this encounter Care Teams Service Support Representative Relationship Specialty Start Date End Date Karla Roche MD [address] [place] [address] PCP - General Family Medicine 12/13/16 [facility] 09/20/23 documented as of this encounter
--- OUTSIDE RECORDS SUMMARY | 2024-05-23 13:35 | XMS_ITS | Encounter Summary ---
Author Organization [employer] Address [address] [facility] 7t [place] [address] Care Team Providers Care Ice Skating Teacher Name Role Phone Karla Roche MD Primary Care Provider Encounter Details Date Type Department Care Team ([facility] st Contact Info) Description 04/22/2022 Orders Only [facility] MEDICINE [address] [place] [address] Karla Roche MD 505 [place] [address] Social History Tobacco Use Types Packs/Day Years Used Date Smoking Tobacco: Never Smokeless Tobacco: Never Depression Answer Date Recorded Patient Health Questionnaire-9 Score 0 04/22/2022 Depression Answer Date Recorded Patient Health Questionnaire-2 Score 0 04/22/2022 Comments Unknown Sex and Gender Information Value Date Recorded Sex Assigned at Female 03/01/2022 10:32 AM EDT Legal Sex Female 10:32 AM EDT Gender Identity Female 03/01/2022 10:32 AM EDT Sexual Orientation Straight 03/01/2022 10 :32 AM EDT COVID-19 Exposure Response Date Recorded In the last 10 days, have yo u been in contact with someone who was confirmed or suspected to have Coronavirus/COVID-19? No / Unsure 04/22/2022 10:21 AM EST documented as of this encounter Plan of Treatment Not on file documented as of this encounter Visit Diagnoses Not on filedocumented in this encounter Additional Health Concerns Assessment Noted Time PHQ-9 Depression Total Score: 0 04/22/20 10:55 AM EST documented as of this encounter Care Teams Ice Skating Teacher Relationship Specialty Start Date End Date Karla Roche MD [address] [place] [phone] PCP - General Family Medicine 12/13/16 [facility] 09/20/23 documented as of this encounter
--- OUTSIDE RECORDS SUMMARY | 2024-05-23 13:35 | XMS_ITS | Encounter Summary ---
Author Organization [employer] Address [address] [place] [address] 7 [place] [address] Care Team Providers Care Audiology Director Name Role Phone Karla Roche MD Primary Care Provider [phone] Encounter Details Date Type Department Care Team ([facility] st Contact Info) Description 12/20/2022 [facility] Information Management [address] [place], [place] [phone] Karla Roche MD 505 [place], [place] [phone] Social History Tobacco Use Types Packs/Day Years [...] documented as of this encounter Care Teams Audiology Director Relationship Specialty Start Date End Date Karla Roche MD 230 [place], [place] [phone] PCP - General Family Medicine 12/13/16 [facility] 09/20/23 documented as of this encounter
--- OUTSIDE RECORDS SUMMARY | 2024-05-23 13:35 | XMS_ITS | Encounter Summary ---
Author Organization [employer] Address [address] [facility] 7t [place] [address] Care Team Providers Care Electoral Officer Name Role Phone Karla Roche MD Primary Care Provider [phone] Reason for Visit * Reason Comments Med Refill Encounter Details Date Type Department Care Team ([facility] st Contact Info) Description 06/28/2022 Refill [facility] CHC MED & PEDS [address] [place], [place] [phone] Mitchell Foote MD 505 [place] [address] Essential hypertension Social History Tobacco Use Types Packs/Day Years [...] suspected to have Coronavirus/COVID-19? No / Unsure 06/08/2022 2:20 PM EST documented as of this encounter Plan of Treatment Not on file documented as of this encounter Visit Diagnoses Diagnosis Essential hypertension Unspecified essential hypertension documented in this encounter Additional Health Concerns Assessment Noted Time PHQ-9 Depression Total Score: 0 04/22/20 22 10:55 AM EST documented as of this encounter Care Teams Electoral Officer Relationship Specialty Start Date End Date Karla Roche MD 230 [place] [address] PCP - General Family Medicine 12/13/16 [facility] 09/20/23 documented as of this encounter
--- OUTSIDE RECORDS SUMMARY | 2024-05-23 13:35 | XMS_ITS | Encounter Summary ---
Author Organization [employer] Address [address] [facility] 7t [place] [address] Care Team Providers Care Blue Line Hanger Name Role Phone Karla Roche MD Primary Care Provider [phone] Reason for Visit * Reason Onset Date Comments ER Follow-up 09/05/2023 Encounter Details Date Type Department Care Team ([facility] st Contact Info) Description 09/05/2023 Telephone [facility] CHC MED & PEDS 505 [place], [place] [phone] Karla Roche MD 505 [place] [address] ER Follow-up Social History Tobacco Use Types Packs/Day Years [...] encounter Miscellaneous Notes * Telephone Encounter - Carlita Roach - 09/05/2023 2:48 PM EDT Tc from pt requesting a HDF appt. Advised to f/u within a week. Hospital: [facility] Date of admission: 08/29 Discharge date: 08/30 Diagnosed: Weight loss surgery Please contact daughter at [phone] documented in this encounter Plan of Treatment Not on file documented as of this encounter Visit Diagnoses Not on filedocumented in this encounter Additional Health Concerns Assessment Noted Time PHQ-9 Depression Total Score: 0 05/19/19 24 9:52 AM EST documented as of this encounter Care Teams Blue Line Hanger Relationship Specialty Start Date End Date Karla Roche MD [address] [place] [address] PCP - General Family Medicine 12/13/16 [facility] 09/20/23 documented as of this encounter
--- OUTSIDE RECORDS SUMMARY | 2024-05-23 13:35 | XMS_ITS | Encounter Summary ---
Author Organization [employer] Address [address] [facility] 7t [place] [address] Care Team Providers Care Medical Attendant Name Role Phone Karla Roche MD Primary Care Provider [phone] Reason for Visit * Reason Comments Med Refill Encounter Details Date Type Department Care Team ([facility] st Contact Info) Description 09/23/2023 Refill [facility] CHC MED & PEDS [address] [place], [place] [phone] Karla Roche MD 505 [place] [address] Chronic pain of both knees Social History [...] documented as of this encounter Care Teams Medical Attendant Relationship Specialty Start Date End Date Karla Roche MD [address] [place] [address] PCP - General Family Medicine 12/13/16 [facility] 09/20/23 documented as of this encounter
--- OUTSIDE RECORDS SUMMARY | 2024-05-23 13:35 | XMS_ITS | Encounter Summary ---
Author Organization [employer] Address [address] [facility] 7t [place] [address] Care Team Providers Care Hay Farmer Name Role Phone Karla Roche MD Primary Care Provider [phone] Reason for Visit * Reason Onset Date Comments Referral 09/12/2023 Encounter Details Date Type Department Care Team ([facility] st Contact Info) Description 09/12/2023 Telephone [facility] MEDICINE 230 [place] [address] Karla Roche MD [address] [place] [address] Referral Social History Tobacco Use Types Packs/Day Years [...] encounter Miscellaneous Notes * Telephone Encounter - Karla Roche MD - 09/14/2023 9:59 AM EDT Sent * Telephone Encounter - uJ Blum - 09/12/2023 2:29 PM EDT Tc from daughter requesting to renew referral for PT at [facility] To be fax to [facility] documented in this encounter Plan of Treatment Not on file documented as of this encounter Visit Diagnoses Not on filedocumented in this encounter Additional Health Concerns Assessment Noted Time PHQ-9 Depression Total Score: 0 05/19/19 24 9:52 AM EST documented as of this encounter Care Teams Hay Farmer Relationship Specialty Start Date End Date Karla Roche MD [address] [place] [address] PCP - General Family Medicine 12/13/16 [facility] 09/20/23 documented as of this encounter
--- OUTSIDE RECORDS SUMMARY | 2024-05-23 13:35 | XMS_ITS | Encounter Summary ---
Author Organization [employer] Address [address] [facility] [address] 7t [place] [address] Care Team Providers Care Pipe Organ Tuner And Repairer Name Role Phone Karla Roche MD Primary Care Provider [phone] Encounter Details Date Type Department Care Team ([facility] st Contact Info) Description 06/17/2022 Orders Only [facility] MEDICINE [address] [place] [address] Karla Roche MD 505 [place] [address] Social History Tobacco Use Types Packs/Day Years [...] documented as of this encounter Care Teams Pipe Organ Tuner And Repairer Relationship Specialty Start Date End Date Karla Roche MD [address] [place] [address] PCP - General Family Medicine 12/13/16 [facility] 09/20/23 documented as of this encounter
--- OUTSIDE RECORDS SUMMARY | 2024-05-23 13:36 | XMS_ITS | Clinical Summary ---
Author Organization [facility] Address [address] [facility] [address] [place] [phone] Phone Care Team Providers Care Consumer Affairs Director Name Role Phone Unavailable Primary Care Provider Unavailabl e Medications SM Arthritis Pain Reliever 650 MG 8 hr tablet Take 3 tablets by mouth 3 times a day 03/05/2021 Active amLODIPine (NORVASC) 10 MG tablet Take 10 mg by mouth every morning 03/04/2021 Active Aspirin Low Dose 81 MG EC tablet Take 81 mg by mouth every morning 03/04/2021 Active atorvastatin (LIPITOR) 10 MG tablet Take 10 mg by mouth every morning 03/04/2021 Active furosemide (LASIX) 20 MG tablet Take 1 tablet by mouth 1 (one) time each day 03/04/2021 Active traMADol (ULTRAM) 50 MG tablet Take 1 tablet by mouth every 6 (six) hours 12/03/2020 Active Active Problems Problem Noted Date Diagnosed Date Hypertension 03/11/2021 Hyperlipidemia 03/11/2021 Stage 3a chronic kidney disease 03/11/2021 Urinary tract infection 03/11/2021 Hypercalcemia 03/11/2021 Extended spectrum beta lactamase (ESBL) resistan ce 03/11/2021 Social History Tobacco Use Types Packs/Day Years Used Date Smoking Tobacco: Never Assessed Comments Unknown Sex and Gender Information Value Date Recorded Sex Assigned at Not on file Legal Sex Female 10:51 AM EDT Gender Identity Not on file Sexual Orientation Not on file Plan of Treatment Health Maintenance Due Date Last Done Comments Pneumococcal Vaccine: 65+ Ye ars (1 of 2 - PCV) 07/11/1951 Influenza Vaccine (#1) 2024 Hepatitis B Vaccine Aged Out No longe r eligible based on patient's age to complete this topic [place]
--- OUTSIDE RECORDS SUMMARY | 2024-05-23 13:36 | XMS_ITS | Referral Summary ---
Author Organization [facility] Address [address] [place] [address] Care Team Providers Care Front Office Supervisor Name Role Phone Karla Roche Primary Care Provider [phone] Allergies Active Allergy Reactions Criticality Noted Date Comments Lisinopril Cough 11/04/2020 Medications amLODIPine (NORVASC) 10 mg tablet Take 10 mg by mouth. 4 8 Active ASPIR-LOW 81 mg EC tablet Take 81 mg by mouth. 11 7 Active diclofenac (VOLTAREN) 50 mg EC tablet Take 50 mg by mouth. 3 8 Active furosemide (LASIX) 20 mg tablet Take 20 mg by mouth. 3 8 Active hydroCHLOROthia zide (HYDRODIURIL) 25 mg tablet take 1 tablet by oral route 2 times every day 7 7 Active simvastatin (ZOCOR) 10 mg tablet Take 10 mg by mouth every evening. 4 8 Active traMADol (ULTRAM) 50 mg tablet TAKE ONE TABLET EVERY TWELVE HOURS 0 8 Active levoFLOXacin (LEVAQUIN) 750 mg tablet Take 750 mg by mouth daily. Active cholecalciferol (VITAMIN D3) 1,000 unit tablet Take 1,000 Units by mouth daily. 3 8 Active mupirocin (BACTROBAN) 2% ointment Apply topically to the affected area 2 times a day. Apply to bilateral nasal vestibule twice a day starting 5 days prior to surgery 22 g 1 Active Additional Information Patient not taking.Reported on 03/05/2021 potassium chloride ER (KLOR-CON) 20 mEq tablet Take 1 tablet (20 mEq total) by mouth once for 1 dose. 1 tablet Active Active Problems Problem Noted Date Diagnosed Date Primary osteoarthritis of both knees 11/04/2020 Essential hypertension 11/04/2020 Other hyperlipidemia 11/04/2020 Preoperative examination 11/04/2020 Social History Tobacco Use Types Packs/Day Years Used Date Smoking Tobacco: Never Smokeless Tobacco: Never Alcohol Use Standard Drinks/Week Comments No 0 (1 standard drink = 0.6 oz pur e alcohol) Comments Unknown Sex and Gender Information Value Date Recorded Sex Assigned at Not on file Legal Sex Female 9:41 AM EST Gender Identity Not on file Sexual Orientation Not on file Last Filed Vital Signs Vital Sign Reading Time Taken Comments Blood Pressure 126/82 11/04/2020 2:25 PM EDT Pulse 87 11/04/2020 2:25 PM EDT Temperature 36.7 ??C (98.1 ??F) 06/03/2017 9:37 AM ES T Respiratory Rate - - Oxygen Saturation 97% 11/04/2020 2:25 PM EDT Inhaled Oxygen Concentration - - Weight 110.2 kg (243 lb) 11/18/2020 2:24 PM EDT Height 165.1 cm (5' 5 ) 11/06/2020 10:35 AM EDT Body Mass Index 40.44 11/06/2020 10:35 AM EDT Plan of Treatment Not on file Procedures * Due to [place] [employer] law, this organization might not be sharing negative HIV tests. Procedure Name Priority Date/Time Associated Diagnosis Comments BASIC METABOLIC PANEL Routine 11/18/2020 1:14 PM EDT Preop testing Acute pain of right knee from Last 3 Months or Most Recently Relevant to Health Maintenance Results * Due to [place] [employer] law, this organization might not be sharing negative HIV tests. * (ABNORMAL) Basic Metabolic Panel (11/18/2020 1:14 PM EDT) NA 139 135 - 145 mmol/L 11/18/2020 3:47 PM EDT [facility] K 3.0(LL) 3.5 - 5.3 mmol/L 11/18/2020 3:47 PM [facility] Comment:Verified by repeat a nalysisi Cl 100 97 - 110 mmol/L 11/18/2020 3:47 PM [facility] CO2 28 24 - 32 mmol/L 11/18/2020 3:47 PM [facility] BUN 38(H) 7 - 23 mg/dL 11/18/2020 3:47 PM [facility] Creatinine 1.29(H) 0.50 - 1.20 mg/dL 11/18/2020 3:47 PM [facility] Glucose 98 70 - 99 mg/dL 11/18/2020 3:47 PM [facility] Calcium 10.8(H) 8.7 - 10.7 mg/dL 11/18/2020 3:47 PM [facility] Anion Gap 11 5 - 15 11/18/2020 3:47 PM [facility] eGFR Non- 41(L) >=90 mL/min/BS A 11/18/2020 3:47 PM [facility] eGFR 47(L) >=90 mL/min/BS A 11/18/2020 3:47 PM [facility] Comment: Units = mL/min/1.73 m2 Glomerular Filtration Rate (GFR) is estimated based on the CKD-EPI Creatinine Equation (2009). Stage ?Description ? GFR 1 ? Normal ? >=90 mL/min/BSA 2 ? Mildly decreased GFR ? 60-89 mL/min/BSA 3 ? Moderately decreased GFR ? 30-59 mL/min/BSA 4 ? Severely decreased GFR ? 15-29 mL/min/BSA 5 ? Kidney Failure ? <15 mL/min/BSA Blood Structure of peripheral vein / Unknown Venipuncture / Unknown 11/18/2020 1:14 PM EDT 11/18/2020 2:58 PM EDT us Castillo Cline MD LAB BLOOD ORDERABLES Final Result [facility] [address] [place] [address], from Last 3 Months or Most Recently Relevant to Health Maintenance [place] [address] Care Teams Front Office Supervisor Relationship Specialty Start Date End Date Karla Roche [address] [place] [id number] PCP - General Family Medicine 05/20/17
--- OUTSIDE RECORDS SUMMARY | 2024-05-23 13:36 | XMS_ITS | Clinical Summary ---
Author Organization [facility] Address [address] [place] [address] Care Team Providers Care Dairy Technician Name Role Phone Karla Roche Primary Care Provider [phone] Allergies Active Allergy Reactions Criticality Noted Date [...] 11/06/2020 10:35 AM EDT Plan of Treatment Health Maintenance Due Date Last Done Comments Hepatitis C Screening 1945 Osteoporosis Screening 07/11/1997 Zoster Vaccines (1 of 2) 07/11/1997 Pneumococcal Vaccine: 65+ Years (2 of 2 - PPSV23 or PCV20) 01/20/2019 01/20/2018 Basic Metabolic Panel 11/18/2021 11/18/2020 , 09/18/2020 RSV Vaccine (60+ years old and patients) (1 - 1-dose 75+ series) 07/11/2022 COVID-19 Vaccine ( - 2023-2 5 season) 2024 09/17/2020, 08/20/2020 Influenza Vaccine (#1) 2024 Alcohol/Substance Use Screening 05/02/2024 Depression Screening and Follow-Up 05/02/2024 Health Care Proxy Review 05/02/2024 Social Drivers of Health Annual Screening 05/02/2024 DTaP,Tdap,and Td Vaccines (2 - Td or Tdap) 09/14/2027 09/13/2017 Hepatitis B Vaccines Aged Out No long er eligible based on patient's age to complete this topic Procedures * Due to [facility] law, this organization might not be sharing negative HIV tests. Procedure Name Priority Date/Time Associated Diagnosis Comments BASIC METABOLIC PANEL Routine 11/18/2020 1:14 PM EDT Preop testing Acute pain of right knee from Last 3 Months or Most Recently Relevant to Health Maintenance Results * Due to [facility] law, this organization might not be sharing negative HIV tests. * (ABNORMAL) Basic Metabolic Panel (11/18/2020 1:14 PM EDT) NA 139 135 - 145 mmol/L 11/18/2020 3:47 PM EDT [facility] K 3.0(LL) 3.5 - 5.3 mmol/L 11/18/2020 3:47 PM EDT [facility] Comment:Verified by repeat a nalysisi Cl 100 97 - 110 mmol/L 11/18/2020 3:47 PM EDT [facility] CO2 28 24 - 32 mmol/L 11/18/2020 3:47 PM EDT [facility] BUN 38(H) 7 - 23 mg/dL 11/18/2020 3:47 PM EDT [facility] Creatinine 1.29(H) 0.50 - 1.20 mg/dL 11/18/2020 3:47 PM EDT [facility] Glucose 98 70 - 99 mg/dL 11/18/2020 3:47 PM EDT [facility] Calcium 10.8(H) 8.7 - 10.7 mg/dL 11/18/2020 3:47 PM EDT [facility] Anion Gap 11 5 - 15 11/18/2020 3:47 PM EDT [facility] eGFR Non- 41(L) >=90 mL/min/BS A 11/18/2020 3:47 PM EDT [facility] eGFR 47(L) >=90 mL/min/BS A 11/18/2020 3:47 PM EDT [facility] Comment: Units = mL/min/1.73 m2 [...] Cline MD LAB BLOOD ORDERABLES Final Result [facility] [address] [place] [address], [place] from Last 3 Months or Most Recently Relevant to Health Maintenance Insurance [facility] Care Teams Dairy Technician Relationship Specialty Start Date End Date KaleyRickKarla [address] [place] [phone] PCP - General Family Medicine 05/20/17
[2024-05-23 14:38] LABS: Alanine Aminotransferase 13 U/L (0-31); Albumin Level 3.8 g/dL (3.5-5.0); Alkaline Phosphatase 75 U/L (39-117); Anion Gap 9 (12-20); Aspartate Amino Transferase 20 U/L (5-31); Bilirubin Direct 0.4 mg/dL (0.0-0.5); Bilirubin Total 1.1 mg/dL (0.0-1.0); Blood Urea Nitrogen 25 mg/dL (9-16); Calcium 9.5 mg/dL (8.4-10.2); Carbon Dioxide 30 mmol/L (22-29); Chloride 104 mmol/L (96-108); Cholesterol 178 mg/dL (<200); Estimated Glomerular Filt Rate 53; Glucose Random 99 mg/dL (60-115); HDL Cholesterol 44 mg/dL (>40); LDL Cholesterol Calculated 118 mg/dL (<100); Potassium 4.4 mmol/L (3.3-5.1); Sodium 139 mmol/L (135-145); Total Protein 7.5 g/dL (6.5-8.0); Triglycerides 82 mg/dL (<150)
== END 2024-05-23 11:42 | disposition home or self-care (01) ==
LOC: HO.CHCLDS 11:41
PROVIDERS: Visit Provider Student in an Organized Health Care Education/Training Program
DX: I10 Essential (primary) hypertension (principal)
CPT/HCPCS: 36415; 80048; 80061; 80076

== ENCOUNTER 2024-07-24 10:10 | Outpatient (AMB) | payer OTHER, SELFPAY ==
--- NOTE | 2024-07-24 09:13 | A.OFFVIS_ITS ---
VS Expanded 07/24/24 09:14 Height 5 ft 5 in Weight 234 lb BMI 38.9 Intake Visit Reasons: (TV) PO LSG 08/30/23 Stone Carriage Operator Required: No Allergies lisinopril Allergy (Severe, Uncoded 08/30/23 06:17) Cough Medication List - Last Reconciled 07/24/24 by BUZZ Vital acetaminophen ER 650 - 1,300 mg PO TID PRN alendronate 70 mg PO QWEEK amlodipine 10 mg PO QAM atorvastatin 10 mg PO QAM [Celebrate 4 in 1 protein powder Scoops per shake per day will be under the direction of Dr Ding; ] fondaparinux 2.5 mg (0.5 mL) subcut Q24H furosemide 20 mg PO BID ondansetron 4 mg PO Q12H pantoprazole 40 mg PO DAILY sucralfate 10 mL PO BID tramadol 50 mg PO Q12H PRN HPI Comments Details: This?a?79?yo female who is s/p LSG without hiatal hernia repair on?08/30/23. Presents for 11 month post op visit. Weight today is 234 pounds, with a BMI of 38.9. There has been a 90.2 pound weight loss,(initial weight 324.2 pounds) since starting the program on 11/11/22 reflecting a 27.8% total body weight loss and a weight loss of 53.3 pounds since surgery (operative weight 287.3 pounds) reflecting a 18.5% TBWL since surgery. No complaints of nausea, emesis, abdominal pain or reflux. Reports infrequent but normal bowel movements every 2- 3 days and uses stool softeners regularly. taking fusion mvi Per her daughter her mom is doing fantastic. She is happy and has increased mobility, walking with ww and very little assistance. She had right TKR on 12/14/23, home recovering. She had L TKR mid june 2024. Now walking much better and recovering with use of WW. Having home PT. Changed to fairlife rtd shake without advice Present meal plan includes: Fairlife rtd 30 gm shake, 8-10 german yogurt 12-2 HB egg at 3 pm meal at 6 pm 8 forks protein and 8 forks veg drinking 32-48 oz water ? Exercise routine includes: youtube videos tg santana wheelchair videos, 4 x per week. 2 days of home PT 45 min each [facility] Medical History VTE (venous thromboembolism) Pre-op evaluation GERD (gastroesophageal reflux disease) DJD (degenerative joint disease) Sleep apnea treated with continuous positive airway pressure (CPAP) Dyspnea Pulmonary hypertension Personal history of COVID-19 (~04/2023) Bilateral knee pain Osteoporosis Elevated cholesterol HTN (hypertension) JOYCE on CPAP CTS (carpal tunnel syndrome) Limited mobility Aortic aneurysm without rupture Surgical History Status post total right knee replacement Hx of parathyroidectomy Family History Mother No problems noted. Father No problems noted. Brother Hypertension Daughter Hypertension Social History Household Members: Family Household Members Other:: lives with her daughter and grandson and sister Housing: House Are you a primary medicare sales representative to a significant other at home: No Do you presently have visiting nurse or other home services: Yes (physical therapy) 75 years or older and lives alone: No Alcohol intake: never Comment: confined to bed at home Patient Tobacco Use Status: Never used Tobacco service: No Telehealth Telehealth Telehealth Platform: Telephone Location of provider rendering services: practice address Location of patient: address on file Patient Identification confirmed using: Name, : Yes Telehealth method: voice only Patient verbally consented to treatment: Yes Patient verbally consented to billing insurance company: Yes Patient informed of any privacy concerns related to visit: Yes Minutes spent on Phone/Video with Pt.: 15 Assessment & Plan Assessment & Plan (1) S/P laparoscopic sleeve gastrectomy: Code(s): Z98.84 - Bariatric surgery status Category: Surgical Plan: Patient is doing very well. She was able to have both knee replacements done. She is recovering from her left knee. We made some adjustments accounting for the change in her meal plan that was done without communication. She will follow the plan as listed above. We will have her return to the office in approximately a month for her 1 year follow-up. Check labs at that time. Please continue to communicate weekly with any questions or concerns as well as sending weight measurements.
[2024-07-24 09:14] VITALS: BMI 38.9
--- OUTSIDE RECORDS SUMMARY | 2024-07-24 12:05 | XMS_ITS | Clinical Summary ---
Author Organization [employer] Address [address] [facility] 7t [place] [address] Care Team Providers Care Case Monitor Name Role Phone Karla Roche MD Primary Care Provider [phone] Allergies Active Allergy Reactions Criticality Noted Date Comments Lisinopril Cough Medium 12/17/2016 Medications Romosozumab-aqqg (EVENITY SC) Inject 210 mg under the skin every 28 (twenty-eight) days. 023 Active Calcium Citrate-Vitamin D 315-5 MG-MCG tablet TAKE TWO TABLETS THREE TIMES DAILY IN THE MORNING, EVENING AND BEDTIME 023 Active furosemide (Lasix) 20 MG tabletIndications :Essential hypertension Take 1 tablet (20 mg) by mouth 2 times daily. 60 tablet 1 023 Active Arthritis Pain Relief 650 MG ER tablet Take 1 tablet (650 mg) by mouth every 8 (eight) hours if needed for mild pain. TAKE 1-2 TABLETS BY MOUTH THREE TIMES DAILY NEEDED 30 tablet 3 024 Active alendronate (Fosamax) 70 MG tablet 70 mg. 023 Active fondaparinux (Arixtra) 2.5 MG/0.5ML solution INJECT [...] 10 ml's BY MOUTH TWICE DAILY Active atorvastatin (Lipitor) 10 MG tablet TAKE ONE TABLET EVERY MORNING 90 tablet 3 Active traMADol (Ultram) 50 MG tabletIndications :Arthralgia of both knees Take 1 tablet (50 mg) by mouth every 12 (twelve) hours if needed for severe pain. 60 tablet Active aspirin 81 MG EC tablet Take 1 tablet (81 mg) by mouth Once per day. 30 tablet 11 025 2025 Active amLODIPine (Norvasc) 10 MG tablet TAKE ONE TABLET EVERY MORNING 90 tablet 1 025 Active amLODIPine (Norvasc) 10 MG tablet TAKE ONE TABLET EVERY MORNING 90 tablet 1 024 2024 Discontinued Active Problems Problem Noted Date Diagnosed Date [...] Encounters Date Type Department Care Team Description 07/18/2024 Refill [facility] [address] [place] [address] Yanet Lackey MD 05/23/2024 11:15 AM EST Office Visit [facility] [address] [place] [address] Karla Roche MD Essential hypertension (Primary Dx); Arthralgia of both knees 05/23/2024 Travel 05/08/2024 Telephone [facility] [address] [place] [address] Karla Roche MD Med Refill from Last 3 Months Immunizations Name Administration [...] Vaccines (1 of 2) 07/11/1997 Pneumococcal Vaccine: 50+ Years (2 of 2 - PPSV23) 01/20/2019 01/20/2018 RSV Patients and Patients Aged 60 years or older (1 - 1-dose 75+ series) 07/11/2022 Influenza Vaccine (#1) 2024 05/19/2023, 2021 SDOH Screening 05/10/2024 05/10/2023 Tobacco Screening 05/19/2024 05/19/2023 Alcohol/Substance Use Screening 05/23/2025 05/23/2024 COVID-19 Vaccine ( season) 2025 09/17/2020, 08/20/2020 Postponed from 01/01/2024 (Patient Refused) Depression Screening 05/23/2025 05/23/2024, 05/23/19 DTaP/Tdap/Td Vaccines (2 - Td or Tdap) 09/14/2027 09/13/2017 Lipid Panel 05/23/2029 05/23/2024, 07/3 05/2022, 04/22/2022, Additional history exists HIB Vaccines Aged Out No longer eligi [...] Procedure Name Priority Date/Time Associated Diagnosis Comments HEPATIC FUNCTION PANEL Routine 05/23/2024 11:42 AM EST Essential hypertension LIPID PANEL, STANDARD Routine 05/23/2024 11:42 AM EST Essential hypertension BASIC METABOLIC PANEL Routine 05/23/2024 11:42 AM EST Essential hypertension from Last 3 Months Results * (ABNORMAL) Hepatic Function Panel (05/23/2024 11:42 AM EST) Bilirubin, Total 1.1(H) 0.0 - 1.0 mg/dL [facility] Bilirubin, Direct 0.4 0.0 - 0.5 mg/dL [facility] Aspartate Amino Transferase 20 5 - 31 U/L [facility] Alanine Aminotransferase 13 0 - 31 U/L [facility] Total Protein 7.5 6.5 - 8.0 g/dL [facility] Albumin Level 3.8 3.5 - 5.0 g/dL [facility] Alkaline Phosphatase 75 39 - 117 U/L [facility] Blood Venous blood specimen / Unknown 05/23/2024 11:42 AM EST 05/23/2024 2:07 PM EST us Karla Roche MD LAB BLOOD ORDERABLES Final Resul t [facility] [address] [place] [address] [phone] * (ABNORMAL) Lipid Panel, Standard (05/23/2024 11:42 AM EST) Triglycerides 82 <150 mg/dL [facility] Comment:Desirable Triglyceri de: less than 150 mg/dLBorderline High Triglyceride 150-199 mg/dLHigh Triglyceride: 200-499 mg/dLVery High Triglyceride: greater than or equal to 5OO mg/dL Cholesterol 178 <200 mg/dL [facility] Comment:Desirable Cholestero l: less than 200 mg/dLBorderline High Cholesterol: 200-239 mg/dLHigh Cholesterol: greater than 239 mg/dL LDL Cholesterol Calculated 118(H) <100 mg/dL [facility] Comment:Desirable LDL: less than 100 mg/dLNear Optimal/Above Optimal LDL: 110- 129 mg/dLBorderline High LDL: 130-159 mg/dLHigh LDL: 160-189 mg/dLVery High LDL: greater than or equal to 190 mg/dL HDL Cholesterol 44 >40 mg/dL [facility] Comment:Desirable HDL: great er than 40 mg/dL Note: This HDL assay may give artificially low results in patients with liver disease. Blood Venous blood specimen / Unknown 05/23/2024 11:42 AM EST 05/23/2024 2:07 PM EST us Karla Roche MD LAB BLOOD ORDERABLES Final Resul t [facility] [address] [place] [phone] * (ABNORMAL) Basic Metabolic Panel (05/23/2024 11:42 AM EST) Sodium 139 135 - 145 mmol/L [facility] Potassium 4.4 3.3 - 5.1 mmol/L [facility] Chloride 104 96 - 108 mmol/L [facility] Carbon Dioxide 30(H) 22 - 29 mmol/L [facility] Anion Gap 9(L) 12 - 20 [facility] Urea Nitrogen (BUN) 25(H) 9 - 16 mg/dL [facility] Creatinine, Serum 1.01 0.5 - 1.4 mg/dL [facility] Estimated Glomerular Filt Rate 53 [facility] Comment:Chronic Kidney Disea se: Estimated GFR < 60 mL/min/1.73v6Viwpmj Kidney Disease: Estimated GFR < 15 mL/min/1.73m2 Glucose 99 60 - 115 mg/dL [facility] Calcium 9.5 8.4 - 10.2 mg/dL [facility] Blood Venous blood specimen / Unknown 05/23/2024 11:42 AM EST 05/23/2024 2:07 PM EST Karla Roche MD LAB BLOOD ORDERABLES Final Resul t Performing Organization Address City/State/[facility] Co de Phone Number [facility] [address] [place] [phone] [phone] from Last 3 Months Insurance [facility] Advance Directives Documents on File Type Date Recorded Patient Breakfast Host Expl anation HealthCare Proxy 11/29/2022 HCP Care Teams Case Monitor Relationship Specialty Start Date End Date Karla Roche MD [address] [place] [phone] PCP - General Family Medicine 12/13/16 [facility] 09/20/23
--- OUTSIDE RECORDS SUMMARY | 2024-07-24 12:05 | XMS_ITS | Clinical Summary ---
Author Organization [facility] Address [address] [place] [address] Care Team Providers Care Die Machine Operator Name Role Phone Karla Roche Primary Care Provider [phone] Allergies Active Allergy Reactions Criticality Noted Date [...] (2 of 2 - PPSV23) 01/20/2019 01/20/2018 Basic Metabolic Panel 11/18/2021 11/18/2020 , 09/18/2020 RSV Vaccine (60+ years old and patients) (1 - 1-dose 75+ series) 07/11/2022 COVID-19 Vaccine (3 - 2023-2 5 season) 2024 09/17/2020, 08/20/2020 Influenza Vaccine (#1) 2024 Alcohol/Substance Use Screening 05/02/2024 Depression Screening and Follow-Up 05/02/2024 Health Care Proxy Review 05/02/2024 Social Drivers of Health Annual Screening 05/02/2024 DTaP,Tdap,and Td Vaccines (2 - Td or Tdap) 09/14/2027 09/13/2017 Hepatitis B Vaccines Aged Out No long er eligible based on patient's age to complete this topic Procedures * Due to [facility] law, this organization might not be sharing negative HIV tests. Procedure Name Priority Date/Time Associated Diagnosis Comments BASIC METABOLIC PANEL Routine 11/18/2020 1:14 PM EDT Preop testing Acute pain of right knee from Last 3 Months or Most Recently Relevant to Health Maintenance Results * Due to [facility] law, this organization might not be sharing negative HIV tests. * (ABNORMAL) Basic Metabolic Panel (11/18/2020 1:14 PM EDT) NA 139 135 - 145 mmol/L 11/18/2020 3:47 PM EDT [facility] K 3.0(LL) 3.5 - 5.3 mmol/L 11/18/2020 3:47 PM EDT [facility] Comment:Verified by repeat a nalysisi Cl 100 97 - 110 mmol/L 11/18/2020 3:47 PM EDT [facility] CO2 28 24 - 32 mmol/L 11/18/2020 3:47 PM EDT [facility] BUN 38(H) 7 - 23 mg/dL 11/18/2020 3:47 PM EDT [facility] Creatinine 1.29(H) 0.50 - 1.20 mg/dL 11/18/2020 3:47 PM EDT [facility] Glucose 98 70 - 99 mg/dL 11/18/2020 3:47 PM EDT [facility] Calcium 10.8(H) 8.7 - 10.7 mg/dL 11/18/2020 3:47 PM EDT [facility] Anion Gap 11 5 - 15 11/18/2020 3:47 PM EDT [facility] eGFR Non- 41(L) >=90 mL/min/BS A 11/18/2020 3:47 PM EDT [facility] eGFR 47(L) >=90 mL/min/BS A 11/18/2020 3:47 PM EDT [facility] Comment: Units = [...] Cline MD LAB BLOOD ORDERABLES Final Result [facility] [address] [place] [address], [place] from Last 3 Months or Most Recently Relevant to Health Maintenance Insurance [facility] Care Teams Die Machine Operator Relationship Specialty Start Date End Date KaleyKarla [address] [place] [phone] PCP - General Family Medicine 05/20/17
--- OUTSIDE RECORDS SUMMARY | 2024-07-24 12:05 | XMS_ITS | Clinical Summary ---
Author Organization [facility] Address [address] [facility] [address] [place] [phone] Phone Care Team Providers Care Hospital Scientist Name Role Phone Unavailable Primary Care Provider [...] age to complete this topic [place]
--- OUTSIDE RECORDS SUMMARY | 2024-07-24 12:06 | XMS_ITS | Encounter Summary ---
Author Organization [employer] Address [address] [facility] 7t [place] [address] Care Team Providers Care Manufacturing Maintenance Technician Name Role Phone Karla Roche MD Primary Care Provider [phone] Reason for Visit * Reason Onset Date Comments ER Follow-up 09/05/2023 Encounter Details Date Type Department Care Team ([facility] st Contact Info) Description 09/05/2023 Telephone [facility] [address] [place], [place] [phone] Karla Roche MD [address] [place] [address] ER Follow-up Social History Tobacco Use Types [...] Advised to f/u within a week. Hospital: [facility] Date of admission: 08/29 Discharge date: 08/30 Diagnosed: Weight loss surgery Please contact daughter at [phone] documented in this encounter Plan of Treatment Not on file documented as of this encounter Visit Diagnoses Not on filedocumented in this encounter Additional Health Concerns Assessment Noted Time PHQ-9 Depression Total Score: 0 05/19/19 24 9:52 AM EST documented as of this encounter Care Teams Manufacturing Maintenance Technician Relationship Specialty Start Date End Date Karla Roche MD [address] [place] [phone] PCP - General Family Medicine 12/13/16 [facility] 09/20/23 documented as of this encounter
--- OUTSIDE RECORDS SUMMARY | 2024-07-24 12:06 | XMS_ITS | Encounter Summary ---
Author Organization [employer] Address [address] 7[address] [place] [address] Care Team Providers Care Belt Conveyor Drier Name Role Phone Karla Roche MD Primary Care Provider [phone] Encounter Details Date Type Department Care Team ([facility] st Contact Info) Description 06/17/2022 Orders Only [facility] [address] [place] [address] Karla Roche MD [address] [place] [address] Social History Tobacco Use Types Packs/Day Years [...] documented as of this encounter Care Teams Belt Conveyor Drier Relationship Specialty Start Date End Date Karla Roche MD [address] [place] [phone] PCP - General Family Medicine 12/13/16 [facility] 09/20/23 documented as of this encounter
--- OUTSIDE RECORDS SUMMARY | 2024-07-24 12:06 | XMS_ITS | Encounter Summary ---
Author Organization [employer] Address [address] [facility] 7t [place] [address] Care Team Providers Care Director Of Rehabilitation And Wellness Name Role Phone Karla Roche MD Primary Care Provider [phone] Reason for Visit * Reason Onset Date Comments FYI 09/15/2023 Encounter Details Date Type Department Care Team ([facility] Contact Info) Description 09/15/2023 Telephone [facility] [address] [place] [address] Karla Roche MD [address] [place] [phone] Social History Tobacco Use Types Packs/Day Years [...] - 09/15/2023 2:47 PM EDT Tc from [facility] calling to report that they are able to admit the patient to homecare but would need up to date office notes from appt on 09/18 and it can be faxed to [phone] documented in this encounter Plan of Treatment Not on file documented as of this encounter Visit Diagnoses Not on filedocumented in this encounter Additional Health Concerns Assessment Noted Time PHQ-9 Depression Total Score: 0 05/19/19 9:52 AM EST documented as of this encounter Care Teams Director Of Rehabilitation And Wellness Relationship Specialty Start Date End Date Karla Roche MD [address] [place] [address] PCP - General Family Medicine 12/13/16 [facility] 09/20/23 documented as of this encounter
--- OUTSIDE RECORDS SUMMARY | 2024-07-24 12:06 | XMS_ITS | Encounter Summary ---
Author Organization [employer] Address [address] [facility] 7t [place] [address] Care Team Providers Care Office Machine Servicer Name Role Phone Karla Roche MD Primary Care Provider [phone] Reason for Visit * Reason Comments Med Refill Encounter Details Date Type Department Care Team ([facility] st Contact Info) Description 06/28/2022 Refill [facility] [address] [place], [place] [phone] Mitchell Foote MD [address] [place] [address] Essential hypertension Social History Tobacco Use Types [...] documented as of this encounter Care Teams Office Machine Servicer Relationship Specialty Start Date End Date Karla Roche MD [address] [place] [address] PCP - General Family Medicine 12/13/16 [facility] 09/20/23 documented as of this encounter
--- OUTSIDE RECORDS SUMMARY | 2024-07-24 12:06 | XMS_ITS | Encounter Summary ---
Author Organization [employer] Address [address] [facility] 7t [place] [address] Care Team Providers Care Cable Installation Technician Name Role Phone Karla Roche MD Primary Care Provider [phone] Reason for Visit * Reason Comments Med Refill Encounter Details Date Type Department Care Team ([facility] st Contact Info) Description 09/23/2023 Refill [facility] [address] [place], [place] [phone] Karla Roche MD [address] [place] [address] Chronic pain of both knees Social History [...] documented as of this encounter Care Teams Cable Installation Technician Relationship Specialty Start Date End Date Karla Roche MD [address] [place] [phone] PCP - General Family Medicine 12/13/16 [facility] 09/20/23 documented as of this encounter
--- OUTSIDE RECORDS SUMMARY | 2024-07-24 12:06 | XMS_ITS | Encounter Summary ---
Author Organization [employer] Address [address] [facility] [address] [place] [address] Care Team Providers Care Web Retailer Name Role Phone Karla Roche MD Primary Care Provider [phone] Encounter Details Date Type Department Care Team ([facility] st Contact Info) Description 04/22/2022 Orders Only [facility] [address] [place] [address] Karla Roche MD [address] [place] [address] Social History Tobacco Use Types Packs/Day Years [...] documented as of this encounter Care Teams Web Retailer Relationship Specialty Start Date End Date Karla Roche MD [address] [place] [phone] PCP - General Family Medicine 12/13/16 [facility] 09/20/23 documented as of this encounter
--- OUTSIDE RECORDS SUMMARY | 2024-07-24 12:06 | XMS_ITS | Data Portability ---
Author Organization [facility], [facility] Address [address] [place] [id number] Care Team Providers Care Peer Tutor Name Role Phone [facility] Referring Provider Assessment Encounter Date Assessment Date Assessment LastModified by Organization Details LastModified Time 07/14/2022 07/14/2022 I have reviewed and agree with the assessment and plan as documented by the textile knitter. I provided real time medical direction for this encounter and was immediately available to provide additional phone based assistance as needed. History as noted by textile knitter. Pt s/p recent parathyroidectomy in May for [...] serum or plasma 023 07/15/[address] [facility], [address] [place] [address], [place], [address], 12:27:45 Referral None recorded . Procedures None [...] BUN 23 Not Available Main - Ins [address], [address], 07/14/2022 12:26:57 07/15/19 23 07/14/2022 BMP, serum or plasm a Ca 0.91 (iCal) Not Available Main - [address], [address], 07/14/2022 12:26:57 07/15/19 23 07/14/2022 BMP, serum or plasm a CI- 103 Not Available Main - Ins [address], [address], 07/14/2022 12:26:57 07/15/19 23 07/14/2022 BMP, serum or plasm a CRE 1.3 Not Available Main - Ins [address], [address], 07/14/2022 12:26:57 07/15/19 23 07/14/2022 BMP, serum or plasm a GLU 93 Not Available Main - Ins [address], [address], 07/14/2022 12:26:57 07/15/19 23 07/14/2022 BMP, serum or plasm a K+ 4.2 Not Available Main - Ins [address], [address], 07/14/2022 12:26:57 07/15/19 23 07/14/2022 BMP, serum or plasm a Na+ 141 Not Available Main - Ins [address], [address], 07/14/2022 12:26:57 07/15/19 23 07/14/2022 BMP, serum or plasm a tCO2 28 Not Available Main - Ins [address], [address], 07/14/2022 12:26:57 Result Notes None recorded. Medical [...] 3 74 /min 95 % 95 % 404963. 6 g 98.6 [degF] 14 /min 158307. 6 g 98.6 [degF] 14 /min 95 [...] Ezekiel Munoz MD Main - instED [address] [place] [address] 07/14/2022 12:20:30 07/16/2022 11:02:48 Hypocalcemia 0524950 E83.51 Health Concerns Section Related Observation LastModified by Organization Detai ls LastModified Time None Recorded Concern Status LastModified by Organization Details LastModified Time None Recorded Advance Directives Directive None Recorded Payers Encounter Date Sequence Insurance Name Policy Number Policy Melchor Covered Member ID Melchor Member ID Guarantor Name 07/14/2022 1 [facility] - DOS PRIOR TO 2022 - DUAL ELIGIBLE (MEDICARE REPLACEMENT/ADV ANTAGE - HMO) Mary Glo [id number] Mary Stashaylee Notes Date Note Type Note Provider Name and Address Organization Details Recorded Time 07/14/2022 text/html This was a supervised home visit with textile knitter Bennett Morales. [facility] Nursing Assessment: Reason For Request: calcium level [...] .................. .................. .................. .................. .................. .................. ............... [place] U[employer]olste[employer] Note From Bennett Morales: Pt presents A@Ox4 pink warm and dry. Visit scheduled for routine bloodwork since pt recent surgery. Pt had history of low calcium since the surgery. Pt has no complaints today. Denies CP SOB F/N/V/D . Baseline vitals assessed and recorded. Vitals stable. POC blooddraw . Low Ica at. 091 . [facility] contacted and patient advise to follow up with with whom she has an appt with later today. Pt educated on signs gavin would indicate the ED. .................. .................. .................. .................. .................. .................. .................. ............... Disposition: Fulfilled Ezekiel Munoz MD [address] [facility],[address], [place], [address], [employer] 07/14/2022 15:54:24 OBGyn Episode No OBEpisode recorded.
--- OUTSIDE RECORDS SUMMARY | 2024-07-24 12:06 | XMS_ITS | Referral Summary ---
Author Organization [facility] Address [address] [place] [address] Care Team Providers Care Body Technician/Painter Name Role Phone Karla Roche Primary Care Provider [phone] Allergies Active Allergy Reactions Criticality Noted Date [...] Not on file Procedures * Due to [place] [employer] law, this organization might not be sharing negative HIV tests. Procedure Name Priority Date/Time Associated Diagnosis Comments BASIC METABOLIC PANEL Routine 11/18/2020 1:14 PM EDT Preop testing Acute pain of right knee from Last 3 Months or Most Recently Relevant to Health Maintenance Results * Due to [place] My[employer] law, this organization might not be sharing negative HIV tests. * (ABNORMAL) Basic Metabolic Panel (11/18/2020 1:14 PM EDT) NA 139 135 - 145 mmol/L 11/18/2020 3:47 PM EDT [facility] K 3.0(LL) 3.5 - 5.3 mmol/L 11/18/2020 3:47 PM [facility] Comment:Verified by repeat a nalysisi Cl 100 97 - 110 mmol/L 11/18/2020 3:47 PM [facility] CO2 28 24 - 32 mmol/L 11/18/2020 3:47 PM [facility] BUN 38(H) 7 - 23 mg/dL 11/18/2020 3:47 PM [facility] Creatinine 1.29(H) 0.50 - 1.20 mg/dL 11/18/2020 3:47 PM [facility] Glucose 98 70 - 99 mg/dL 11/18/2020 3:47 PM [facility] Calcium 10.8(H) 8.7 - 10.7 mg/dL 11/18/2020 3:47 PM [facility] Anion Gap 11 5 - 15 11/18/2020 3:47 PM [facility] eGFR Non- 41(L) >=90 mL/min/BS A 11/18/2020 3:47 PM [facility] eGFR 47(L) >=90 mL/min/BS A 11/18/2020 3:47 PM [facility] Comment: Units = mL/min/1.73 m2 [...] Cline MD LAB BLOOD ORDERABLES Final Result [facility] [address] [place] [address], from Last 3 Months or Most Recently Relevant to Health Maintenance Insurance [place] [address] Care Teams Body Technician/Painter Relationship Specialty Start Date End Date Karla Roche [address] [place] [address] PCP - General Family Medicine 05/20/17
--- OUTSIDE RECORDS SUMMARY | 2024-07-24 12:06 | XMS_ITS | Encounter Summary ---
Author Organization [employer] Address [address] [facility] 7 [place] [address] Care Team Providers Care Supervisor Name Role Phone Karla Roche MD Primary Care Provider [phone] Reason for Visit * Reason Comments Med Refill Encounter Details Date Type Department Care Team ([facility] st Contact Info) Description 07/18/2024 Refill [facility] [address] [place] [address] Yanet Lackey MD [address] [place] [address] Social History Tobacco Use Types Packs/Day Years [...] documented as of this encounter Care Teams Supervisor Relationship Specialty Start Date End Date Karla Roche MD [address] [place] [address] PCP - General Family Medicine 12/13/16 [facility] 09/20/23 documented as of this encounter
--- OUTSIDE RECORDS SUMMARY | 2024-07-24 12:06 | XMS_ITS | Encounter Summary ---
Author Organization [employer] Address [address] [place] [address] 7 [place] [address] Care Team Providers Care Director Of Advertising Sales Name Role Phone Karla Roche MD Primary Care Provider [phone] Encounter Details Date Type Department Care Team ([facility] st Contact Info) Description 12/20/2022 [facility] Information Management [address] [place], [place] [phone] Karla Roche MD [address] [place], [place] [phone] Social History Tobacco Use Types Packs/Day Years [...] of this encounter Care Teams Director Of Advertising Sales Relationship Specialty Start Date End Date Karla Roche MD [address] [place], [place] [phone] PCP - General Family Medicine 12/13/16 [facility] 09/20/23 documented as of this encounter
--- OUTSIDE RECORDS SUMMARY | 2024-07-24 12:06 | XMS_ITS | Encounter Summary ---
Author Organization [employer] Address [address] [facility] 7t [place] [address] Care Team Providers Care University Librarian Name Role Phone Karla Roche MD Primary Care Provider Reason for Visit * Reason Comments Med Refill Encounter Details Date Type Department Care Team ([facility] st Contact Info) Description 10/06/2023 Refill [facility] [address] [place], [place] [phone] Karla Roche MD [address] [place] [address] Chronic pain of both knees Social History [...] documented as of this encounter Care Teams University Librarian Relationship Specialty Start Date End Date Karla Roche MD [address] [place] [address] PCP - General Family Medicine 12/13/16 [facility] 09/20/23 documented as of this encounter
--- OUTSIDE RECORDS SUMMARY | 2024-07-24 12:06 | XMS_ITS | Encounter Summary ---
Author Organization [employer] Address [address] [facility] 7t [place] [address] Care Team Providers Care Epoxy Specialist Name Role Phone Karla Roche MD Primary Care Provider [phone] Reason for Visit * Reason Onset Date Comments Referral 09/12/2023 Encounter Details Date Type Department Care Team ([facility] st Contact Info) Description 09/12/2023 Telephone [facility] [address] [place] [address] Karla Roche MD [address] [place] [phone] Referral Social History Tobacco Use Types Packs/Day [...] Miscellaneous Notes * Telephone Encounter - Karla Rohce MD - 09/14/2023 9:59 AM EDT Sent * Telephone Encounter - Ju Blum - 09/12/2023 2:29 PM EDT Tc from daughter requesting to renew referral for PT at [facility] To be fax to [facility] documented in this encounter Plan of Treatment Not on file documented as of this encounter Visit Diagnoses Not on filedocumented in this encounter Additional Health Concerns Assessment Noted Time PHQ-9 Depression Total Score: 0 05/19/19 24 9:52 AM EST documented as of this encounter Care Teams Epoxy Specialist Relationship Specialty Start Date End Date Karla Roche MD [address] [place] [id number] PCP - General Family Medicine 12/13/16 [facility] 09/20/23 documented as of this encounter
--- OUTSIDE RECORDS SUMMARY | 2024-07-24 12:06 | XMS_ITS | Encounter Summary ---
Author Organization [employer] Address [address] [facility] [address] 7[address] [place] [address] Care Team Providers Care Supervisor Engine Repair Name Role Phone Karla Roche MD Primary Care Provider [phone] Encounter Details Date Type Department Care Team ([facility] st Contact Info) Description 10/04/2023 Telephone [facility] [address] [place] [address] Karla Roche MD [address] [place] [address] Social History Tobacco Use Types Packs/Day Years [...] t he electric, gas, oil or water [employer] threatened to shut off services in your [...] wanted to inform orders are listed for [facility] care and it was mistakenly faxed to [facility]. If any questions you can contact [facility] at [phone]. documented in this encounter Plan of Treatment Not on file documented as of this encounter Visit Diagnoses Not on filedocumented in this encounter Additional Health Concerns Assessment Noted Time PHQ-9 Depression Total Score: 0 05/19/19 24 9:52 AM EST documented as of this encounter Care Teams Supervisor Engine Repair Relationship Specialty Start Date End Date Karla Roche MD [address] [place] [address] PCP - General Family Medicine 12/13/16 [facility] 09/20/23 documented as of this encounter
--- OUTSIDE RECORDS SUMMARY | 2024-07-24 12:06 | XMS_ITS | Encounter Summary ---
Author Organization [employer] Address [address] [facility] 7t [place] [address] Care Team Providers Care Slasher Tender Name Role Phone Karla Roche MD Primary Care Provider [phone] Reason for Visit * Reason Comments Med Refill Encounter Details Date Type Department Care Team ([facility] st Contact Info) Description 09/23/2023 Refill [facility] [address] [place], [place] [phone] Karla Roche MD [address] [place] [address] Chronic pain of both knees Social History [...] documented as of this encounter Care Teams Slasher Tender Relationship Specialty Start Date End Date Karla Roche MD [address] [place] [phone] PCP - General Family Medicine 12/13/16 [facility] 09/20/23 documented as of this encounter
--- OUTSIDE RECORDS SUMMARY | 2024-07-24 12:06 | XMS_ITS | Encounter Summary ---
Author Organization [employer] Address [address] [facility] 7t [place] [address] Care Team Providers Care Sign Carpenter Name Role Phone Karla Roche MD Primary Care Provider [phone] Reason for Visit * Reason Onset Date Comments Verbal Orders 11/16/2023 Encounter Details Date Type Department Care Team ([facility] Contact Info) Description 11/16/2023 Telephone [facility] [address] [place] [address] Karla Roche MD [address] [place] [phone] Verbal Orders Social History Tobacco Use Types [...] documented as of this encounter Care Teams Sign Carpenter Relationship Specialty Start Date End Date Karla Roche MD [address] [place] [phone] PCP - General Family Medicine 12/13/16 [facility] 09/20/23 documented as of this encounter
== END 2024-07-24 10:24 | disposition home or self-care (01) ==
LOC: HO.HBS 10:10
PROVIDERS: PCP Student in an Organized Health Care Education/Training Program; Visit Provider Physician Assistant Surgical
DX: E66.812 Obesity, class 2 (principal); Z68.38 Body mass index [BMI] 38.0-38.9, adult; Z90.3 Acquired absence of stomach [part of]; Z98.84 Bariatric surgery status
CPT/HCPCS: 99213; G2211

== ENCOUNTER 2024-09-27 10:38 | Outpatient (REF) | payer OTHER, SELFPAY ==
--- OUTSIDE RECORDS SUMMARY | 2024-09-27 11:08 | XMS_ITS | Clinical Summary ---
Author Organization [facility] Address [address] [place] [address] Care Team Providers Care Buckshot Swage Operator Name Role Phone Karla Roche Primary Care Provider [phone] Allergies Active Allergy Reactions Criticality Noted Date [...] - 2023-2 5 season) 2024 09/17/2020, 08/20/2020 Alcohol/Substance Use Screening 05/02/2024 Depression Screening and Follow-Up 05/02/2024 Health Care Proxy Review 05/02/2024 Social Drivers of Health Annual Screening 05/02/2024 Influenza Vaccine (Season Ended) 2024 DTaP,Tdap,and Td Vaccines (2 - Td or Tdap) 09/14/2027 09/13/2017 Hepatitis B Vaccines Aged Out No long er eligible based on patient's age to complete this topic Procedures * Due to [facility] law, this organization might not be sharing negative HIV tests. Procedure Name Priority Date/Time Associated Diagnosis Comments BASIC METABOLIC PANEL Routine 11/18/2020 1:14 PM EDT Preop testing Acute pain of right knee from Last 3 Months or Most Recently Relevant to Health Maintenance Results * Due to [facility] law, this organization might not be sharing negative HIV tests. * (ABNORMAL) Basic Metabolic Panel (11/18/2020 1:14 PM EDT) NA 139 135 - 145 mmol/L 11/18/2020 3:47 PM EDT [facility] K 3.0(LL) 3.5 - 5.3 mmol/L 11/18/2020 3:47 PM EDT [facility] Comment:Verified by repeat a nalysisi Cl 100 97 - 110 mmol/L 11/18/2020 3:47 PM EDT [facility] CO2 28 24 - 32 mmol/L 11/18/2020 3:47 PM EDT [facility] BUN 38(H) 7 - 23 mg/dL 11/18/2020 3:47 PM EDT [facility] Creatinine 1.29(H) 0.50 - 1.20 mg/dL 11/18/2020 3:47 PM EDT [facility] Glucose 98 70 - 99 mg/dL 11/18/2020 3:47 PM EDT [facility] Calcium 10.8(H) 8.7 - 10.7 mg/dL 11/18/2020 3:47 PM EDT [facility] Anion Gap 11 5 - 15 11/18/2020 3:47 PM EDT [facility] eGFR Non- 41(L) >=90 mL/min/BS A 11/18/2020 3:47 PM EDT [facility] eGFR 47(L) >=90 mL/min/BS A 11/18/2020 3:47 PM EDT [facility] Comment: Units = [...] Cline MD LAB BLOOD ORDERABLES Final Result [facility] [address] [place] [address], [place] from Last 3 Months or Most Recently Relevant to Health Maintenance Insurance [facility] Care Teams Buckshot Swage Operator Relationship Specialty Start Date End Date KaleyKarla [address] [place] [phone] PCP - General Family Medicine 05/20/17
[2024-09-27 14:36] LABS: Alanine Aminotransferase 11 U/L (0-31); Albumin Level 3.8 g/dL (3.5-5.0); Alkaline Phosphatase 80 U/L (39-117); Anion Gap 13 (12-20); Aspartate Amino Transferase 19 U/L (5-31); Bilirubin Direct 0.3 mg/dL (0.0-0.5); Bilirubin Total 0.8 mg/dL (0.0-1.0); Blood Urea Nitrogen 29 mg/dL (9-16); Calcium 8.6 mg/dL (8.4-10.2); Carbon Dioxide 29 mmol/L (22-29); Chloride 106 mmol/L (96-108); Cholesterol 145 mg/dL (<200); Estimated Glomerular Filt Rate 40; Glucose Random 105 mg/dL (60-115); HDL Cholesterol 45 mg/dL (>40); LDL Cholesterol Calculated 87 mg/dL (<100); Potassium 4.3 mmol/L (3.3-5.1); Sodium 144 mmol/L (135-145); Total Protein 7.2 g/dL (6.5-8.0); Triglycerides 67 mg/dL (<150)
== END 2024-09-27 10:39 | disposition home or self-care (01) ==
LOC: HO.CHCLDS 10:38
PROVIDERS: Visit Provider Student in an Organized Health Care Education/Training Program
DX: I10 Essential (primary) hypertension (principal)
CPT/HCPCS: 36415; 80048; 80061; 80076